=== PATIENT | female | born 1955 | race Caucasian/White ===

== ENCOUNTER → 2020-01-03 16:43 | Outpatient (CLI) | payer OTHER, SELFPAY ==
--- NOTE | ~2020-01-03 | MM_ITS ---
EXAMINATION: MM screening vic BI w zoila HISTORY: Screening TECHNIQUE: Craniocaudal and mediolateral oblique 3-D tomosynthesis images were obtained and synthetic 2-D images were generated. CAD analysis was submitted and interpreted. COMPARISON: No prior mammogram is available for comparison at this institution. Comparison to multipl e prior studies sequentially, with oldest reviewed study dated 02/04/2014. BREAST PARENCHYMAL COMPOSITION: There are scattered areas of fibroglandular density. FINDINGS: There are benign-appearing bilateral breast calcifications. There is no evidence of suspici ous mass, calcification, or architectural distortion to suggest malignancy in either breast. There dias s been no suspicious interval change. IMPRESSION: 1. No mammographic evidence of malignancy. 2. Recommend routine screening mammography in one year. BI-RADS Category 1: Negative Reviewed, dictated and finalized at location A.
== END ==
PROVIDERS: PCP Family Medicine; Visit Provider Obstetrics & Gynecology
DX: Z12.31 Encounter for screening mammogram for malignant neoplasm of breast (principal)
CPT/HCPCS: 77063; 77067

== ENCOUNTER → 2021-06-11 10:13 | Outpatient (CLI) | payer MEDICARE, SELFPAY ==
--- NOTE | ~2021-06-11 | MM_ITS ---
EXAMINATION: MM screening vic BI w zoila HISTORY: Screening mammogram TECHNIQUE: Craniocaudal and mediolateral oblique 3-D tomosynthesis images were obtained and synthetic 2-D images were generated. CAD analysis was submitted and interpreted. COMPARISON: 01/03/2020, 07/05/2018, 01/06/2017 bilateral screening mammogram examinations BREAST PARENCHYMAL COMPOSITION: There are scattered areas of fibroglandular density. FINDINGS: Scattered bilateral benign calcifications are again present. There is no evidence of suspic ious mass, calcification, or architectural distortion to suggest malignancy in either breast. There h as been no suspicious interval change. IMPRESSION: 1. No mammographic evidence of malignancy. 2. Recommend routine screening mammography in one year. BI-RADS Category 2: Benign finding(s). Reviewed, dictated and finalized at location C.
--- NOTE | ~2021-06-11 | DEXA_ITS ---
Bone Density Report Name: SG DASILVA Age: 66 Sex: Female Ethnicity: White Date of : 1955 Indication: postmenopausal; screening for osteoporosis; Referring Provider: ATTILA BLANCHARD Study: Bone densitometry was performed. Exam Date: June 11, 2021 Accession number: [id number] Bone Density: Region BMD T-score Z-score Classification AP Spine (L1-L4) 1.085 0.3 2.2 Normal Femoral Neck (Left) 0.827 -0.2 1.4 Normal Total Hip (Left) 1.136 1.6 2.9 Normal Femoral Neck (Right) 0.797 -0.5 1.1 Normal Total Hip (Right) 1.032 0.7 2.0 Normal Total Hip Mean 1.084 1.2 2.5 Normal World Health Organization criteria for BMD impression classify patients as: Normal (T-score at or above -1.0), Osteopenia (T-score between -1.0 and -2.5), or Osteoporosis (T-score at or below -2.5). 10-year Fracture Risk: FRAX not reported because: All T-scores for Spine Total, Hip Total, Femoral Neck at or above -1.0 Previous Exams: Region Exam Age BMD T-score BMD Change BMD Change Date g/cm2 vs Baseline vs Previous AP Spine(L1-L4) 06/11/2021 66 1.085 0.3 -0.050* 0.032* 07/05/2018 63 1.053 0.1 -0.082* 0.007 11/21/2014 59 1.046 0.0 -0.089 -0.050 10/29/2011 56 1.096 0.4 -0.039* 0.007 03/19/2009 54 1.089 0.4 -0.046 -0.046 02/09/2008 53 1.135 0.8 Total Hip(Left) 06/11/2021 66 1.136 1.6 -0.011 0.030* 07/05/2018 63 1.106 1.3 -0.041* -0.064 11/21/2014 59 1.170 1.9 0.023 -0.022 10/29/2011 56 1.192 2.1 0.045* 0.152 03/19/2009 54 1.040 0.8 -0.107 -0.107 02/09/2008 53 1.147 1.7 Total Hip(Right) 06/11/2021 66 1.032 0.7 -0.091* 0.007 07/05/2018 63 1.025 0.7 -0.098* -0.076 11/21/2014 59 1.101 1.3 -0.022 -0.039 10/29/2011 56 1.139 1.6 0.017 0.101 03/19/2009 54 1.039 0.8 -0.084 -0.084 02/09/2008 53 1.123 1.5 *Denotes significance at 95% confidence level, LSC for AP Spine = 0.022 g/cm2, LSC for Total Hip = 0.027 g/cm2 Clinical Information Provided by Patient: Has used the following medications: Vitamin D, Calcium Patient maximum height was 68 Menopause Age: 51 No regular weight bearing exercise Drinks caffeinated beverages Onset of menses at age 12 Number of children 2
== END ==
PROVIDERS: PCP Registered Nurse; Visit Provider Obstetrics & Gynecology
DX: Z12.31 Encounter for screening mammogram for malignant neoplasm of breast (principal); Z78.0 Asymptomatic menopausal state
CPT/HCPCS: 77063; 77067; 77080

== ENCOUNTER 2021-07-20 08:22 | Outpatient (CLI) | payer MEDICARE, SELFPAY ==
--- NOTE | 2021-07-20 09:21 | ECG_ITS ---
Measurements Intervals [place] Rate: 64 P: 33 FL: 121 QRS: -5 QRSD: 89 T: 30 QT: 396 QTc: 410 Interpretive Statements SINUS RHYTHM INCOMPLETE RIGHT BUNDLE BRANCH BLOCK BASELINE ARTIFACT- I, II, AVR, AVL, AVF BORDERLINE ECG Electronically Signed On 07-20-2021 9:47:50 CDT by Saeid Tillman D.O.
[2021-07-20 09:44] LABS: Basophils Absolute Auto 0.1 K/mm3 (0.0-0.1); Basophils Percent Auto 1.2 % (0.2-1.2); Eosinophils Absolute Auto 0.4 K/mm3 (0-0.3); Eosinophils Percent Auto 4.2 % (0-4.4); Hematocrit 43.8 % (37.0-47.0); Hemoglobin 14.9 g/dL (12.0-15.0); Immature Granulocyte Absolute 0.03 K/mm3 (0.00-0.031); Immature Granulocyte Percent A 0.4 % (0-0.5); Lymphocytes Absolute Auto 2.09 K/mm3 (0.9-3.2); Lymphocytes Percent Auto 25.1 % (18.3-44.2); Mean Corpuscular Hemoglobin 30.5 pg (26-34); Mean Corpuscular Volume 89.8 fl (80-100); Mean Platelet Volume 11.7 fl (7.4-10.4); Monocytes Absolute Auto 0.7 K/mm3 (0.1-0.6); Monocytes Percent Auto 8.2 % (2.6-8.5); Neutrophils Absolute Auto 5.1 K/mm3 (1.3-6.7); Neutrophils Percent Auto 60.9 % (45.5-73.1); Platelet Count Result 158 k/mm3 (150-375); Red Blood Count 4.88 M/mm3 (4.2-5.4); Red Cell Distribution Width 12.2 % (11.5-14.5); White Blood Count 8.3 K/mm3 (4.5-10.0)
[2021-07-20 09:54] LABS: Alanine Aminotransferase 36 U/L (4-35); Albumin Level 4.5 g/dL (3.5-5.1); Alkaline Phosphatase 69 U/L (38-126); Anion Gap 7 mmol/L (8-16); Aspartate Amino Transferase 39 U/L (14-36); Bilirubin,Total 1.1 mg/dL (0.2-1.3); Blood Urea Nitrogen 15 mg/dL (7-17); Calcium 9.7 mg/dL (8.4-10.2); Carbon Dioxide 30 mmol/L (22-30); Chloride 104 mmol/L (98-107); Estimated Glomerular Filt Rate > 60; Glucose 105 mg/dL (65-110); Potassium 3.8 mmol/L (3.4-5.0); Sodium 141 mmol/L (137-145)
[2021-07-20 09:56] LABS: INR 1.1; Prothrombin Time 13.9 Seconds (11.1-14.7)
[2021-07-20 09:57] LABS: Partial Thromboplastin Time 26.4 SECONDS (22.3-36.8)
== END 2021-07-20 08:23 | disposition home or self-care (01) ==
LOC: ANHSURGERY 08:24
PROVIDERS: PCP Registered Nurse; Visit Provider Urology
DX: N81.4 Uterovaginal prolapse, unspecified (principal); I10 Essential (primary) hypertension; Z01.818 Encounter for other preprocedural examination; I45.10 Unspecified right bundle-branch block
CPT/HCPCS: 36415; 80053; 85025; 85610; 85730; 86850; 86900; 86901; 87086; 87088; 93005

== ENCOUNTER 2021-07-27 02:24 | Day surgery (SDC) | payer MEDICARE, SELFPAY ==
--- NOTE | 2021-07-20 08:52 | PC.NURSE ---
Report to the Outpatient Waiting Room, entrance under the green pavilion located off [facility], at time _1000 AM on date _07/27/21 . OR Time: __1200 . - You and your visitor will be asked a series of questions to screen for COVID 19 for your protection. - Only one visitor is allowed at this time. - The patient visitor is requested to leave or wait in car when not with patient. - A mask is required within the hospital. Patients may have clear liquids (water, carbonated beverages, clear teas, apple juice) until 3 hours prior to surgery with a maximum of 20 ounces. - No food from midnight until time of surgery - Infants may have breast milk until 4 hours before surgery, infant formula 6 hours prior to surgery. - Children will be allowed to drink immediately following surgery. If applicable, please bring a bottle or sippy cup to assist with drinking. Juice, water, soda, and popsicles are readily available. For infants on formula, please bring formula the day of surgery. Pacifiers are allowed. Take the following medications with a SIP of water the morning of surgery: _LEVOTHYROXINE Medications to discontinue per physician ___PT STATES LAST DOSE ASPIRIN 07/18/[address] BLANCHARD.ALL VITAMINS AND SUPPLEMENTS 3 DAYS PRE OP Date to take last dose___07/23/21 Please no make-up, nail vietnamese, hairspray, perfume, deodorant, or body powder the day of surgery. No jewelry (including any body piercings) or valuables the day of surgery, leave them at home. Please take a shower or bath the night before, or the morning of, surgery with an antibacterial soap. Wear comfortable, loose fitting clothing. Children are encouraged to wear pajamas. - Jewelry must be removed prior to entering the operating room. Rings and piercings that are not removed may be cut off. - The hospital will not accept responsibility for valuables. - Please leave all valuables, including medications, at home the day of surgery. If you are going home after surgery, a licensed local combination truck driver must drive you home. - NO public transportation without another adult. - We recommend that an adult stay with you for 24 hours following discharge. - We also recommend that you do not drive, make important decision, drink alcoholic beverages, or take any drugs that were not prescribed by your health care provider for at least 24 hours after your discharge time. For Pediatric surgeries, we recommend two adults accompany the child home (only one inside the building at this time). Follow any additional instructions given to you from your surgeon. If you or anyone in your household have experienced Covid symptoms in the past week, please notify your surgeon or the nurse liaison at the phone number below for possible testing. VERBAL AND WRITTEN instructions given to PATIENT and asked if any additional questions and then verbalized understanding. Patient advised to call surgeon office or pre surgery nurse liaison [phone] if any additional questions.
[2021-07-20 09:13] VITALS: BP 158/86; PULSE 72; RESP 18; TEMP 36.7; O2SAT 98; BMI 34.4
--- NOTE | 2021-07-24 08:08 | PM.IMHP ---
H&P: HPI History of Present Illness Date/Time: 07/24/21 08:08 66-year-old with uterine prolapse and stress incontinence noted on urodynamics Chief Complaint: Pelvic organ prolapse, stress incontinence Review of Systems Review of Systems: All systems reviewed & are unremarkable except as noted in HPI and below PMFSH Past Medical History Medical History History of diverticulosis Surgical History Surgical History H/O cardiac radiofrequency ablation History of right knee joint replacement Hx of neck surgery Family History Family History Grandparent Diabetes mellitus, Onset Age: 85 Carcinoma of colon Family history of pulmonary embolism, Onset Age: 91 Family history of tuberculosis Sibling Family history of blood dyscrasia, Onset Age: 51 Cerebrovascular accident, Onset Age: 51 Patient's sister is Family history of migraine headaches Asthma Family history of eczema Patient's brother is in good health, Onset Age: 56 Family history of allergic disorder Family history of elevated blood lipids Father Hypertension Family history of coronary artery disease, Onset Age: 71 Patient's father is Family history of premature coronary heart disease, Onset Age: 70 Mother Carcinoma of colon Patient's mother is Family history of migraine headaches Asthma Family history of osteoarthritis Family history of hearing loss, Onset Age: 65 Other Family history of malignant neoplasm of male breast Social History Social History Smoking status: Never smoker Second hand tobacco smoke exposure: No Alcohol intake: never Spiritual care concerns: No Meds Home Medications and Allergies Home Medications Medication Instructions Recorded Confirmed Type aspirin 81 mg tablet,delayed 81 mg PO DAILY 02/05/20 07/20/21 History release ramipril 10 mg capsule 10 mg PO BID 02/05/20 07/20/21 History levothyroxine 100 mcg capsule 100 mcg PO DAILY 03/05/21 07/20/21 History hydrochlorothiazide 12.5 mg tablet 12.5 mg PO DAILY 07/09/21 07/20/21 History linaclotide 72 mcg capsule 74 mcg PO PRN PRN cap 07/09/21 07/20/21 History ascorbic acid (vitamin C) 500 mg PO DAILY 07/20/21 07/20/21 History calcium carbonate-vitamin D3 2 tablet PO DAILY 07/20/21 07/20/21 History [Calcium 600 + D(3)] famotidine [Pepcid] 20 mg PO PRN PRN 07/20/21 07/20/21 History Allergies Allergy/AdvReac Type Severity Reaction Status Date / Time cefuroxime Allergy Unknown Rash Verified 07/20/21 08:32 Cephalosporins Allergy Unknown Rash Verified 07/20/21 08:31 Quinolones Allergy Unknown Rash Verified 07/20/21 08:31 nalbuphine [From Nubain] Allergy Nausea and Verified 07/20/21 08:40 Vomiting GEMIFLOXACIN MESYLATE Allergy Severe RASH Uncoded 07/20/21 08:31 Exam Narrative: No acute distress Normal breathing Alert oriented x3 Urethral mobility [place] at +2 Assessment and Plan Assessment and plan (1) Uterine prolapse: Code(s): N81.4 - Uterovaginal prolapse, unspecified Status: Acute Assessment and Plan: Robotic sacral colpopexy (2) ZOË (stress urinary incontinence, female): Code(s): N39.3 - Stress incontinence (female) (male) Status: Acute Assessment and Plan: Urethral sling
[2021-07-27] VITALS (10 sets, daily range): BP systolic 109–146; BP diastolic 59–90; PULSE 54–82; RESP 16–20; TEMP 35.7–36.6; O2SAT 93–100
--- NOTE | 2021-07-27 07:21 | WPDHPUPDATE1 ---
History and Physical Update Update Date/Time: 07/27/21 07:21 History and Physical has been reviewed, including an updated exam of the patient. There are NO changes in the patient's condition. Risks, benefits, and alternatives have been discussed and questions answered. Patient agrees to proceed with procedure.
--- NOTE | 2021-07-27 10:02 | PM.IMHP ---
H&P: HPI History of Present Illness Date/Time: 07/27/21 10:02 Patient with history of incomplete uterine prolapse. She desires definitive treatment with sacralcolpopexy. Necessitating supracervical hysterectomy. Recommend bilateral salpingo-oophorectomy. Chief Complaint: Uterine descensus Review of Systems Review of Systems: All systems reviewed & are unremarkable except as noted in HPI and below Cardiovascular: Cardiovascular: Reports no additional cardiovascular complaints, Denies chest pain and Denies dyspnea Respiratory: Respiratory: Reports no additional respiratory complaints and Denies dyspnea Gastrointestinal: Gastrointestinal: Reports abdominal pain, Denies change in bowel habits, Denies diarrhea, Denies nausea and Denies vomiting Genitourinary: Genitourinary: Reports pelvic pain Musculoskeletal: Musculoskeletal: Reports back pain Integumentary/Breasts: Skin/Breast: Reports system reviewed and no additional complaints, except as docu Neurologic: Reports system reviewed and no additional complaints, except as documented PMFSH Past Medical History Medical History History of diverticulosis Surgical History Surgical History H/O cardiac radiofrequency ablation History of right knee joint replacement Hx of neck surgery Family History Family History Grandparent Diabetes mellitus, Onset Age: 85 Carcinoma of colon Family history of pulmonary embolism, Onset Age: 91 Family history of tuberculosis Sibling Family history of blood dyscrasia, Onset Age: 51 Cerebrovascular accident, Onset Age: 51 Patient's sister is Family history of migraine headaches Asthma Family history of eczema Patient's brother is in good health, Onset Age: 56 Family history of allergic disorder Family history of elevated blood lipids Father Hypertension Family history of coronary artery disease, Onset Age: 71 Patient's father is Family history of premature coronary heart disease, Onset Age: 70 Mother Carcinoma of colon Patient's mother is Family history of migraine headaches Asthma Family history of osteoarthritis Family history of hearing loss, Onset Age: 65 Other Family history of malignant neoplasm of male breast Social History Social History Smoking status: Never smoker Second hand tobacco smoke exposure: No Alcohol intake: never Living arrangements: with family Spiritual care concerns: No Meds Home Medications and Allergies Home Medications Medication Instructions Recorded Confirmed Type aspirin 81 mg tablet,delayed 81 mg PO DAILY 02/05/20 07/20/21 History release ramipril 10 mg capsule 10 mg PO BID 02/05/20 07/20/21 History levothyroxine 100 mcg capsule 100 mcg PO DAILY 03/05/21 07/20/21 History hydrochlorothiazide 12.5 mg tablet 12.5 mg PO DAILY 07/09/21 07/20/21 History linaclotide 72 mcg capsule 74 mcg PO PRN PRN cap 07/09/21 07/20/21 History ascorbic acid (vitamin C) 500 mg PO DAILY 07/20/21 07/20/21 History calcium carbonate-vitamin D3 2 tablet PO DAILY 07/20/21 07/20/21 History [Calcium 600 + D(3)] famotidine [Pepcid] 20 mg PO PRN PRN 07/20/21 07/20/21 History Allergies Allergy/AdvReac Type Severity Reaction Status Date / Time cefuroxime Allergy Unknown Rash Verified 07/27/21 10:41 Cephalosporins Allergy Unknown Rash Verified 07/27/21 10:41 Quinolones Allergy Unknown Rash Verified 07/27/21 10:41 nalbuphine [From Nubain] Allergy Nausea and Verified 07/27/21 10:41 Vomiting GEMIFLOXACIN MESYLATE Allergy Severe RASH Uncoded 07/27/21 10:41 Exam Const: Orientation/consciousness: oriented to person and oriented to place HENMT: Head: normal to inspection Eyes: General: appearance normal, both eyes and
--- NOTE | 2021-07-27 10:21 | WPDANESEPPF ---
Anes - Initial Pre Proc Eval Procedure: Operation Date: 07/27/21 12:00 Proposed Procedures p Robotic Assissted Supracervical Hysterectomy with Bilateral Salpingo-Oophorectomy - Louie Evans MD s Robotic Sacrocolpopexy with Urethral Sling - Markell Paniagua MD Date/Time: 07/27/21 10:21 Surgeon: Louie Evans MD Pre Op Diagnosis: incomplete uterovaginal prolapse Patient Data Age: 66 Gender: F Height: 1.7 m Weight: 99.9 kg Last Vital Signs Temp 36.7 C 07/20/21 09:13 Pulse 72 07/20/21 09:13 Resp 18 07/20/21 09:13 BP 158/86 H 07/20/21 09:13 Pulse Ox 98 07/20/21 09:13 Allergies Allergy/AdvReac Type Severity Reaction Status Date / Time cefuroxime Allergy Unknown Rash Verified 07/20/21 08:32 Cephalosporins Allergy Unknown Rash Verified 07/20/21 08:31 Quinolones Allergy Unknown Rash Verified 07/20/21 08:31 nalbuphine [From Nubain] Allergy Nausea and Verified 07/20/21 08:40 Vomiting GEMIFLOXACIN MESYLATE Allergy Severe RASH Uncoded 07/20/21 08:31 Home Medications Medication Instructions Recorded Confirmed Type aspirin 81 mg tablet,delayed 81 mg PO DAILY 02/05/20 07/20/21 History release ramipril 10 mg capsule 10 mg PO BID 02/05/20 07/20/21 History levothyroxine 100 mcg capsule 100 mcg PO DAILY 03/05/21 07/20/21 History hydrochlorothiazide 12.5 mg tablet 12.5 mg PO DAILY 07/09/21 07/20/21 History linaclotide 72 mcg capsule 74 mcg PO PRN PRN cap 07/09/21 07/20/21 History ascorbic acid (vitamin C) 500 mg PO DAILY 07/20/21 07/20/21 History calcium carbonate-vitamin D3 2 tablet PO DAILY 07/20/21 07/20/21 History [Calcium 600 + D(3)] famotidine [Pepcid] 20 mg PO PRN PRN 07/20/21 07/20/21 History Patient hx anesthesia problems: none Family hx anesthesia problems: none Results Review: All pre-operative results and documents have been reviewed as part of the pre-operative evaluation. [facility] Past Medical History Medical History Arthritis History of diverticulosis Hypertension Hypothyroid KRISTIAN (obstructive sleep apnea) Surgical History Surgical History H/O cardiac radiofrequency ablation History of right knee joint replacement Hx of neck surgery Family History Family History Grandparent Diabetes mellitus, Onset Age: 85 Carcinoma of colon Family history of pulmonary embolism, Onset Age: 91 Family history of tuberculosis Sibling Family history of blood dyscrasia, Onset Age: 51 Cerebrovascular accident, Onset Age: 51 Patient's sister is Family history of migraine headaches Asthma Family history of eczema Patient's brother is in good health, Onset Age: 56 Family history of allergic disorder Family history of elevated blood lipids Father Hypertension Family history of coronary artery disease, Onset Age: 71 Patient's father is Family history of premature coronary heart disease, Onset Age: 70 Mother Carcinoma of colon Patient's mother is Family history of migraine headaches Asthma Family history of osteoarthritis Family history of hearing loss, Onset Age: 65 Other Family history of malignant neoplasm of male breast Social History Social History Smoking status: Never smoker Second hand tobacco smoke exposure: No Alcohol intake: never Living arrangements: with family Spiritual care concerns: No Anes - Eval Final PreProcedure Day of Procedure 07/27/21 10:21 Patient weight: obese Heart: regular rate and rhythm Lungs: clear to auscultation Airway: Mallampati scale class II Neurological: alert and oriented Last oral intake: >/= 8 hours ASA classification: III Emergent: no Anesthetic plan: proceed Anesthesia type and monitoring: general ETT and standard monitoring Res
[2021-07-27] MEDS: LACTATED RINGERS 1,000 ML 30 ML IV CONT ×3 (10:28→16:10)
[2021-07-27] MEDS: ACETAMINOPHEN 500 MG TABLET 1000 MG PO (10:30)
[2021-07-27] MEDS: KETOROLAC 15 MG/ML VIAL (*BKC) IV PUSH ×2 (10:31→17:35)
--- NOTE | 2021-07-27 11:48 | WPDHPUPDATE1 ---
History and Physical Update Update Date/Time: 07/27/21 11:48 History and Physical has been reviewed, including an updated exam of the patient. There are NO changes in the patient's condition. Risks, benefits, and alternatives have been discussed and questions answered. Patient agrees to proceed with procedure.
[2021-07-27] MEDS: CLINDAMYCIN 900 MG/D5W 50 ML 900 MG/50 ML PIGGYBACK 50 MG IVPB (12:23)
[2021-07-27] MEDS: metroNIDAZOLE 500 MG/ISO 100ML 500 MG/100 ML BAG 100 MG IVPB (12:35)
[2021-07-27] MEDS: LIDO 1%/EPINEPHRINE 1:100,000 50 ML VIAL INFILTRATE (13:22)
--- NOTE | 2021-07-27 14:04 | W.PM.PROC2 ---
Procedure Note - Detailed Date of Procedure 07/27/21 Pre-op Diagnosis incomplete uterovaginal prolapse Post-op Diagnosis Same Procedure Performed Robotic assisted laparoscopic supracervical hysterectomy with bilateral salpingo-oophorectomy. Surgeon Louie Evans MD Anesthesia General Indications Incomplete uterovaginal prolapse. Findings Uterus boggy, normal fallopian tubes and ovaries bilaterally. Description of Procedure After informed consent was obtained she was taken to the operating room and general endotracheal anesthesia was administered. She was placed in low lithotomy position. An exam under anesthesia was performed. Uterus mildly enlarged retroverted, no adnexal masses palpated. She was and prepped and draped in sterile fashion. Harmon catheter placed in bladder. Attention was turned to the vagina. The cervix was at the os and a single-tooth tenaculum placed on anterior lip of the cervix the uterus sounded to 10 cm. An acorn uterine manipulator was inserted and secured. Dr. Paniagua inserted robotic ports in the abdomen. After robotic arms secured to ports and instruments placed. Then attention was turned to surgical console. Attention was turned to the right round ligament which was cauterized and incised with the the ligating instrument. The anterior leaf of the broad ligament was further dissected anteriorly to the vesicouterine peritoneum. The right side of the vesicouterine peritoneum of the was dissected from the lower uterine segment and upper cervix. The right infundibulopelvic ligament was cauterized and incised. The posterior leaf of the broad ligament was further dissected. The uterine vessels on the right were skeletonized. The ascending uterine vessels on the right were cauterized. The uterine vessels were ligated. Attention was turned to the left round ligament which was cauterized and ligated and the anterior leaf of the broad ligament on the left was dissected. The rest of the vesicouterine peritoneum was dissected off of the uterus, further displacing the bladder inferiorly. Once the bladder was dissected the lower uterine segment to the top of cervix then the posterior leaf of the broad ligament was further dissected. The left infundibulopelvic ligament was cauterized and ligated. The ascending uterine vessels were ligated with the vessel sealer. The uterine arteries were skeletonized. The uterine arteries were ligated with the vessel sealer. The uterus was incised midline and the uterus was removed from the cervix with cautery. The uterus was placed in the endocatch bag. The pelvis was hemostatic. Dr. Paniagua then proceeded with his surgery. Estimated Blood Loss 20 Drains No Packing No Pathology Yes (uterus and right and left fallopian tubes and ovaries) Complications No immediate complications Condition Stable Disposition Other [facility] Billing Surgery - Charge Forward: Surgery Billing
--- NOTE | 2021-07-27 15:50 | W.PM.PROC2 ---
Procedure Note - Detailed Date of Procedure 07/27/21 Pre-op Diagnosis incomplete uterovaginal prolapse, stress incontinence Post-op Diagnosis Same Procedure Performed Robotic assisted laparoscopic sacral colpopexy Urethral sling Cystoscopy Surgeon Markell Paniagua MD Anesthesia General Indications This is a patient with uterine prolapse as well as stress incontinence. She desires surgical correction. She is here for the above. She understands risks of bleeding, infection, diskitis, damage to surrounding organs, bowel injury, bowel obstruction, mesh related complications including exposure and extrusion, postoperative voiding dysfunction including incontinence and retention, need for ancillary procedures, dyspareunia, recurrence of prolapse, and other perioperative intraoperative postoperative complications. She agrees to proceed. Findings See below Description of Procedure She was correctly identified. Informed consent obtained. She from the operating room. She was given general anesthesia. She was given appropriate perioperative antibiotics. She was placed a low lithotomy position. Pressure points were padded. A time-out performed. I marked out the skin 3 fingerbreadths cephalad to the umbilicus. I anesthetized the skin. I incised the skin. I dissected down to the fascia. I grasped the fascia with Dennis clamps. I entered the fascia sharply in a Paris type technique. I placed sutures for later fascial closure. I placed a midline trocar. I examined the abdomen. There is no sign of any injury. Under direct vision I placed 2 additional trocars in the right upper quadrant and 2 additional trocars the left upper quadrant. She was placed in steep Trendelenburg. The robot was docked. Her bobbin trucker completed their portion of the procedure. Please see that operative report for details. I then sat at the console. The Sizer in the vagina created plane on the anterior and posterior vaginal wall. I took great care not to injure the vagina, bladder, or rectum. I introduced the mesh into the abdomen. I sewed the anterior leaflet of mesh on the anterior vaginal wall. I sewed the posterior leaflet of mesh on the posterior vaginal wall. This was done with several sutures of 2 0 Dexter-Sridhar. I reflected the colon laterally. I opened the posterior peritoneum over the sacral promontory. I carried this into the cul-de-sac. I freed up the edges for later retroperitonealization. I located the anterior longitudinal ligament the sacrum. I cleaned off all fatty tissues. I then tensioned my mesh appropriately. I did a vaginal exam the bedside. I assured prolapse reduction without undue tension. I then sewed the proximal leaflet of mesh onto the anterior longitudinal ligament of the sacrum with several sutures of 2 0 Dexter-Sridhar. I then used a 2 0 Monocryl to completely and meticulously retroperitonealized all mesh. I allowed the colon to go back to its normal anatomic location. There is no sign of any impingement. The specimen was then removed. All ports removed. Fascia was tied down. Skin was closed with Monocryl and surgical glue. She was repositioned and prepped for urethral sling. I marked out the inner thigh incisions. I anesthetized the skin and made the incisions. I then anesthetized the anterior vaginal wall at the mid urethra. I made a 1 cm incision. I dissected out laterally taking great care not to injure the refilled vaginal wall. I passed the helical trocars. I did this 1st on the left and then on the right. This was done from the thigh incision towards the vaginal incision. Sling was connected to the trocars and brought out the thigh incision. I tensioned the sling appropriately. I cut and the plastic sheaths. I closed the incision with 2 0 Vicryl. I then performed cystoscopy. There was no tumors or surgical artifact. Both ureters were seen to excrete clear yellow urine. There is no surgical artifact in the bladder or
--- NOTE | 2021-07-27 16:23 | SUR.PHASEI ---
1622: Simple mask removed.
[2021-07-27] MEDS: KCL 20 MEQ/D5/0.45% SOD CHL 1,000 ML 100 ML IV CONT (17:35)
[2021-07-27] MEDS: ramipriL 5 MG CAPSULE 10 MG PO (21:04)
[2021-07-27] MEDS: metroNIDAZOLE 250 MG TABLET 500 MG PO (21:04)
[2021-07-27] MEDS: OLOPATADINE 0.1% OPHTH SOLN 5 ML BTL 1 DROP EACH EYE (22:00)
[2021-07-28 00:10] VITALS: BP 127/65; PULSE 81; RESP 18; TEMP 36.6; O2SAT 99
[2021-07-28 05:00] VITALS: BP 139/69; PULSE 79; RESP 18; TEMP 36.6; O2SAT 98
[2021-07-28] MEDS: metroNIDAZOLE 250 MG TABLET 500 MG PO (05:32)
--- NOTE | 2021-07-28 06:01 | PM.DS ---
DS: Admitting Diagnosis Discharge Date 07/28/2021 Admitting Diagnosis Incomplete vaginal prolapse DS: Discharge Diagnosis Discharge Diagnosis (1) Incomplete uterine prolapse: Code(s): N81.2 - Incomplete uterovaginal prolapse Status: Acute DS: Summary Hospital Course Reason for hospitalization: She was admitted for surgery for incomplete uterovaginal prolapse. She had an uncomplicated robotic supracervical hysterectomy and bilateral salpingo-oophorectomy and Dr. Paniagua performed a sacralcolpopexy and sling procedure. She did well postoperatively. On postop day 1 she was ambulating without difficulty tolerating regular diet and she had a voiding trial. She had adequate pain control. She had positive flatus. She had discharge orders per Dr. Paniagua. She was doing well postoperatively from ob/gyn doctor service and discharge instructions were reviewed with her. Hospital Course: She was admitted on 07/28/2021 and had an uncomplicated robotic supracervical hysterectomy and combined with sacralcolppexy and sling by Dr. Paniagua. Postoperatively she did well. She had adequate pain control. She was ambulating and tolerating regular diet well. Time Spent with Patient Time attestation: Total time spent providing and/or coordinating discharge services: Exam Const: General: comfortable and no acute distress Orientation/consciousness: oriented to person, oriented to place and oriented to time Resp: Auscultation: clear to auscultation bilaterally Cardio: Rate: regular rate Rhythm: regular rhythm GI: Inspection: incision (intact no drainage) GI Palp: Yes Soft to palpation Auscultation: normal bowel sounds Neuro: General: oriented to person, oriented to place and oriented to time Extrem: General: no calf tenderness Psych: Mental Status: mental status grossly normal DS: Data Data Completed and Pending Pending studies at discharge: Pending at discharge 07/27/21 14:34 Surgical [PTH] Routine Discharge Plan Discharge Patient Disposition: Home, Self-Care Discharge Instructions: No lifting >20lb, exercise for 6 weeks No tub bath or pool for 2 weeks No intercourse for 6 weeks Patient Instructions: Hysterectomy (DC) Stand Alone Forms: General Discharge Instructions Follow-up/Referrals: Markell Paniagua MD [Physician] - (Six weeks) Discharge Medications: New hydrocodone-acetaminophen 5-325 mg tablet 1 tablet PO Q6H PRN (Reason: pain) Qty: 20 RF: 0 docusate sodium [Colace] 100 mg capsule 100 mg PO BID Qty: 60 RF: 0 Continued levothyroxine 100 mcg capsule 100 mcg PO DAILY RF: 0 Linzess 72 mcg capsule 74 mcg PO PRN PRN (Reason: Constipation) RF: 0 hydrochlorothiazide 12.5 mg tablet 12.5 mg PO DAILY RF: 0 ramipril [Altace] 10 mg capsule 10 mg PO BID RF: 0 calcium carbonate-vitamin D3 [Calcium 600 + D(3)] 600 mg-10 mcg (400 unit) Tablet 2 tablet PO DAILY RF: 0 ascorbic acid (vitamin C) 500 mg Capsule 500 mg PO DAILY RF: 0 famotidine [Pepcid] 20 mg Tablet 20 mg PO PRN PRN (Reason: Heartburn) RF: 0 Held aspirin [Adult Aspirin Regimen] 81 mg tablet,delayed release (DR/EC) 81 mg PO DAILY RF: 0 Hold Instructions: Resume on 07/29/21.
[2021-07-28 07:30] VITALS: BP 127/68; PULSE 65; RESP 18; TEMP 37; O2SAT 96
[2021-07-28 08:00] VITALS: PULSE 65; RESP 18; O2SAT 96
[2021-07-28] MEDS: LEVOTHYROXINE SODIUM 100 MCG TABLET PO (08:02)
[2021-07-28] MEDS: HYDROcodone/acetaminophen (*CRX) 5-325 MG TABLET 1 TAB PO (08:02)
--- NOTE | 2021-07-28 08:12 | WPDANESPN ---
Anes - Prog Note Post-Op Date/Time: 07/28/21 08:12 Cardiovascular status: normal Respiratory status: normal Airway patency: baseline Mental status: baseline Post-Op hydration status: normal Vital Signs: Last Vital Signs Temp 36.6 C 07/28/21 05:00 Pulse 79 07/28/21 05:00 Resp 18 07/28/21 05:00 BP 139/69 07/28/21 05:00 Pulse Ox 98 07/28/21 05:00 Pain Score (VAS): 0 I/O: Intake & Output 07/27/21 07/28/21 07/28/21 23:59 07:59 15:59 Intake Total 500 2650 Output Total 260 1750 Balance 240 900 Post-procedural complaints: none Patient Feedback: Patient satisfied with anesthetic care.
[2021-07-28] MEDS: ASCORBIC ACID 500 MG TABLET PO (10:36)
[2021-07-28] MEDS: ramipriL 5 MG CAPSULE 10 MG PO (10:36)
[2021-07-28] MEDS: ENOXAPARIN 30 MG/0.3 ML SYRINGE SUB-Q (10:37)
[2021-07-28] MEDS: levoFLOXacin 500 MG/D5W 100 ML 500 MG/100 ML BAG 100 MG IVPB (10:37)
[2021-07-28] MEDS: hydroCHLOROthiazide 12.5 MG CAPSULE PO (10:38)
== END 2021-07-28 10:45 | disposition home or self-care (01) ==
LOC: ANHSURGERY 13:29 → ANHOB2 16:58
PROVIDERS: Urology; PCP Registered Nurse; Visit Provider Obstetrics & Gynecology
PROC: (CPT 58542; principal; 2021-07-27 12:00)
PROC: (CPT 57425; 2021-07-27 12:00)
DX: N39.3 Stress incontinence (female) (male) (principal); N81.2 Incomplete uterovaginal prolapse; Z79.82 Long term (current) use of aspirin; E03.9 Hypothyroidism, unspecified; M19.90 Unspecified osteoarthritis, unspecified site; I10 Essential (primary) hypertension; G47.33 Obstructive sleep apnea (adult) (pediatric); E66.9 Obesity, unspecified; Z68.33 Body mass index [BMI] 33.0-33.9, adult; N80.0 Endometriosis of uterus; N73.6 Female pelvic peritoneal adhesions (postinfective)
CPT/HCPCS: 57288; 57425; 58542; S2900 ×2; 36415; 80053; 85025; 85610; 85730; 86850; 86900; 86901; 87086; 87088; 88307; 93005; 99199; A9270; C1771; C1781; C9290; J1100; J1650; J1885; J1956; J2250; J2405; J2704; J2710; J3010; J3480; J7030; J7120

== ENCOUNTER → 2022-07-22 13:21 | Outpatient (CLI) | payer MEDICARE, SELFPAY ==
--- NOTE | ~2022-07-22 | MM_ITS ---
EXAMINATION: MM screening vic BI w zoila HISTORY: Screening mammogram TECHNIQUE: Craniocaudal and mediolateral oblique 3-D tomosynthesis images were obtained and synthetic 2-D images were generated. CAD analysis was submitted and interpreted. COMPARISON: 06/11/2021 01/03/2020, 07/05/2018 BREAST PARENCHYMAL COMPOSITION: There are scattered areas of fibroglandular density. FINDINGS: Scattered benign-appearing calcifications are present. No suspicious mass, calcification, o r architectural distortion are identified in either breast to suggest malignancy. There has been no s uspicious interval change. IMPRESSION: 1. No mammographic evidence of malignancy. 2. Recommend routine screening mammography in one year. BI-RADS Category 2: Benign finding(s). Reviewed, dictated and finalized at location A.
== END ==
PROVIDERS: PCP Obstetrics & Gynecology; Visit Provider Obstetrics & Gynecology
DX: Z12.31 Encounter for screening mammogram for malignant neoplasm of breast (principal)
CPT/HCPCS: 77063; 77067

== ENCOUNTER 2023-08-12 12:56 | Outpatient (CLI) | payer MEDICARE, SELFPAY ==
--- NOTE | ~2023-08-12 | MM_ITS ---
EXAMINATION: MM screening vic BI w zoila HISTORY: Screening mammogram TECHNIQUE: Craniocaudal and mediolateral oblique 3-D tomosynthesis images were obtained and synthetic 2-D images were generated. CAD analysis was submitted and interpreted. COMPARISON: 07/22/2022, 06/11/2021 bilateral screening mammogram examinations BREAST PARENCHYMAL COMPOSITION: There are scattered areas of fibroglandular density. FINDINGS: There is a biopsy marker on the left; history of prior benign stereotactic biopsy in 2016. Scattered benign calcifications are again noted. There is no evidence of suspicious mass, calcificati on, or architectural distortion to suggest malignancy in either breast. There has been no suspicious interval change. IMPRESSION: 1. No mammographic evidence of malignancy. 2. Recommend routine screening mammography in one year. BI-RADS Category 2: Benign finding(s). Reviewed, dictated and finalized at location B.
== END 2023-08-12 12:57 ==
LOC: MICIMG 12:56
PROVIDERS: PCP Obstetrics & Gynecology; Visit Provider Obstetrics & Gynecology
DX: Z12.31 Encounter for screening mammogram for malignant neoplasm of breast (principal)
CPT/HCPCS: 77063; 77067

== ENCOUNTER 2024-01-19 07:31 | Outpatient (CLI) | payer MEDICARE, SELFPAY ==
[2024-01-13 15:30] VITALS: BMI 30.4
--- NOTE | 2024-01-13 15:31 | PC.NURSE ---
Pre Radiology instructions Report to the outpatient carol hunter on date __01/19/24___ at time __7:30AM for procedure Time: _9:30AM___ YOU MAY BE MONITORED AT HOSPITAL FOR UP TO 4 HOURS AFTER YOUR PROCEDURE. A visitor will be allowed to accompany the patient into the hospital. You and your visitor will be asked to self-screen and do not enter if you have any COVID symptoms. A mask is OPTIONAL within the hospital. Patients are to have no food or drink 6 hours prior to procedure time Driving will be restricted after the procedure, you must have a person to drive you home. Labs will be drawn in preop area and once reviewed, you will be taken to radiology area for procedure. When the procedure is completed, you will be taken to outpatient where you will be monitored for several hours. You may have one visitor in this area. Other than holding anti-coagulants, patient may take other medication(s) as scheduled. Prior to your appointment date patients are instructed to hold anti-coagulants after discussing with ordering provider to stop. If unable to discontinue anti-coagulants please notify radiologist. ? No aspirin or warfarin (Coumadin) for 7 days prior to the procedure. ? No clopidogrel (Plavix), ticagrelor (Brilinta), prasugrel (Effient) or dabigatran (Pradaxa) for 5 days prior to the procedure. ? No rivaroxaban (Xarelto), apixaban (Eliquis), dipyridamole (Aggrenox or Persantine) or cilostazol (Pletal) for 2 days prior to the procedure. Medications to discontinue per physician: __NONE Date to take last dose: Please leave all valuables, including medications, at home the day of procedure. The hospital will not accept responsibility for valuables. Wear comfortable, loose fitting clothing.? Follow any additional instructions given to you from ordering provider. Telephone instructions given to ____PATIENT and asked if any additional questions and then verbalized understanding. Patient advised to call scheduling provider office or registration scheduling [phone] if any additional questions.
[2024-01-19] VITALS (12 sets, daily range): BP systolic 112–149; BP diastolic 49–76; PULSE 48–69; RESP 14–16; TEMP 36.7; O2SAT 98–99
--- NOTE | ~2024-01-19 | US_ITS ---
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 Risks discu ssed included bleeding and infection. The patient understood the risks and agreed to proceed. The sk in overlying the liver was prepped and draped in usual sterile fashion. Anesthetic was administered with 1% lidocaine subcutaneously. An 18 gauge core biopsy needle was advanced under continuous ultra sound observation to the lesion of interest. 3 core biopsy specimens were obtained. The needle was removed and the entry site was cleaned and dressed. Post procedure ultrasound demonstrated no hemorr comfort. FINDINGS: Ultrasound images demonstrate biopsy needle advanced into the left hepatic lobe. IMPRESSION: 1. Successful Ultrasound-guided left hepatic lobe random biopsy. Reviewed, dictated and finalized at location A.
[2024-01-19 08:20] LABS: Mean Platelet Volume 11.8 fl (7.4-10.4); Platelet Count Result 145 k/mm3 (150-375)
[2024-01-19 08:31] LABS: INR 1.2; Prothrombin Time 15.5 Seconds (11.1-14.7)
== END 2024-01-19 14:10 | disposition home or self-care (01) ==
PROVIDERS: PCP Registered Nurse; Referring Provider Nurse Practitioner Family; Visit Provider Radiology Diagnostic Radiology
PROC: BF45ZZZ Ultrasonography of Liver (ICD-10-PCS; CPT 47000; principal; 2024-01-19 09:30)
DX: E83.00 Disorder of copper metabolism, unspecified (principal); K74.60 Unspecified cirrhosis of liver
CPT/HCPCS: 36415; 47000; 76942; 85049; 85610; 88307; 88312; 88313

== ENCOUNTER 2024-05-02 01:11 | Day surgery (SDC) | payer MEDICARE, SELFPAY ==
[2024-04-16 12:52] VITALS: BMI 30.5
--- OUTSIDE RECORDS SUMMARY | 2024-05-02 01:15 | XMS_ITS | Clinical Summary ---
Author Organization [facility] [employer] Address [address] [place] [address] Care Team Providers Care Wire Spring Relay Adjuster Name Role Phone Radha Tucker APRN-STUCCO LABORER Primary Care Provider Source Comments [facility],non-owned Affiliates and Associated Physician Practices is amultiple site organization consisting of ambulatory clinics and hospital sitesin [place], [place], [place] and [place]. This disclosure is being madepursuant to the Care Everywhere program and may not contain all information available regarding this patient. Last updated 17.[facility] Immunizations Name Administration Dates Next Due INFLUENZA VACCINE, QUADR. (F LUZONE; FLULAVAL; FLUARIX; AFLURIA QUADRIVALENT; 6MO+), 0.5 ML (IIV4) 12/29/2018 TDAP (7yrs+) 12/29/2018 Social History Tobacco Use Types Packs/Day Years Used Date Smoking Tobacco: Never Assessed Sex and Gender Information Value Date Recorded Sex Assigned at Not on file Gender Identity Not on file Sexual Orientation Not on file Plan of Treatment Health Maintenance Due Date Last Done Comments BONE DENSITY TESTING 1955 COLOGUARD (AGES 45-75) - COL ON CA SCREENING 1955 COLON MONITORING 1955 COLONOSCOPY - COLON CA SCREENING 1955 CT COLONOGRAPHY - COLON CA SCREENING 1955 Colorectal Cancer Screening 1955 FIT - COLON CA SCREENING 1955 FLEX SIG - COLON CA SCREENING 1955 LIPID TESTING 1955 MAMMOGRAM 1955 HEPATITIS C SCREENING 02/03/1973 PNEUMOCOCCAL VACCINE 50+ (1 of 2 - PCV) 1974 ZOSTER VACCINE (1 of 2) 2005 HEPATITIS B VACCINE (1 of 3 - Risk 3-dose series) 2015 Respiratory Syncytial Virus (RSV) Vaccine Pt: or over 60 yrs (1 - Risk 60-74 years 1-dose series) 2015 COVID-19 VACCINE (1 - 2023-2 5 season) 2023 INFLUENZA VACCINE (#1) 2023 9, 12/11/2015 DEPRESSION SCREENING 03/21/2024 MEDICARE AWV CALENDAR YEAR 2024 DTAP/TDAP/TD VACCINES (2 - T d or Tdap) 12/29/2028 12/29/2018 HIB VACCINE Aged Out No longer eligi ble based on patient's age to complete this topic HPV VACCINE Aged Out No longer eligi ble based on patient's age to complete this topic MENINGOCOCCAL (Group B) VACCINE Aged Out No longer eligible b ased on patient's age to complete this topic MENINGOCOCCAL VACCINE Aged Out No kiki sweta eligible based on patient's age to complete this topic Care Teams Wire Spring Relay Adjuster Relationship Specialty Start Date End Date Radha Tucker, YOUTH CARE SPECIALIST-STUCCO LABORER [address] [place] [address] PCP - General 07/30/21
--- OUTSIDE RECORDS SUMMARY | 2024-05-02 01:15 | XMS_ITS | Encounter Summary ---
Author Organization [facility] Address [facility] [place] [address] Care Team Providers Care Photography And Prints Curator Name Role Phone Isael Khalil MD Unavailable [phone] Tee Fajardo MD Unavailable Yehuda Carrasco MD Primary Care Provider [phone] Radha Tucker Primary Care Provider [phone] Encounter Details Date Type Department Care Team (Late st Contact Info) Description 02/28/2020 Viewex Message Enc [facility] THREE [facility], [facility] [address] [place] [address] Isael Khalil MD [facility]. [facility] [address] [place] [address] RE: Medication Questions Social History Tobacco Use Types Packs/Day Years Used Date Smoking Tobacco: Never Smokeless Tobacco: Never Alcohol Use Standard Drinks/Week Comments No 0 (1 standard drink = 0.6 oz pur e alcohol) Comments No Sex and Gender Information Value Date Recorded Sex Assigned at Not on file Legal Sex Female 3:25 PM FIRST MATE Gender Identity Female 03/31/2021 3:03 PM FIRST MATE Sexual Orientation Straight 03/31/2021 3: 03 PM FIRST MATE Occupation Industry Job Start Date Job End Date Not on file Not on file Not on file Not on file COVID-19 Exposure Response Date Recorded In the last month, have you been in contact with someone who was confirmed or suspected to have Coronavirus / COVID-19? No / Unsure 02/18/2020 3:03 PM FIRST MATE documented as of this encounter Functional Status * RETIRED Are you deaf or do you have serious difficulty hearing Answer Date of Assessment Author Status No 08/09/2019 2:57 PM CDT Activ e * RETIRED Are you blind or do you have serious difficulty seeing, even when wearing glasses? Answer Date of Assessment Author Status No 08/09/2019 2:57 PM CDT Activ e * Do you have serious difficulty walking or climbing stairs? Answer Date of Assessment Author Status No 08/09/2019 2:57 PM CDT Kayleigh [place] RN Active * Do you have difficulty dressing or bathing? Answer Date of Assessment Author Status No 08/09/2019 2:57 PM CDT Kayleigh [place] RN Active * Because of a physical, mental, or emotional condition, do you have difficulty doing errands alone such as visiting a doctor's office or shopping? Answer Date of Assessment Author Status No 08/09/2019 2:57 PM CDT Kayleigh [place] RN Active documented as of this encounter Mental Status * Because of a physical, mental, or emotional condition, do you have serious difficulty concentrating, remembering, or making decisions? Answer Entry Date Author Status No 08/09/2019 2:57 PM CDT Kayleigh [place] RN Active documented in this encounter Progress Notes * Chandni Huff RN - 02/28/2020 2:08 PM CST Please see below T MATE documented in this encounter Plan of Treatment Upcoming Encounters Date Type Department Care Team (Late st Contact Info) Description 05/07/2024 1:00 PM FIRST MATE Office Visit [facility] Medical [facility] Multispecialty Care - [facility] [address] [facility] [address], [address] [place] [id number] Radha Tucker, LUCIO [address] [place], [place] [id number] Raj Barbour MD [address] [facility] [place] [address] 01/25/2025 9:40 AM FIRST MATE Office Visit [facility] Medical [facility] Multispecialty Care - [facility] [address] [facility] [address] [place] [address] Nhan Garcia MD [address] [facility] [address] [place] [address] 03/05/2025 9:00 AM FIRST MATE Office Visit [facility] THREE [facility], [address] [place] [address] Isael Khalil MD Three [facility]. [address] [place], [place] [id number] documented as of this encounter Visit Diagnoses Not on filedocumented in this encounter Additional Health Concerns Infection Onset Date Last Indicated Resolved Time COVID-19 Rule Out 02/29/2020 02/29/2020 03/01/2020 7:50 PM FIRST MATE COVID-19 Rule Out 03/19/2021 03/19/2021 03/19/2021 2:05 PM FIRST MATE COVID-19 Rule Out 03/19/2021 03/19/2021 03/21/2021 12:00 AM FIRST MATE COVID-19 Rule Out 12/01/2021 12/01/2021 12/01/2021 11:38 PM CDT documented as of this encounter Care Teams Photography And Prints Curator Relationship Specialty Start Date End Date Yehuda Carrasco MD Three [facility]. [address] [place] [address] PCP - General FAMILY PRACTICE 06/04/19 12/29/20 Radha Tucker APNP [address] [place] [id number] PCP - General NURSE PRACTITIONER 12/30/20 Isael Khalil MD Three [facility]. [address] [address] [place] Post Form Remover CARDIOVASCULAR DISEASE 04/28/17 Tee Fajardo MD Three [facility]. [address] [id number] [place] Post Form Remover CLINICAL CARDIAC ELECTROPHYSIOLOGY 08/30/18 documented as of this encounter
--- OUTSIDE RECORDS SUMMARY | 2024-05-02 01:15 | XMS_ITS | Encounter Summary ---
Author Organization [facility] Address [facility] [place] [address] Care Team Providers Care National Expansion Recruiter Name Role Phone Isael Khalil MD Unavailable [phone] Tee Fajardo MD Unavailable Yehuda Carrasco MD Primary Care Provider [phone] Radha Tucker Primary Care Provider [phone] Encounter Details Date Type Department Care Team (Late st Contact Info) Description 09/13/2019 Solavistat Message Enc [facility] Medical [facility] Family Medicine - [place] [address] [place] [address] Aide Vieyra NP [address] [place] [address] Follow Up/Update Social History Tobacco Use Types Packs/Day Years Used Date Smoking Tobacco: Never Smokeless Tobacco: Never Alcohol Use Standard Drinks/Week Comments No 0 (1 standard drink = 0.6 oz pur e alcohol) Comments No Sex and Gender Information Value Date Recorded Sex Assigned at Not on file Legal Sex Female 3:25 PM FAST FOOD DELIVERY DRIVER Gender Identity Female 03/31/2021 3:03 PM FAST FOOD DELIVERY DRIVER Sexual Orientation Straight 03/31/2021 3: 03 PM FAST FOOD DELIVERY DRIVER Occupation Industry Job Start Date Job End Date Not on file Not on file Not on file Not on file COVID-19 Exposure Response Date Recorded In the last month, have you been in contact with someone who was confirmed or suspected to have Coronavirus / COVID-19? No / Unsure 09/13/2019 9:25 AM CDT documented as of this encounter Functional Status [...] documented in this encounter Progress Notes * Aide Vieyra NP - 09/13/2019 9:17 AM CDT Please schedule video visit to discuss this Thank you * Henrique Wu RN - 09/13/2019 8:34 AM CDT Please advise. Thanks documented in this encounter Plan of Treatment Upcoming Encounters Date Type Department Care Team (Late st Contact Info) Description 05/07/2024 1:00 PM FAST FOOD DELIVERY DRIVER Office Visit [facility] Medical Group Multispecialty Care - [address], [address] [place] [phone] Radha Tucker, APNP [address] [place] [address] Raj Barbour MD [address] [place] [address] 01/25/2025 9:40 AM FAST FOOD DELIVERY DRIVER Office Visit [facility] Medical [facility] Multispecialty Care - [facility] [address] [facility] [place] [phone] Nhan Garcia MD [address] [facility] [address] [place] [address] 03/05/2025 9:00 AM FAST FOOD DELIVERY DRIVER Office Visit [facility] THREE [facility], [address] [place] [address] Isael Khalil MD Three [facility]. [address] [place], [place] [address] documented as of this encounter Visit Diagnoses Not on filedocumented in this encounter Additional Health Concerns Infection Onset Date Last Indicated Resolved Time COVID-19 Rule Out 02/29/2020 02/29/2020 03/01/2020 7:50 PM FAST FOOD DELIVERY DRIVER COVID-19 Rule Out 03/19/2021 03/19/2021 03/19/2021 2:05 PM FAST FOOD DELIVERY DRIVER COVID-19 Rule Out 03/19/2021 03/19/2021 03/21/2021 12:00 AM FAST FOOD DELIVERY DRIVER COVID-19 Rule Out 12/01/2021 12/01/2021 12/01/2021 11:38 PM CDT documented as of this encounter Care Teams National Expansion Recruiter Relationship Specialty Start Date End Date Yehuda Carrasco MD Three [facility]. [address] [place] [address] PCP - General FAMILY PRACTICE 06/04/19 12/29/20 Radha Tucker APNP [address] [place] [address] PCP - General NURSE PRACTITIONER 12/30/20 Isael Khalil MD [facility]. [address] [address] [place] [employer] Worker CARDIOVASCULAR DISEASE 04/28/17 Tee Fajardo MD [address] [address] [place] Railroad Worker CLINICAL CARDIAC ELECTROPHYSIOLOGY 08/30/18 documented as of this encounter
--- OUTSIDE RECORDS SUMMARY | 2024-05-02 01:15 | XMS_ITS | Encounter Summary ---
Author Organization [facility] Address [facility] [place] [address] Care Team Providers Care Tugboat Mate Name Role Phone Isael Khalil MD Unavailable [phone] Tee Fajardo MD Unavailable Yehuda Carrasco MD Primary Care Provider [phone] Radha Tucker Primary Care Provider [phone] Encounter Details Date Type Department Care Team (Late st Contact Info) Description 08/23/2019 Quadriservt Message Enc [facility] Medical Group Family Medicine - [place] [address] [place] [address] Aide Vieyra NP 5 [place] [address] RE: Medication Questions Social History Tobacco Use Types Packs/Day Years Used Date Smoking Tobacco: Never Smokeless Tobacco: Never Alcohol Use Standard Drinks/Week Comments No 0 (1 standard drink = 0.6 oz pur e alcohol) Comments No Sex and Gender Information Value Date Recorded Sex Assigned at Not on file Legal Sex Female 3:25 PM PERSONAL INJURY PARALEGAL Gender Identity Female 03/31/2021 3:03 PM PERSONAL INJURY PARALEGAL Sexual Orientation Straight 03/31/2021 3: 03 PM PERSONAL INJURY PARALEGAL Occupation Industry Job Start Date Job End Date Not on file Not on file Not on file Not on file COVID-19 Exposure Response Date Recorded In the last month, have you been in contact with someone who was confirmed or suspected to have Coronavirus / COVID-19? No / Unsure 08/15/2019 1:06 PM CDT documented as of this encounter Functional [...] documented in this encounter Progress Notes * Henrique Wu RN - 08/24/2019 8:17 AM CDT Please advise. Thanks! documented in this encounter Plan of Treatment Upcoming Encounters Date Type Department Care Team (Late st Contact Info) Description 05/07/2024 1:00 PM PERSONAL INJURY PARALEGAL Office Visit [facility] Medical Group Multispecialty Care - [facility] [address] [facility], [address] [place] [phone] Radha Tucker APNP [address] [place] [address] Raj Barbour MD [address] [place] [address] [place] [address] 01/25/2025 9:40 AM PERSONAL INJURY PARALEGAL Office Visit [facility] Medical Group Multispecialty Care - [facility] 3 [facility] [place] [address] Nhan Garcia MD 3 [facility] [address] [address] [place] [address] 03/05/2025 9:00 AM PERSONAL INJURY PARALEGAL Office Visit [facility] THREE [facility], [place] [address] [place] [address] Isael Khalil MD Three [facility]. [place] [address] [place] [address] documented as of this encounter Visit Diagnoses Not on filedocumented in this encounter Additional Health Concerns Infection Onset Date Last Indicated Resolved Time COVID-19 Rule Out 02/29/2020 02/29/2020 03/01/2020 7:50 PM PERSONAL INJURY PARALEGAL COVID-19 Rule Out 03/19/2021 03/19/2021 03/19/2021 2:05 PM PERSONAL INJURY PARALEGAL COVID-19 Rule Out 03/19/2021 03/19/2021 03/21/2021 12:00 AM PERSONAL INJURY PARALEGAL COVID-19 Rule Out 12/01/2021 12/01/2021 12/01/2021 11:38 PM CDT documented as of this encounter Care Teams Tugboat Mate Relationship Specialty Start Date End Date Yehuda Carrasco MD Three [facility]. [address] [place] [address] PCP - General FAMILY PRACTICE 06/04/19 12/29/20 Radha Tucker APNP [address] [place] [address] PCP - General NURSE PRACTITIONER 12/30/20 Isael Khalil MD [facility]. [address] [address] [place] Bookkeeper CARDIOVASCULAR DISEASE 04/28/17 Tee Fajardo MD [facility]. [address] [id number] EP Bookkeeper CLINICAL CARDIAC ELECTROPHYSIOLOGY 08/30/18 documented as of this encounter
--- OUTSIDE RECORDS SUMMARY | 2024-05-02 01:15 | XMS_ITS | Encounter Summary ---
Author Organization [facility] Address [address] [place] [address] Care Team Providers Care Sewer Bricklayer Name Role Phone Isael Khalil MD Unavailable [phone] Tee Fajardo MD Unavailable Radha Tucker Primary Care Provider [phone] Reason for Visit * Reason Onset Date Comments COVID-19 08/02/2023 Encounter Details Date Type Department Care Team (Late st Contact Info) Description 08/02/2023 MyChart Message Enc [facility] Medical Group Family & Internal Medicine [facility] [address] [place] [address] Radha Tucker APNP [address] [place] [address] COVID Social History Tobacco Use Types Packs/Day Years Used Date Smoking Tobacco: Never Passive Smoke Exposure: Past Smokeless Tobacco: Never Alcohol Use Standard Drinks/Week Comments No 0 (1 standard drink = 0.6 oz pur e alcohol) AUDIT-C Answer Date Recorded Q1: How often do you have a drink containing alcohol? Never 02/22/2023 Q2: How many drinks containi ng alcohol do you have on a typical day when you are drinking? Patient does not drink Q3: How often do you have si x or more drinks on one occasion? 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 Pended for approval. I asked Chandni reach out to [facility] yesterday to inquire about the chest Xray from 07/28 still not signedoff on, but it is still not signed. Any ideas? documented in this encounter Plan of Treatment Upcoming Encounters Date Type Department Care Team (Late st Contact Info) Description 05/07/2024 1:00 PM GREENS PICKER [facility] [address] [facility], [address] [place] [phone] Radha Tucker APNP [address] [place] [address] Raj Barbour MD [address] [place], [place] [address] 01/25/2025 9:40 AM GREENS PICKER Office Visit [facility] Care - [facility] [address] [facility] [place] [phone] Nhan Garcia MD [address] [facility] [place] [place], [place] [address] 03/05/2025 9:00 AM GREENS PICKER Office Visit [facility] THREE [facility], [place] [place], [place] [address] Isael Khalil MD Three [facility]. [address] [place], [place] [address] documented as of this encounter Visit Diagnoses Diagnosis COVID-19- Primary documented in this encounter Additional Health Concerns Assessment Noted Time PHQ-9 Depression Total Score: 0 02/23/20 23 1:34 PM GREENS PICKER documented as of this encounter Care Teams Sewer Bricklayer Relationship Specialty Start Date End Date Radha Tucker APNP [address] [place] [address] PCP - General NURSE PRACTITIONER 12/30/20 Isael Khalil MD Three [facility]. [address] [address] [place] Sheet Mill Supervisor CARDIOVASCULAR DISEASE 04/28/17 Tee Fajardo MD Three [facility]. [address] [phone] EP Sheet Mill Supervisor CLINICAL CARDIAC ELECTROPHYSIOLOGY 08/30/18 documented as of this encounter
--- OUTSIDE RECORDS SUMMARY | 2024-05-02 01:15 | XMS_ITS | Encounter Summary ---
Author Organization [facility] Address [facility] [place] [address] Care Team Providers Care Group Sales Coordinator Name Role Phone Isael Khalil MD Unavailable [phone] Tee Fajardo MD Unavailable Radha Tucker Primary Care Provider [phone] Encounter Details Date Type Department Care Team (Late st Contact Info) Description 07/14/2023 Gingr Message Enc [facility], [facility] [address] [place], [place] [address] Isael Khalil MD [facility]. 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 Not on file Not [...] Date Author Status No 08/09/2019 2:57 PM BELLET Kayleigh Pickens RN Active documented in this encounter Plan of Treatment Upcoming Encounters Date Type Department Care Team (Late st Contact Info) Description 05/07/2024 1:00 PM CENTRAL OFFICE OPERATOR SUPERVISOR Office Visit [facility] Medical Group Multispecialty Care - [facility] [address] [facility], [address] [place] [address] Radha Tucker, LUICO [address] [place] [address] Raj Barbour MD 3 [place] [address] 01/25/2025 9:40 AM CENTRAL OFFICE OPERATOR SUPERVISOR Office Visit [facility] Medical Group Multispecialty Care - [facility] [address] [facility] [address] [facility] [place] [address] Nhan Garcia MD [address] [facility] [address] [place] [address] 03/05/2025 9:00 AM CENTRAL OFFICE OPERATOR SUPERVISOR Office Visit [facility] [facility], [place] [place], [place] [address] Isael Khalil MD Three [facility]. [place] [place], [place] [phone] documented as of this encounter Visit Diagnoses Not on filedocumented in this encounter Additional Health Concerns Assessment Noted Time PHQ-9 Depression Total Score: 0 02/23/20 23 1:34 PM CENTRAL OFFICE OPERATOR SUPERVISOR documented as of this encounter Care Teams Group Sales Coordinator Relationship Specialty Start Date End Date Radha Tucker APNP [address] [place] [address] PCP - General NURSE PRACTITIONER 12/30/20 Isael Khalil MD Three [facility] [place] [address] [place], [place] [address] [place] Apartment Maintenance Supervisor CARDIOVASCULAR DISEASE 04/28/17 Tee Fajardo MD [facility]. [place] [address] [place], [place] [address] EP Apartment Maintenance Supervisor CLINICAL CARDIAC ELECTROPHYSIOLOGY 08/30/18 documented as of this encounter
--- OUTSIDE RECORDS SUMMARY | 2024-05-02 01:15 | XMS_ITS | Encounter Summary ---
Author Organization [facility] Address [facility] [place] [address] Care Team Providers Care Cryptologic Technician Name Role Phone Isael Khalil MD Unavailable [phone] Tee Fajardo MD Unavailable Yehuda Carrasco MD Primary Care Provider [phone] Radha Tucker Primary Care Provider [phone] Encounter Details Date Type Department Care Team (Late st Contact Info) Description 07/23/2019 AgileMDt Message Enc [facility] Medical Group Family Medicine - [place] [address] [place] [address] Aide Vieyra NP [address] [place] [address] RE: Test Results Social History Tobacco Use Types Packs/Day Years Used Date Smoking Tobacco: Never Smokeless Tobacco: Never Alcohol Use Standard Drinks/Week Comments No 0 (1 standard drink = 0.6 oz pur e alcohol) Comments No Sex and Gender Information Value Date Recorded Sex Assigned at Not on file Legal Sex Female 3:25 PM STAND UP COMEDIAN Gender Identity Female 03/31/2021 3:03 PM STAND UP COMEDIAN Sexual Orientation Straight 03/31/2021 3: 03 PM STAND UP COMEDIAN Occupation Industry Job Start Date Job End Date Not on file Not on file Not on file Not on file COVID-19 Exposure Response Date Recorded In the last month, have you been in contact with someone who was confirmed or suspected to have Coronavirus / COVID-19? No / Unsure 07/23/2019 3:10 PM CDT documented as of this encounter Functional Status * RETIRED Are you deaf or do you have serious difficulty hearing Answer Date of Assessment Author Status No 01/26/2019 8:56 AM STAND UP COMEDIAN Activ e * RETIRED Are you blind or do you have serious difficulty seeing, even when wearing glasses? Answer Date of Assessment Author Status No 01/26/2019 8:56 AM STAND UP COMEDIAN Activ e * Do you have serious difficulty walking or climbing stairs? Answer Date of Assessment Author Status No 01/26/2019 8:56 AM Rogers Huntley RN Active * Do you have difficulty dressing or bathing? Answer Date of Assessment Author Status No 01/26/2019 8:56 AM Rogers Huntley RN Active * Because of a physical, mental, or emotional condition, do you have difficulty doing errands alone such as visiting a doctor's office or shopping? Answer Date of Assessment Author Status No 01/26/2019 8:56 AM Rogers Huntley RN Active documented as of this encounter Mental Status * Because of a physical, mental, or emotional condition, do you have serious difficulty concentrating, remembering, or making decisions? Answer Entry Date Author Status No 01/26/2019 8:56 AM Rogers Huntley RN Active documented in this encounter Progress Notes * Henrique Wu RN - 07/23/2019 7:42 AM CDT Please advise. Thanks documented in this encounter Plan of Treatment Upcoming Encounters Date Type Department Care Team (Late st Contact Info) Description 05/07/2024 1:00 PM STAND UP COMEDIAN Office Visit [facility] Medical Group Mult[facility]pec[facility]ty [facility] - [facility] [address] [facility], [address] [place] [phone] Radha Tucker, LUCIO [address] [place] [address] Raj Barbour MD 3 [place] [address] 01/25/2025 9:40 AM STAND UP COMEDIAN Office Visit [facility] Medical Group Multispecialty Care - [facility] [address] [facility] [place] [address] Nhan Garcia MD 3 [facility] [address] [place] [address] 03/05/2025 9:00 AM STAND UP COMEDIAN Office Visit [facility] THREE [facility], [place] [place] [address] Isael Khalil MD Three [facility]. [place] [address] [place] [address] documented as of this encounter Visit Diagnoses Not on filedocumented in this encounter Additional Health Concerns Infection Onset Date Last Indicated Resolved Time COVID-19 Rule Out 08/06/2019 08/06/2019 08/08/2019 10:44 AM CDT COVID-19 Rule Out 02/29/2020 02/29/2020 03/01/2020 7:50 PM STAND UP COMEDIAN COVID-19 Rule Out 03/19/2021 03/19/2021 03/19/2021 2:05 PM STAND UP COMEDIAN COVID-19 Rule Out 03/19/2021 03/19/2021 03/21/2021 12:00 AM STAND UP COMEDIAN COVID-19 Rule Out 12/01/2021 12/01/2021 12/01/2021 11:38 PM CDT documented as of this encounter Care Teams Cryptologic Technician Relationship Specialty Start Date End Date Yehuda Carrasco MD Three [facility]. [place] [address] [place] [address] PCP - General FAMILY PRACTICE 06/04/19 12/29/20 Radha Tucker APNP [facility] [place] [address] PCP - General NURSE PRACTITIONER 12/30/20 Isael Khalil MD [facility]. [address] [address] [place] Rolling Chair Pusher CARDIOVASCULAR DISEASE 04/28/17 Tee Fajardo MD [facility]. [address] [phone] EP Rolling Chair Pusher CLINICAL CARDIAC ELECTROPHYSIOLOGY 08/30/18 documented as of this encounter
--- OUTSIDE RECORDS SUMMARY | 2024-05-02 01:15 | XMS_ITS | Encounter Summary ---
Author Organization [facility] Address [facility] [place] [address] Care Team Providers Care Deodorizer Operator Name Role Phone Isael Khalil MD Unavailable [phone] Tee Fajardo MD Unavailable Yehuda Carrasco MD Primary Care Provider [phone] Radha Tucker Primary Care Provider [phone] Encounter Details Date Type Department Care Team (Late st Contact Info) Description 02/25/2020 [employer] Message Enc [facility] THREE [facility], [facility] [address] [place] [address] Isael Khalil MD [facility]. [facility] [address] [place] [address] RE: Question Social History Tobacco Use Types Packs/Day Years Used Date Smoking Tobacco: Never Smokeless Tobacco: Never Alcohol Use Standard Drinks/Week Comments No 0 (1 standard drink = 0.6 oz pur e alcohol) Comments No Sex and Gender Information Value Date Recorded Sex Assigned at Not on file Legal Sex Female 3:25 PM HELP DESK MANAGER Gender Identity Female 03/31/2021 3:03 PM HELP DESK MANAGER Sexual Orientation Straight 03/31/2021 3: 03 PM HELP DESK MANAGER Occupation Industry Job Start Date Job End Date Not on file Not on file Not on file Not on file COVID-19 Exposure Response Date Recorded In the last month, have you been in contact with someone who was confirmed or suspected to have Coronavirus / COVID-19? No / Unsure 02/18/2020 3:03 PM HELP DESK MANAGER documented as of this encounter Functional Status [...] documented in this encounter Progress Notes * Yoly Mondragon NP - 02/25/2020 4:06 PM CST Shreya, please change to video visit. Thanks DESK MANAGER * Chandni Huff RN - 02/25/2020 3:58 PM CST Okay to schedule VV instead? DESK MANAGER documented in this encounter Plan of Treatment Upcoming Encounters Date Type Department Care Team (Late st Contact Info) Description 05/07/2024 1:00 PM HELP DESK MANAGER Office Visit [facility] Medical Group Multispecialty Care - [address], [address] [place] [address] Radha Tucker, APNP [address] [place] [address] Raj Barbour MD 3 [place] [address] 01/25/2025 9:40 AM HELP DESK MANAGER Office Visit [facility] Medical Group Multispecialty Care - [facility] 3 [facility] [place] [phone] Nhan Garcia MD 3 [facility] [place] [place] [address] 03/05/2025 9:00 AM HELP DESK MANAGER Office Visit [facility] THREE [facility], [place] [address] [place] [address] Isael Khalil MD Three [facility]. [place] [address] [place] [address] documented as of this encounter Visit Diagnoses Not on filedocumented in this encounter Additional Health Concerns Infection Onset Date Last Indicated Resolved Time COVID-19 Rule Out 02/29/2020 02/29/2020 03/01/2020 7:50 PM HELP DESK MANAGER COVID-19 Rule Out 03/19/2021 03/19/2021 03/19/2021 2:05 PM HELP DESK MANAGER COVID-19 Rule Out 03/19/2021 03/19/2021 03/21/2021 12:00 AM HELP DESK MANAGER COVID-19 Rule Out 12/01/2021 12/01/2021 12/01/2021 11:38 PM CDT documented as of this encounter Care Teams Deodorizer Operator Relationship Specialty Start Date End Date [facility]eh[facility] [place] [address] [place] [address] PCP - General FAMILY PRACTICE 06/04/19 12/29/20 Radha Tucker APNP [address] [place] [address] PCP - General NURSE PRACTITIONER 12/30/20 Isael Khalil MD Three [facility] [place] [address] [place] [address] [place] Product Handler CARDIOVASCULAR DISEASE 04/28/17 Tee Fajardo MD [address] [place] [address] [place] [address] EP Product Handler CLINICAL CARDIAC ELECTROPHYSIOLOGY 08/30/18 documented as of this encounter
--- OUTSIDE RECORDS SUMMARY | 2024-05-02 01:15 | XMS_ITS | Referral Summary ---
Author Organization [facility] Address [address] [place] [address] Care Team Providers Care Entertainer Or Variety Artist Name Role Phone Radha Tucker APRN-AUDIO ENGINEER Primary Care Provider Source Comments [facility],non-owned Affiliates and Associated Physician Practices is amultiple site organization consisting of ambulatory clinics and hospital sitesin [place], [place] and [place]. This disclosure is being madepursuant to the Care Everywhere program and may not contain all information available regarding this patient. Last updated 17.[facility] Immunizations Name Administration Dates Next Due INFLUENZA VACCINE, QUADR. (F LUZONE; FLULAVAL; FLUARIX; AFLURIA QUADRIVALENT; 6MO+), 0.5 ML (IIV4) 12/29/2018 TDAP (7yrs+) 12/29/2018 Social History Tobacco Use Types Packs/Day Years Used Date Smoking Tobacco: Never Assessed Sex and Gender Information Value Date Recorded Sex Assigned at Not on file Gender Identity Not on file Sexual Orientation Not on file Plan of Treatment Not on file Care Teams Entertainer Or Variety Artist Relationship Specialty Start Date End Date Radha Tucker, CLINICAL DATA ANALYST-AUDIO ENGINEER [address] [place], [place] [id number] PCP - General 07/30/21
--- OUTSIDE RECORDS SUMMARY | 2024-05-02 01:15 | XMS_ITS | Encounter Summary ---
Author Organization [facility] Address Critical access hospital[address] [place] [address] Care Team Providers Care Machinist Job Setter Name Role Phone Isael Khalil MD Unavailable [phone] Tee Fajardo MD Unavailable Radha Tucker Primary Care Provider [phone] Encounter Details Date Type Department Care Team (Late st Contact Info) Description 05/11/2022 TelePharm Message Enc [facility] THREE [facility] [address] [place], [place] [id number] Yoly Mondragon, SANTOS Three [facility] [address] [place], [place] [id number] Pre-op clearance Social History Tobacco Use Types Packs/Day Years Used Date Smoking Tobacco: Never Smokeless Tobacco: Never Alcohol Use Standard Drinks/Week Comments No 0 (1 standard drink = 0.6 oz pur e alcohol) PHQ-2 Answer Date Recorded PHQ-2 Score - If the patient scores above 3, please move on to questions 3-9 0 02/04/2022 Comments No Sex and Gender Information Value Date Recorded Sex Assigned at Not on file Legal Sex Female 3:25 PM TOP CLOSER Gender Identity Female 03/31/2021 3:03 PM TOP CLOSER Sexual Orientation Straight 03/31/2021 3: 03 PM TOP CLOSER 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 No / Unsure 04/21/2022 7:21 AM TOP CLOSER documented as of this encounter Functional Status [...] Progress Notes * Yoly Mondragon NP - 05/17/2022 12:51 PM CST I see that. Shes adamant that we complete a form also. CLOSER * Yoly Mondragon NP - 05/17/2022 12:30 PM CST Is there a form for me to complete? CLOSER documented in this encounter Plan of Treatment Upcoming Encounters Date Type Department Care Team (Late st Contact Info) Description 05/07/2024 1:00 PM TOP CLOSER [facility] [address] [facility], [address] [place] [address] Radha Tucker APNP [address] [place] [address] Raj Barbour MD 3 [facility] [place] [address] 01/25/2025 9:40 AM TOP CLOSER [facility] [address] [facility] [place] [address] Nhan Garcia MD [address] [place] [address] [place] [address] [place] [address] 03/05/2025 9:00 AM TOP CLOSER Office Visit [facility] THREE [facility], [place] [address] [place] [address] Isael Khalil MD [facility]. [place] [address] [place] [address] documented as of this encounter Visit Diagnoses Not on filedocumented in this encounter Additional Health Concerns Assessment Noted Time PHQ-9 Depression Total Score: 6 02/05/20 22 11:44 AM TOP CLOSER documented as of this encounter Care Teams Machinist Job Setter Relationship Specialty Start Date End Date Radha Tucker APNP [address] [place] [address] PCP - General NURSE PRACTITIONER 12/30/20 Isael Khalil MD [facility]. [place] [address] [place] [address] [place] Motor Home Electrical Foreman CARDIOVASCULAR DISEASE 04/28/17 Tee Fajardo MD [address] [facility] [address] [place] [address] EP Motor Home Electrical Foreman CLINICAL CARDIAC ELECTROPHYSIOLOGY 08/30/18 documented as of this encounter
--- OUTSIDE RECORDS SUMMARY | 2024-05-02 01:15 | XMS_ITS | Encounter Summary ---
Author Organization [facility] Address [facility] [place] [address] Care Team Providers Care Graphite Mill Operator Name Role Phone Isael Khalil MD Unavailable [phone] Tee Fajardo MD Unavailable Yehuda Carrasco MD Primary Care Provider [phone] Radha Tucker Primary Care Provider [phone] Encounter Details Date Type Department Care Team (Late st Contact Info) Description 07/29/[address] [facility] - [place] [address] [place] [address] Aide Vieyra NP 5 [place] [address] RE: Question Social History Tobacco Use Types Packs/Day Years Used Date Smoking Tobacco: Never Smokeless Tobacco: Never Alcohol Use Standard Drinks/Week Comments No 0 (1 standard drink = 0.6 oz pur e alcohol) Comments No Sex and Gender Information Value Date Recorded Sex Assigned at Not on file Legal Sex Female 3:25 PM CALCINER OPERATOR HELPER Gender Identity Female 03/31/2021 3:03 PM CALCINER OPERATOR HELPER Sexual Orientation Straight 03/31/2021 3: 03 PM CALCINER OPERATOR HELPER Occupation Industry Job Start Date Job End [...] Assessment Author Status No 01/26/2019 8:56 AM CALCINER OPERATOR HELPER Activ e * RETIRED Are you blind or do you have serious difficulty seeing, even when wearing glasses? Answer Date of Assessment Author Status No 01/26/2019 8:56 AM CALCINER OPERATOR HELPER Activ e * Do you have serious [...] Huntley RN Active documented in this encounter Plan of Treatment Upcoming Encounters Date Type Department Care Team (Late st Contact Info) Description 05/07/2024 1:00 PM CALCINER OPERATOR HELPER [facility] [address], [address] [place] [address] Radha Tucker, LUCIO [address] [place] [address] Raj Barbour MD [address] [place] [address] 01/25/2025 9:40 AM CALCINER OPERATOR HELPER [facility] - [address] [place] [address] Nhan Garcia MD 3 [facility] [address] [place] [address] 03/05/2025 9:00 AM CALCINER OPERATOR HELPER Office Visit [facility] THREE [facility], [place] [address] [place] [address] Isael Khalil MD Three [facility]. [facility] [address] [place] [address] documented as of this encounter Visit Diagnoses Not on filedocumented in this encounter Additional Health Concerns Infection Onset Date Last Indicated Resolved Time COVID-19 Rule Out 08/06/2019 08/06/2019 08/08/2019 10:44 AM CDT COVID-19 Rule Out 02/29/2020 02/29/2020 03/01/2020 7:50 PM CALCINER OPERATOR HELPER COVID-19 Rule Out 03/19/2021 03/19/2021 03/19/2021 2:05 PM CALCINER OPERATOR HELPER COVID-19 Rule Out 03/19/2021 03/19/2021 03/21/2021 12:00 AM CALCINER OPERATOR HELPER COVID-19 Rule Out 12/01/2021 12/01/2021 12/01/2021 11:38 PM CDT documented as of this encounter Care Teams Graphite Mill Operator Relationship Specialty Start Date End Date Yehuda Carrasco MD Three [facility]. [facility] [address] [place] [address] PCP - General FAMILY PRACTICE 06/04/19 12/29/20 Radha Tucker APNP [address] [place] [address] PCP - General NURSE PRACTITIONER 12/30/20 Isael Khalil MD Three [facility]. [place] [address] [place] [address] Justice CARDIOVASCULAR DISEASE 04/28/17 Tee Fajardo MD Three [facility]. [place] [address] [place], [place] [address] EP Administrative Court Justice CLINICAL CARDIAC ELECTROPHYSIOLOGY 08/30/18 documented as of this encounter
--- OUTSIDE RECORDS SUMMARY | 2024-05-02 01:15 | XMS_ITS | Encounter Summary ---
Author Organization [facility] Address [facility] [place] [address] Care Team Providers Care Rivet Heater Name Role Phone Finley, Paul Miner DO Primary Care Provider [phone] Isael Khalil MD Unavailable [phone] Tee Fajardo MD Unavailable Yehuda Carrasco MD Primary Care Provider [phone] Radha Tucker Primary Care Provider [phone] Encounter Details Date Type Department Care Team (Latest Contact Info) Description 12/05/2017 Abstract [facility] Alondra Mccollum MD Social History Tobacco Use Types Packs/Day Years Used Date Smoking Tobacco: Never Smokeless Tobacco: Never Alcohol Use Standard Drinks/Week Comments No 0 (1 standard drink = 0.6 oz pur e alcohol) Comments No Sex and Gender Information Value Date Recorded Sex Assigned at Not on file Legal Sex Female 3:25 PM HAM SAWYER Gender Identity Female 03/31/2021 3:03 PM HAM SAWYER Sexual Orientation Straight 03/31/2021 3: 03 PM HAM SAWYER Occupation Industry Job Start Date Job End Date Not on file Not on file Not on file Not on file documented as of this encounter Plan of Treatment Upcoming Encounters Date Type Department Care Team (Late st Contact Info) Description 05/07/2024 1:00 PM HAM SAWYER Office Visit [facility] Multispecialty Care - [address], [address] [place] [address] Radha Tucker, APNP [address] [place] [address] Raj Barbour MD 3 [place] [address] 01/25/2025 9:40 AM HAM SAWYER Office Visit [facility] Multispecialty Care - [facility] 3 [facility]., [address] [place] [address] Nhan Garcia MD 3 [facility] [address] [place] [address] 03/05/2025 9:00 AM HAM SAWYER Office Visit [facility] [address] [facility], [place] [address] [place] [address] Isael Khalil MD Three [facility]. [place] [address] [place] [address] documented as of this encounter Visit Diagnoses Not on filedocumented in this encounter Additional Health Concerns Infection Onset Date Last Indicated Resolved Time COVID-19 Rule Out 08/06/2019 08/06/2019 08/08/2019 10:44 AM CDT COVID-19 Rule Out 02/29/2020 02/29/2020 03/01/2020 7:50 PM HAM SAWYER COVID-19 Rule Out 03/19/2021 03/19/2021 03/19/2021 2:05 PM HAM SAWYER COVID-19 Rule Out 03/19/2021 03/19/2021 03/21/2021 12:00 AM HAM SAWYER COVID-19 Rule Out 12/01/2021 12/01/2021 12/01/2021 11:38 PM CDT documented as of this encounter Care Teams Rivet Heater Relationship Specialty Start Date End Date Paul Finley DO PCP - General FAMILY PRACTICE 08/20/15 06/03/19 Yehuda Carrasco MD [facility]. [address] [address] PCP - General FAMILY PRACTICE 06/04/19 12/29/20 Radha Tucker APNP [address] [place] [address] PCP - General NURSE PRACTITIONER 12/30/20 Isael Khalil MD [facility]. [address] [phone] [place] Recreation Therapist CARDIOVASCULAR DISEASE 04/28/17 Tee Fajardo MD [facility]. [address] [phone] EP Recreation Therapist CLINICAL CARDIAC ELECTROPHYSIOLOGY 08/30/18 documented as of this encounter
--- OUTSIDE RECORDS SUMMARY | 2024-05-02 01:15 | XMS_ITS | Encounter Summary ---
Author Organization [facility] Address [address] [place] [address] Care Team Providers Care Children Teacher Name Role Phone Isael Khalil MD Unavailable [phone] Tee Fajardo MD Unavailable Radha Tucker Primary Care Provider [phone] Reason for Visit * Reason Onset Date Comments Question 02/23/2022 Results 02/23/2022 Encounter Details Date Type Department Care Team (Late st Contact Info) Description 02/23/2022 Vivoxt Message Enc [facility] Multispecialty Care - [facility] [address] [facility] [place] [address] Farzaneh Alejandre NP 3 [facility]. 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 No / Unsure 02/23/2022 8:43 AM TOWER WATCHMAN documented as of this encounter Functional Status [...] encounter Progress Notes * LUCIO Hunter - 02/24/2022 4:09 PM CST Thanks for letting me know R WATCHMAN * Farzaneh Alejandre NP - 02/24/2022 11:54 AM CST Patient contacted GI clinic to inform of CT scan she had on 02/23/2022. She also has a colonoscopy scheduled on 04/21/2022. Scan does reveal some probable mild diverticulitis. Pt has intermittent achy feeling in her LLQ and had diarrhea out of the blue x2. However she is back to having constipation again took Linzess on Tuesday and did not work all the way. Miralax PRN Forconstipation in addition to Linzess. Last antibiotics were in December for teeth cleaning. Pt notes she does not feel that she is having any worsening of symptoms than usual due to her chronic constipa tion. She does not feel like she needs an antibiotic at this time. I did tell her however if she starts having any worsening of symptoms to let me know and I will prescribe Augmentin for her. Denies any fevers or nausea or worsening of abdominal pain. She did tell her PCP that I would manage the diverticulitis if it worsens in any way. 02/22/2022 CT scan of abdomen and pelvis with contrast ordered by Radha Tucker APRN IMPRESSION: 1. There is colonic diverticulosis. Probable mild/early diverticulitis at the descending sigmoid junction. 2. No evidence of perforation or abscess formation. 3. Mild hepatic steatosis. R WATCHMAN * Holly Garcia - 02/24/2022 8:36 AM CSTFrom: Natalie Roman To: Farzaneh Alejandre Sent: 02/23/2022 10:11 PM TOWER WATCHMAN Subject: CT if abdomen Farzaneh: I asked Heladio Tucker to order the CT scan of the abdomen as you suggested and it was done yesterday at [facility] [place] . The results did show I have probable early/mild diverticulitis. I???m contacting you since it is GIrelated and have established with your office. I did receive a call f rom your office and my colonoscopy was rescheduled from March 26 to [address] Sosa will be out of town. I???m guessing it???s okay to wait that long. Please let me know what you think. Thanks! R WATCHMAN documented in this encounter Plan of Treatment Upcoming Encounters Date Type Department Care Team ([facility] Contact Info) Description 05/07/2024 1:00 PM TOWER WATCHMAN Office Visit [facility] - [facility] [address] [facility], [address] [place] [address] Radha Tucker APNP [address] [place] [address] Raj Barbour MD 3 [facility] [place] [address] 01/25/2025 9:40 AM TOWER WATCHMAN [facility] [address] [facility] [place] [address] Nhan Garcia MD [address] [place] [address] [place] [address] [place] [address] 03/05/2025 9:00 AM TOWER WATCHMAN [facility] [address] [place] [address] Isael Khalil MD [facility]. [place] [address] [place] [address] documented as of this encounter Visit Diagnoses Not on filedocumented in this encounter Additional Health Concerns Assessment Noted Time PHQ-9 Depression Total Score: 6 02/05/20 22 11:44 AM TOWER WATCHMAN documented as of this encounter Care Teams Children Teacher Relationship Specialty Start Date End Date Radha Tucker APNP [address] [place] [address] PCP - General NURSE PRACTITIONER 12/30/20 Isael Khalil MD [facility]. [place] [address] [place] [address] [place] Vegetable Specker CARDIOVASCULAR DISEASE 04/28/17 Tee Fajardo MD [facility] [address] [facility] [address] [place] [address] EP Vegetable Specker CLINICAL CARDIAC ELECTROPHYSIOLOGY 08/30/18 documented as of this encounter
--- OUTSIDE RECORDS SUMMARY | 2024-05-02 01:15 | XMS_ITS | Encounter Summary ---
Author Organization [facility] Address [facility] [place] [address] Care Team Providers Care Truck Driver Flatbed Name Role Phone Isael Khalil MD Unavailable [phone] Tee Fajardo MD Unavailable Radha Tucker Primary Care Provider [phone] Encounter Details Date Type Department Care Team (Late st Contact Info) Description 05/11/2022 Elo Sistemas Eletrônicoshart Message Enc [facility] Family & Internal Medicine [facility] [address] [place] [address] Radha Tucker APNP [address] [place] [address] Pre-Op Clearance Social History Tobacco Use Types Packs/Day Years [...] on file Legal Sex Female 3:25 PM HEALTHCARE ANALYST Gender Identity Female 03/31/2021 3:03 PM HEALTHCARE ANALYST Sexual Orientation Straight 03/31/2021 3: 03 PM HEALTHCARE ANALYST 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 No / Unsure 04/21/2022 7:21 AM HEALTHCARE ANALYST documented as of this encounter Functional Status [...] st Contact Info) Description 05/07/2024 1:00 PM HEALTHCARE ANALYST Office Visit [facility] Multispecialty Care - [address], [address] [place] [address] Radha Tucker, LUCIO [address] [place] [address] Raj Barbour MD [address] [place] [address] 01/25/2025 9:40 AM HEALTHCARE ANALYST Office Visit [facility] Care - [facility] [address] [facility] [place] [address] Nhan Garcia MD [address] [facility] [address] [address] [place] [address] 03/05/2025 9:00 AM HEALTHCARE ANALYST Office Visit [facility] [address] [facility] [address], [place] [place] [address] Isael Khalil MD Three [facility]. [place] [address] [place] [address] documented as of this encounter Visit Diagnoses Not on filedocumented in this encounter Additional Health Concerns Assessment Noted Time PHQ-9 Depression Total Score: 6 02/05/20 22 11:44 AM HEALTHCARE ANALYST documented as of this encounter Care Teams Truck Driver Flatbed Relationship Specialty Start Date End Date Radha Tucker APNP [address] [place] [address] PCP - General NURSE PRACTITIONER 12/30/20 Isael Khalil MD Three [facility]. [place] [address] [place] [address] Warren Maintenance Clerk CARDIOVASCULAR DISEASE 04/28/17 Tee Fajardo MD Three [facility]. [place] [address] [place], [place] [address] EP Maintenance Clerk CLINICAL CARDIAC ELECTROPHYSIOLOGY 08/30/18 documented as of this encounter
--- OUTSIDE RECORDS SUMMARY | 2024-05-02 01:15 | XMS_ITS | Patient Health Summary ---
Author Organization [facility] Address [address] [facility] [place] [address] Care Team Providers Care Verifying Specialist Name Role Phone Radha Tucker Primary Care Provider Note from [facility],non-owned Affiliates and Associated Physician Practices is amultiple site organization consisting of ambulatory clinics and hospital sitesin [place], [place], [place] and [place]. This disclosure is being madepursuant to the Care Everywhere program and may not contain all information available regarding this patient. Last updated 17.[facility] Immunizations * INFLUENZA VACCINE, QUADR. (FLUZONE; FLULAVAL; FLUARIX; AFLURIA QUADRIVALENT; 6MO+), 0.5 ML (IIV4)(Given 12/29/2018) * TDAP (7yrs+)(Given 12/29/2018) Social History Tobacco Use Types Packs/Day Years Used Date Smoking Tobacco: Never Assessed Sex and Gender Information Value Date Recorded Sex Assigned at Not on file Gender Identity Not on file Sexual Orientation Not on file Care Teams Verifying Specialist Relationship Specialty Start Date End Date Radha Tucker, NEO [address] [place] [address] PCP - General 07/30/21
--- OUTSIDE RECORDS SUMMARY | 2024-05-02 01:15 | XMS_ITS | Encounter Summary ---
Author Organization [facility] Address [facility] [place] [address] Care Team Providers Care Peanut Farmer Name Role Phone Isael Khalil MD Unavailable [phone] Tee Fajardo MD Unavailable Radha Tucker Primary Care Provider [phone] Encounter Details Date Type Department Care Team (Late st Contact Info) Description 02/23/2022 Tianshenghart Message Enc [facility] Medical Group Family & Internal Medicine [facility] [address] [place] [address] Radha Tucker APNP [address] [place] [address] CT Scan Social History Tobacco Use Types Packs/Day Years [...] on file Legal Sex Female 3:25 PM MANAGING DIRECTOR Gender Identity Female 03/31/2021 3:03 PM MANAGING DIRECTOR Sexual Orientation Straight 03/31/2021 3: 03 PM MANAGING DIRECTOR 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 No / Unsure 02/23/2022 8:43 AM MANAGING DIRECTOR documented as of this encounter Functional Status [...] st Contact Info) Description 05/07/2024 1:00 PM MANAGING DIRECTOR Office Visit [facility] Multispecialty Care - [address], [address] [place] [address] Radha Tucker, LUCIO [address] [place] [address] Raj Barbour MD [address] [place] [address] 01/25/2025 9:40 AM MANAGING DIRECTOR Office Visit [facility] Mult[facility]pecialty Care - [facility] [address] [facility] [address] [place] [address] Nhan Garcia MD [facility] [address] [place] [address] 03/05/2025 9:00 AM MANAGING DIRECTOR Office Visit [place] [facility] [facility] [place] [place] [address] Isael Khalil MD Three [facility]. [place] [address] [place] [address] documented as of this encounter Visit Diagnoses Not on filedocumented in this encounter Additional Health Concerns Assessment Noted Time PHQ-9 Depression Total Score: 6 02/05/20 22 11:44 AM MANAGING DIRECTOR documented as of this encounter Care Teams Peanut Farmer Relationship Specialty Start Date End Date Radha Tucker APNP [address] [place] [address] PCP - General NURSE PRACTITIONER 12/30/20 Isael Khalil MD Three [facility]. [place] [address] [place] [address] [place] Medicaid Eligibility Specialist CARDIOVASCULAR DISEASE 04/28/17 Tee Fajardo MD Three [facility]. [place] [address] [place], [place] [address] EP Medicaid Eligibility Specialist CLINICAL CARDIAC ELECTROPHYSIOLOGY 08/30/18 documented as of this encounter
--- OUTSIDE RECORDS SUMMARY | 2024-05-02 01:15 | XMS_ITS | Encounter Summary ---
Author Organization [facility] Address [facility] [place] [address] Care Team Providers Care Sql Ssrs Developer Name Role Phone Isael Khalil MD Unavailable [phone] Tee Fajardo MD Unavailable Yehuda Carrasco MD Primary Care Provider [phone] Radha Tucker Primary Care Provider [phone] Encounter Details Date Type Department Care Team (Late st Contact Info) Description 11/15/2019 [facility] Message Enc [facility] Medical Group Family Medicine - [place] [address] [place] [address] Aide Vieyra NP [address] [place] [address] RE: Other Social History Tobacco Use Types Packs/Day Years Used Date Smoking Tobacco: Never Smokeless Tobacco: Never Alcohol Use Standard Drinks/Week Comments No 0 (1 standard drink = 0.6 oz pur e alcohol) Comments No Sex and Gender Information Value Date Recorded Sex Assigned at Not on file Legal Sex Female 3:25 PM CLIMATE CHANGE ANALYST Gender Identity Female 03/31/2021 3:03 PM CLIMATE CHANGE ANALYST Sexual Orientation Straight 03/31/2021 3: 03 PM CLIMATE CHANGE ANALYST Occupation Industry Job Start Date Job End Date Not on file Not on file Not on file Not on file COVID-19 Exposure Response Date Recorded In the last month, have you been in contact with someone who was confirmed or suspected to have Coronavirus / COVID-19? No / Unsure 11/15/2019 1:42 PM CDT documented as of this encounter [...] Progress Notes * Henrique Wu RN - 11/15/2019 9:12 AM CDT Please advise. Thanks! documented in this encounter Plan of Treatment Upcoming Encounters Date Type Department Care Team (Late st Contact Info) Description 05/07/2024 1:00 PM CLIMATE CHANGE ANALYST Office Visit [facility] Medical Group Multispecialty Care - [facility] [address] [facility], [address] [place] [phone] Radha Tucker APNP [address] [place] [address] Raj Barbour MD [address] [place] [address] 01/25/2025 9:40 AM CLIMATE CHANGE ANALYST Office Visit [facility] Medical Group Multispecialty Care - [facility] [address] [facility] [place] [address] Nhan Garcia MD [address] [facility] [address] [place] [address] 03/05/2025 9:00 AM CLIMATE CHANGE ANALYST Office Visit [facility] THREE [facility], [address] [place] [address] Isael Khalil MD Three [facility]. [address] [place] [address] documented as of this encounter Visit Diagnoses Not on filedocumented in this encounter Additional Health Concerns Infection Onset Date Last Indicated Resolved Time COVID-19 Rule Out 02/29/2020 02/29/2020 03/01/2020 7:50 PM CLIMATE CHANGE ANALYST COVID-19 Rule Out 03/19/2021 03/19/2021 03/19/2021 2:05 PM CLIMATE CHANGE ANALYST COVID-19 Rule Out 03/19/2021 03/19/2021 03/21/2021 12:00 AM CLIMATE CHANGE ANALYST COVID-19 Rule Out 12/01/2021 12/01/2021 12/01/2021 11:38 PM CDT documented as of this encounter Care Teams Sql Ssrs Developer Relationship Specialty Start Date End Date Yehuda Carrasco MD Three [facility]. [address] [place] [address] PCP - General FAMILY PRACTICE 06/04/19 12/29/20 Radha Tucker APNP [address] [place] [phone] PCP - General NURSE PRACTITIONER 12/30/20 Isael Khalil MD [facility]. [address] [address] [place] Manager Of Radiology CARDIOVASCULAR DISEASE 04/28/17 Tee Fajardo MD [facility]. [address] [phone] EP Manager Of Radiology CLINICAL CARDIAC ELECTROPHYSIOLOGY 08/30/18 documented as of this encounter
--- OUTSIDE RECORDS SUMMARY | 2024-05-02 01:15 | XMS_ITS | Encounter Summary ---
Author Organization [facility] Address [facility] [place] [address] Care Team Providers Care Plumber Assistant Name Role Phone Finley, Paul Miner DO Primary Care Provider + [phone] Jluis Landry MD Unavailable Unavailable Isael Khalil MD Unavailable [phone] Tee Fajardo MD Unavailable Yehuda Carrasco MD Primary Care Provider [phone] Radha Tucker Primary Care Provider [phone] Encounter Details Date Type Department Care Team (Late st Contact Info) Description 11/23/2016 Abstract [facility] AT [address] [address] Diamond Edmondson MA Social History Tobacco Use Types Packs/Day Years Used Date Smoking Tobacco: Never Smokeless Tobacco: Never Comments Unknown Sex and Gender Information Value Date Recorded Sex Assigned at Not on file Legal Sex Female 3:25 PM CREATIVE WRITER Gender Identity Female 03/31/2021 3:03 PM CREATIVE WRITER Sexual Orientation Straight 03/31/2021 3: 03 PM CREATIVE WRITER documented as of this encounter Plan of Treatment Upcoming Encounters Date Type Department Care Team (Late st Contact Info) Description 05/07/2024 1:00 PM CREATIVE WRITER Office Visit [facility] Medical Group Multispecialty Care - [address], [address] [place] [phone] Radha Tucker APNP [address] [place] [address] Raj Barbour MD 3 [facility] [place] [address] 01/25/2025 9:40 AM CREATIVE WRITER Office Visit [facility] Medical Group Multispecialty Care - [facility] [address] [facility] [place] [address] Nhan Garcia MD 3 [facility] [address] [place] [address] 03/05/2025 9:00 AM CREATIVE WRITER Office Visit [facility] THREE [facility], [address] [place] [address] Isael Khalil MD Three [facility]. [address] [place] [address] documented as of this encounter Procedures Procedure Name Priority Date/Time Associated Diagnosis Comments COMPREHENSIVE METABOLIC PANEL Routine 10/21/2016 HEMOGLOBIN, GLYCOSYLATED Routine 10/21/2016 THYROID STIM HORMONE TSH Routine 10/21/2016 documented in this encounter Results * THYROID STIM HORMONE, TSH (10/21/2016) TSH 3.39 10/21/2016 [facility] Final Result * HEMOGLOBIN, GLYCOSYLATED (10/21/2016) HGB A1C 5.4 10/21/2016 us [facility] Final Result * COMPREHENSIVE METABOLIC PANEL (10/21/2016) SODIUM S/P/B 142 POTASSIUM S/P/B 4.5 CO2 28 CHLORIDE S/P/B 102 GLUCOSE 108 mg/dL CALCIUM S/P/B 10.3 BUN 17 CREATININE S/P/B 0.95 0.5 - 1.0 EGFR AFR. AMER. >60 <=90 EGFR NON-AFR. AMER. >60 <=90 ALKALINE PHOSPHATASE S/P/B 98 ALT 41 AST 31 BILIRUBIN TOTAL S/P/B 0.8 ALBUMIN S/P/B 4.5 3.5 - 5.0 TOTAL PROTEIN S/P/B 7.0 GLOBULIN 2.5 10/21/2016 us [facility] Edited Resul t - Final documented in this encounter Visit Diagnoses Not on filedocumented in this encounter Additional Health Concerns Infection Onset Date Last Indicated Resolved Time COVID-19 Rule Out 08/06/2019 08/06/2019 08/08/2019 10:44 AM CDT COVID-19 Rule Out 02/29/2020 02/29/2020 03/01/2020 7:50 PM CREATIVE WRITER COVID-19 Rule Out 03/19/2021 03/19/2021 03/19/2021 2:05 PM CREATIVE WRITER COVID-19 Rule Out 03/19/2021 03/19/2021 03/21/2021 12:00 AM CREATIVE WRITER COVID-19 Rule Out 12/01/2021 12/01/2021 12/01/2021 11:38 PM CDT documented as of this encounter Care Teams Plumber Assistant Relationship Specialty Start Date End Date Paul Finley DO PCP - General FAMILY PRACTICE 08/20/15 06/03/19 Yehuda Carrasco MD [address] [address] PCP - General FAMILY PRACTICE 06/04/19 12/29/20 Radha Tucker APNP [address] [place] [id number] PCP - General NURSE PRACTITIONER 12/30/20 Jluis Landry MD [place] [facility] B[facility] Manager CARDIOVASCULAR DISEASE 08/20/15 Isael Khalil MD Three [facility]. [address] [place] [address] [place] [facility] Billing Manager CARDIOVASCULAR DISEASE 04/28/17 Tee Fajardo MD Three [facility]. [address] [place] [phone] EP Medical Billing Manager CLINICAL CARDIAC ELECTROPHYSIOLOGY 08/30/18 documented as of this encounter
--- OUTSIDE RECORDS SUMMARY | 2024-05-02 01:15 | XMS_ITS | Encounter Summary ---
Author Organization [facility] Address [facility] [place] [address] Care Team Providers Care Tire Wrapper Name Role Phone Finley, Paul Miner DO Primary Care Provider + [phone] Jluis Landry MD Unavailable Unavailable Isael Khalil MD Unavailable [phone] Tee Fajardo MD Unavailable Yehuda Carrasco MD Primary Care Provider [phone] Radha Tucker Primary Care Provider [phone] Encounter Details Date Type Department Care Team (Late st Contact Info) Description 01/23/2017 RX Orders Only [facility] [place] [address] Gabe Brown, PharmD, [place] [address] Social History Tobacco Use Types Packs/Day Years Used Date Smoking Tobacco: Never Smokeless Tobacco: Never Comments No Sex and Gender Information Value Date Recorded Sex Assigned at Not on file Legal Sex Female 3:25 PM DRESS CAP MAKER Gender Identity Female 03/31/2021 3:03 PM DRESS CAP MAKER Sexual Orientation Straight 03/31/2021 3: 03 PM DRESS CAP MAKER documented as of this encounter Plan of Treatment Upcoming Encounters Date Type Department Care Team (Late st Contact Info) Description 05/07/2024 1:00 PM DRESS CAP MAKER Office Visit [facility] Medical Group Multispecialty Care - [facility] [address] [facility], [address] [place] [phone] Radha Tucker, APNP [address] [place] [address] Raj Barbour MD [address] [place] [address] 01/25/2025 9:40 AM DRESS CAP MAKER Office Visit [facility] Medical Group Multispecialty Care - [facility] [address] [facility] [place] [phone] Nhan Garcia MD [address] [facility] [address] [place] [address] 03/05/2025 9:00 AM DRESS CAP MAKER Office Visit [facility] THREE [facility], [address] [place] [address] Isael Khalil MD Three [facility]. [address] [place] [address] documented as of this encounter Visit Diagnoses Not on filedocumented in this encounter Additional Health Concerns Infection Onset Date Last Indicated Resolved Time COVID-19 Rule Out 08/06/2019 08/06/2019 08/08/2019 10:44 AM CDT COVID-19 Rule Out 02/29/2020 02/29/2020 03/01/2020 7:50 PM DRESS CAP MAKER COVID-19 Rule Out 03/19/2021 03/19/2021 03/19/2021 2:05 PM DRESS CAP MAKER COVID-19 Rule Out 03/19/2021 03/19/2021 03/21/2021 12:00 AM DRESS CAP MAKER COVID-19 Rule Out 12/01/2021 12/01/2021 12/01/2021 11:38 PM CDT documented as of this encounter Care Teams Tire Wrapper Relationship Specialty Start Date End Date Paul Finley DO PCP - General FAMILY PRACTICE 08/20/15 06/03/19 Yehuda Carrasco MD [facility]. [facility] [address] [place] [id number] PCP - General FAMILY PRACTICE 06/04/19 12/29/20 Radha Tucker APNP [address] [place] [id number] PCP - General NURSE PRACTITIONER 12/30/20 Jluis Landry MD [place] Anesthesia Assistant CARDIOVASCULAR DISEASE 08/20/15 Isael Khalil MD [facility]. [facility] [address] [place] [id number] [place] Anesthesia Assistant CARDIOVASCULAR DISEASE 04/28/17 Tee Fajardo MD [facility]. [facility] [address] [place] [id number] EP Anesthesia Assistant CLINICAL CARDIAC ELECTROPHYSIOLOGY 08/30/18 documented as of this encounter
--- OUTSIDE RECORDS SUMMARY | 2024-05-02 01:15 | XMS_ITS | Clinical Summary ---
Author Organization [facility] Address [address], [facility] [address] [place] [address] Phone Care Team Providers Care Instructor [employer]ence [employer] Name Role Phone Unavailable Primary Care Provider Unavailabl e Allergies Active Allergy Reactions Criticality Noted Date Comments Cefuroxime Rash Low 05/14/2016 Gemifloxacin Rash 07/17/2018 Quinolones Rash,Unknown Low 05/14/2016 Medications ramipril (ALTACE) 10 MG Capsule 10 mg. 02/11/2012 Active metoprolol Succinate (TOPROL XL) 25 MG TABLET SR 24 HR 25 mg. 02/11/2012 Active fluticasone (FLONASE) 50 MCG/ACT Suspension 1 G[place]ke by Nasal route. 05/27/2016 Active amLODIPine (NORVASC) 2.5 MG Tablet Take 2.5 mg by mouth daily. 3 06/16/2018 Active omeprazole (PRILOSEC) 20 MG CAPSULE DELAYED RELEASE Take 20 mg by mouth. 05/23/2018 Active Aspirin 81 MG Tablet 81 mg. 12/26/2012 Active Family History Medical History Relation Name Comments Heart Disease Father Colon Cancer Mother Relation Name Status Comments Father Mother Social History Tobacco Use Types Packs/Day Years Used Date Smoking Tobacco: Never Smokeless Tobacco: Never Alcohol Use Standard Drinks/Week Comments Never 0 (1 standard drink = 0.6 oz pur e alcohol) AUDIT-C Answer Date Recorded Frequency of Alcohol Consumption Never 07/17/2018 Average Number of Drinks Not on file 019 Frequency of Binge Drinking Not on file 06/20 PHQ-2 Answer Date Recorded PHQ-2 Score 0 12/02/2018 Comments Unknown Sex and Gender Information Value Date Recorded Sex Assigned at Not on file Legal Sex Female 10:20 AM CDT Gender Identity Not on file Sexual Orientation Not on file Last Filed Vital Signs Vital Sign Reading Time Taken Comments Blood Pressure 120/80 07/31/2018 2:39 PM CDT Pulse 71 07/31/2018 2:39 PM CDT Temperature 36.7 C (98 F) 07/31/2018 2:39 PM CDT Respiratory Rate 18 07/17/2018 2:30 PM CDT Oxygen Saturation 96% 07/31/2018 2:39 PM CDT Inhaled Oxygen Concentration - - Weight 104.3 kg (230 lb) 07/31/2018 2:39 PM CDT Height 170.2 cm (5' 7 ) 07/31/2018 2:39 PM CDT Body Mass Index 36.02 07/31/2018 2:39 PM CDT Plan of Treatment Health Maintenance Due Date Last Done Comments DEXA Bone Density 1955 Hepatitis C Virus (HCV) Screening 1955 TdaP Immunization 1955 Colonoscopy 02/09/2000 Colorectal Cancer Screening 02/09/2000 Cologuard 2005 Immunochemical Fecal Occult Blood 2005 Mammogram 2005 Pneumococcal Immunization (5 0+ years) (1 of 1 - PCV) 2005 Zoster Immunization (1 of 2) 2005 Influenza Immunization (#1) 2023 SARS-COV-2 Immunization (1 - 2023- season) 2023 Respiratory Syncytial Virus (RSV) Immunization (Adult) (1 - 1-dose 75+ series) 2030 Hepatitis B Immunization Aged Out No longer eligible based on patient's age to complete this topic Meningococcal Immunization (ACWY) Aged Out No longer eligible based on patient's age to complete this topic Rotavirus Immunization Aged Out No lo nger eligible based on patient's age to complete this topic Insurance [employer] [facility] [employer]
--- OUTSIDE RECORDS SUMMARY | 2024-05-02 01:15 | XMS_ITS | Encounter Summary ---
Author Organization [facility] Address [facility] [place] [address] Care Team Providers Care Assistant Hairstylist Name Role Phone Isael Khalil MD Unavailable [phone] Tee Fajardo MD Unavailable Yehuda Carrasco MD Primary Care Provider [phone] Radha Tucker Primary Care Provider [phone] Encounter Details Date Type Department Care Team (Late st Contact Info) Description 08/06/2019 Prep for Procedure [facility] Pre-Admission Testing [place], [place] [id number] Vincent Villalobos MD 3 [place], [place] [id number] Social History Tobacco Use Types Packs/Day Years Used Date Smoking Tobacco: Never Smokeless Tobacco: Never Alcohol Use Standard Drinks/Week Comments No 0 (1 standard drink = 0.6 oz pur e alcohol) Comments No Sex and Gender Information Value Date Recorded Sex Assigned at Not on file Legal Sex Female 3:25 PM LEAN LEADER Gender Identity Female 03/31/2021 3:03 PM LEAN LEADER Sexual Orientation Straight 03/31/2021 3: 03 PM LEAN LEADER Occupation Industry Job Start Date Job End Date Not on file Not on file Not on file Not on file COVID-19 Exposure Response Date Recorded In the last month, have you been in contact with someone who was confirmed or suspected to have Coronavirus / COVID-19? No / Unsure 08/09/2019 5:28 AM CDT documented as of this encounter Functional Status * Question Answer Date of Assessment Author Status Do you have serious difficulty walking or climbing stairs? No 08/09/2019 2:57 PM CDT Kayleigh Pickens RN A ctive * Question Answer Date of Assessment Author Status Do you have difficulty dressing or bathing? No 08/09/2019 2:57 PM BELLET Kayleigh Pickens RN Active Because of a physical, mental, or emotional condition, do you have difficulty doing errands alone such as visiting a doctor's office or shopping? No 08/09/2019 2:57 PM BELLET Kayleigh Pickens RN Ac tive * RETIRED Are you deaf or do you have serious difficulty hearing Answer Date of Assessment Author Status No 01/26/2019 8:56 AM LEAN LEADER Activ e * RETIRED Are you blind or do you have serious difficulty seeing, even when wearing glasses? Answer Date of Assessment Author Status No 01/26/2019 8:56 AM LEAN LEADER Activ e * Do you have serious [...] as of this encounter Mental Status * Question Answer Entry Date Author Status Because of a physical, mental, or emotional condition, do you have serious difficulty concentrating, remembering, or making decisions? No 08/09/2019 2:57 PM Kayleigh Bradshaw RN Active * Because of a physical, mental, or emotional condition, do you have serious difficulty concentrating, remembering, or making decisions? Answer Entry Date Author Status No 01/26/2019 8:56 AM Rogers Huntley RN Active documented in this encounter Plan of Treatment Upcoming Encounters Date Type Department Care Team (Late st Contact Info) Description 05/07/2024 1:00 PM LEAN LEADER [facility] 3 [facility], [address] [place] [phone] Radha Tucker, APNP [address] [place] [address] Raj Barbour MD 3 [facility] [place] [address] 01/25/2025 9:40 AM LEAN LEADER Office Visit [facility] 3 [facility] [address] [place] [phone] Nhan Garcia MD 3 [facility] [address] [place] [address] 03/05/2025 9:00 AM LEAN LEADER Office Visit [facility] THREE [facility], [address] [place] [address] Isael Khalil MD [facility]. [address] [place] [address] documented as of this encounter Results * TYPE & SCREEN (08/09/2019 5:38 AM CDT) ABO/RH O NEGATIVE 08/09/2019 6:54 AM CDT [facility] ANTIBODY SCREEN NEGATIVE 08/09/2019 6:54 AM CDT [facility] SAMPLE EXPIRATION 08/12/2019,2 359 08/09/2019 6:54 AM CDT [facility] 08/09/2019 5:38 AM CDT us Vincent Villalobos MD BLOOD BANK TEST ORDERABLES Final Result [facility] 3 [place] [address], [place] [phone] * PTT, PARTIAL THROMBOPLASTIN TIME (08/09/2019 5:38 AM CDT) PTT 32.2 25.5 - 37.6 SEC 08/09/2019 6:17 AM CDT [facility] 08/09/2019 5:38 AM CDT us Vincent Villalobos MD LABORATORY Final Resul t Performing Organization Address City/[facility]/ZIP Co de Phone Number [facility] 3 [place] [address], [place] [phone] * (ABNORMAL) CBC W/DIFF AUTOMATED (08/09/2019 5:38 AM CDT) WBC 7.4 4.5 - 11.0 x10'3/uL 08/09/2019 5:55 AM CDT [facility] RBC 4.96 4.20 - 5.40 x10'6/uL 08/09/2019 5:55 AM CDT [facility] HGB 15.1 12.0 - 16.0 G/DL 08/09/2019 5:55 AM CDT [facility] HCT 42.9 38.0 - 48.0 % 08/09/2019 5:55 AM CDT [facility] MCV 86.5 81.0 - 99.0 FL 08/09/2019 5:55 AM CDT [facility] MCH 30.4 27.0 - 31.0 PG 08/09/2019 5:55 AM CDT [facility] MCHC 35.2 32.0 - 36.0 G/DL 08/09/2019 5:55 AM CDT [facility] RDW 12.1 11.5 - 14.5 % 08/09/2019 5:55 AM CDT [facility] PLT 163 130 - 400 x10'3/uL 08/09/2019 5:55 AM CDT [facility] MPV 11.7 9.3 - 12.2 FL 08/09/2019 5:55 AM CDT [facility] DIFFERENTIAL TYPE AUTOMATED DIFFERENTIAL 08/09/2019 5:55 AM CDT [facility] NEUTROPHILS % 62.4 % 08/09/2019 5:55 AM CDT [facility] LYMPHOCYTES % 23.7 % 08/09/2019 5:55 AM CDT [facility] MONOCYTES % 7.7 % 08/09/2019 5:55 AM CDT [facility] EOSINOPHILS 4.6 % 08/09/2019 5:55 AM CDT [facility] BASOPHILS 1.2 % 08/09/2019 5:55 AM CDT [facility] IMMATURE GRANS % 0.4 % 08/09/19 20 5:55 AM CDT [facility] ABS. NEUTROPHILS TOTAL 4.61 1.80 - 7.70 x10'3/uL 08/09/2019 5:55 AM CDT [facility] ABS. LYMPHOCYTES 1.75 1.00 - 4.80 x10'3/uL 08/09/2019 5:55 AM CDT [facility] ABS. MONOCYTES 0.57 0.24 - 0.86 x10'3/uL 08/09/2019 5:55 AM CDT [facility] ABS. EOSINOPHILS 0.34 0.04 - 0.36 x10'3/uL 08/09/2019 5:55 AM CDT [facility] ABS. BASOPHILS 0.09(H) 0.01 - 0.08 x10'3/uL 08/09/2019 5:55 AM CDT [facility] ABS. IMMATURE GRANULOCYTES 0.03 0.00 - 0.49 x10'3/uL 08/09/2019 5:55 AM CDT [facility] 08/09/2019 5:38 AM CDT us Vincent Villalobos MD LABORATORY Final Resul t Performing Organization Address [facility]/ZIP Co de Phone Number [facility] [address] [place] [address], [place] [phone] * MRSA SCREENING (08/09/2019 5:38 AM CDT) SPEC DESCRIPTION NASAL 08/09/2019 5:29 AM CDT [facility] SPECIAL REQUESTS NO SPECIAL REQUEST 08/09/2019 5:29 AM CDT [facility] CULTURE RESULT NO METHICILLIN RESISTANT STAPH AUREUS ISOLATED 08/10/2019 7:19 AM CDT [facility] SPECIMEN FROM INTERNAL NOSE / Unknown 08/09/2019 5:38 AM CDT 08/09/2019 5:46 AM CDT us Vincent Villalobos MD MICROBIOLOGY - [facility] Final Result [facility] [address] [place] [address], [place] [phone] * (ABNORMAL) PROTIME/INR, VENOUS (08/09/2019 5:38 AM CDT) PROTIME 12.3(H) 9.6 - 12.2 SEC 08/09/2019 6:17 AM CDT [facility] INR 1.1 08/09/2019 6:17 AM CDT [facility] Comment: Recommended INR Therapeutic Goals: 2.0-3.0 Routine Therapy 2.5-3.5 Mechanical Prosthetic Valves (High Risk) 3.0-4.0 Acute KS (to prevent Systemic Embolism) The INR is used only for patients on stable oral anticoagulant therapy. It makes no significant contribution to the diagnosis or treatment of patients whose Protime is prolonged for other reasons. 08/09/2019 5:38 AM CDT us Vincent Villalobos MD LABORATORY Final Resul t [facility] [address] [place] [address], [place] [phone] * (ABNORMAL) BASIC METABOLIC PANEL (08/09/2019 5:38 AM CDT) GLUCOSE 110(H) 70 - 99 MG/DL 08/09/2019 6:13 AM CDT [facility] BUN 14 7 - 18 MG/DL 08/09/2019 6:13 AM CDT [facility] CREATININE S/P/B 1.08(H) 0.55 - 1.02 MG/DL 08/09/2019 6:13 AM CDT [facility] SODIUM S/P/B 141 136 - 145 MMOL/L 08/09/2019 6:13 AM CDT [facility] POTASSIUM S/P/B 3.8 3.5 - 5.1 MMOL/L 08/09/2019 6:13 AM CDT [facility] CHLORIDE S/P/B 110(H) 100 - 108 MMOL/L 08/09/2019 6:13 AM CDT [facility] CO2 26.5 21 - 32 MMOL/L 08/09/2019 6:13 AM CDT [facility] CALCIUM S/P/B 9.0 8.5 - 10.1 MG/DL 08/09/2019 6:13 AM CDT [facility] ANION GAP 4.5(L) 5 - 15 MMOL/L 08/09/2019 6:13 AM CDT [facility] BUN CREATININE RATIO 13.0 6 - 26 08/09/2019 6:13 AM CDT [facility] EGFR NON-AFR. AMER. 54(L) >90 ML/MIN/1.7 3 M2 08/09/2019 6:13 AM CDT [facility] EGFR AFR. AMER. 63(L) >90 ML/MIN/1.7 3 M2 08/09/2019 6:13 AM CDT [facility] Comment: NOTE: eGFR is not calculated for patients <18 years of age. This is an estimated GFR (CKD EPI) and should not be used for calculating drug doses. 08/09/2019 5:38 AM CDT us Vincent Villalobos MD LABORATORY Final Resul t [facility] [address] [place] [address], [place] [phone] * PRE-SURGICAL/PRE-PROCEDURE CORONAVIRUS (COVID 19) (08/06/2019 1:00 PM CDT) CORONAVIRUS SARS COV 2 PCR (RESP) NOT DETECTED NOT DETECTED 08/08/2019 10:44 AM CDT [email or web address] [facility] Comment: A Not Detected (negative) test result for this test means that SARS- CoV-2 RNA was not present in the specimen above the limit of detection. A negative result does not rule out the possibility of COVID-19 and should not be used as the sole basis for treatment or patient management decisions. If COVID-19 is still suspected, based on exposure history together with other clinical findings, re-testing should be considered in consultation with public health authorities. Laboratory test results should always be considered in the context of clinical observations and epidemiological data in making a final diagnosis and patient management decisions. Please review the Fact Sheets and FDA authorized labeling available for health care providers and patients using the following websites: https://www.[employer]/home/Covid-19/HCP/[employer]/fact- sheet.html https://www.[employer]/home/Covid-19/Patients/ [employer]/fact-sheet.html This test has been authorized by the FDA under an Emergency Use Authorization (EUA) for use by authorized laboratories. Due to the current public health emergency, [employer] is receiving a high volume of samples from a wide variety of swabs and media for COVID-19 testing. In order to serve patients during this public health crisis, samples from appropriate clinical sources are being tested. Negative test results derived from specimens received in non-commercially manufactured viral collection and transport media, or in media and sample collection kits not yet authorized by FDA for COVID-19 testing should be cautiously evaluated and the patient potentially subjected to extra precautions such as additional clinical monitoring, including collection of an additional specimen. Methodology: Nucleic Acid Amplification Test (NAAT) includes PCR or TMA Additional information about COVID-19 can be found at the [employer] website: www.[employer]/Covid19. Test performed at [employer] [facility] [address] [place] [address] Director: ELIAS DIOR DO,MPH NASOPHARYNGEAL SWAB / Unknown 08/06/2019 1:00 PM CDT Vincent Villalobos MD MICROBIOLOGY - GENERAL ORDNikki HARTMAN Final Result [email or web address] [facility] [address] [place], [place] [address] documented in this encounter Visit Diagnoses Diagnosis Cervical spinal stenosis- Primary Spinal stenosis in cervical region Cervical myelopathy (CMS/[facility]) Cervical spondylosis with myelopathy Cervical disc herniation Displacement of cervical intervertebral disc without myelopathy documented in this encounter Additional Health Concerns Infection Onset Date Last Indicated Resolved Time COVID-19 Rule Out 08/06/2019 08/06/2019 08/08/2019 10:44 AM CDT COVID-19 Rule Out 02/29/2020 02/29/2020 03/01/2020 7:50 PM LEAN LEADER COVID-19 Rule Out 03/19/2021 03/19/2021 03/19/2021 2:05 PM LEAN LEADER COVID-19 Rule Out 03/19/2021 03/19/2021 03/21/2021 12:00 AM LEAN LEADER COVID-19 Rule Out 12/01/2021 12/01/2021 12/01/2021 11:38 PM CDT documented as of this encounter Care Teams Assistant Hairstylist Relationship Specialty Start Date End Date Yehuda Carrasco MD Three [facility]. [facility] [address] [place] [address] PCP - General FAMILY PRACTICE 06/04/19 12/29/20 Radha Tucker APNP [address] [place] [address] PCP - General NURSE PRACTITIONER 12/30/20 Isael Khalil MD Three [facility]. [address] [place] [address] [place] Explosive Ordnance Disposal Technician CARDIOVASCULAR DISEASE 04/28/17 Tee Fajardo MD Three [facility]. [address] [place], [place] [address] EP Explosive Ordnance Disposal Technician CLINICAL CARDIAC ELECTROPHYSIOLOGY 08/30/18 documented as of this encounter
--- OUTSIDE RECORDS SUMMARY | 2024-05-02 01:15 | XMS_ITS | Encounter Summary ---
Author Organization [facility] Address [facility] [place] [address] Care Team Providers Care Landscape Laborer Name Role Phone Isael Khalil MD Unavailable [phone] Tee Fajardo MD Unavailable Radha Tucker Primary Care Provider [phone] Encounter Details Date Type Department Care Team (Late st Contact Info) Description 01/14/2022 [employer] Systemshart Message Enc [facility] Family & Internal Medicine [facility] [address] [place] [address] Radha Tucker APNP [address] [place] [address] CAT SCAN Social History Tobacco Use Types Packs/Day Years Used Date Smoking Tobacco: Never Smokeless Tobacco: Never Alcohol Use Standard Drinks/Week Comments No 0 (1 standard drink = 0.6 oz pur e alcohol) PHQ-2 Answer Date Recorded PHQ-2 Score - If the patient scores above 3, please move on to questions 3-9 0 06/03/2021 Comments No Sex and Gender Information Value Date Recorded Sex Assigned at Not on file Legal Sex Female 3:25 PM HOG FEEDER Gender Identity Female 03/31/2021 3:03 PM HOG FEEDER Sexual Orientation Straight 03/31/2021 3: 03 PM HOG FEEDER 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 No / Unsure 01/08/2022 9:24 AM CDT documented as of this encounter [...] Author Status No 08/09/2019 2:57 PM CDT aKyleigh Pickens RN Active * Because of a [...] st Contact Info) Description 05/07/2024 1:00 PM HOG FEEDER Office Visit [facility] Multispecialty Care - [address], [address] [place] [address] Radha Tucker, LUCIO [address] [place] [address] Raj Barbour MD [address] [place] [address] 01/25/2025 9:40 AM HOG FEEDER Office Visit [facility] - [facility] [address] [facility] [address] [place] [address] Nhan Garcia MD [address] [facility] [address] [place] [address] 03/05/2025 9:00 AM HOG FEEDER Office Visit [facility] [address] [facility] [address], [address] [place] [address] Isael Khalil MD [facility] [address] [place] [address] documented as of this encounter Visit Diagnoses Not on filedocumented in this encounter Additional Health Concerns Assessment Noted Time PHQ-9 Depression Total Score: 0 06/04/19 22 8:33 AM CDT documented as of this encounter Care Teams Landscape Laborer Relationship Specialty Start Date End Date Radha Tucker APNP [address] [place] [address] PCP - General NURSE PRACTITIONER 12/30/20 Isael Khalil MD Three [facility]. [address] [place] [address] [place] Ict Teacher CARDIOVASCULAR DISEASE 04/28/17 Tee Fajardo MD Three [facility]. [address] [place], [place] [address] EP Ict Teacher CLINICAL CARDIAC ELECTROPHYSIOLOGY 08/30/18 documented as of this encounter
--- OUTSIDE RECORDS SUMMARY | 2024-05-02 01:16 | XMS_ITS | Encounter Summary ---
Author Organization [facility] Address [facility] [place] [address] Care Team Providers Care Telehealth Director Name Role Phone Isael Khalil MD Unavailable [phone] Tee Fajardo MD Unavailable Yehuda Carrasco MD Primary Care Provider [phone] Radha Tucker Primary Care Provider [phone] Encounter Details Date Type Department Care Team (Latest Contact Info) Description 09/07/2020 MyChart Message Enc [facility] Multispecialty Care - [facility] [address] [phone] Alma Rosa Kan MD [address] [phone] RE: Test Results Social History Tobacco Use Types Packs/Day Years Used Date Smoking Tobacco: Never Smokeless Tobacco: Never Alcohol Use Standard Drinks/Week Comments No 0 (1 standard drink = 0.6 oz pur e alcohol) PHQ-2 Answer Date Recorded PHQ-2 Score - If the patient scores above 3, please move on to questions 3-9 0 05/07/2020 Comments No Sex and Gender Information Value Date Recorded Sex Assigned at Not on file Legal Sex Female 3:25 PM ANDROID SOFTWARE ENGINEER Gender Identity Female 03/31/2021 3:03 PM ANDROID SOFTWARE ENGINEER Sexual Orientation Straight 03/31/2021 3: 03 PM ANDROID SOFTWARE ENGINEER Occupation Industry Job Start Date Job End Date Not on file Not on file Not on file Not on file COVID-19 Exposure Response Date Recorded In the last month, have you been in contact with someone who was confirmed or suspected to have Coronavirus / COVID-19? No / Unsure 09/02/2020 1:48 PM CDT documented as of this encounter [...] st Contact Info) Description 05/07/2024 1:00 PM ANDROID SOFTWARE ENGINEER Office Visit [facility] Multispecialty Care - [address], [address] [place] [phone] Radha Tucker APNP [address] [place] [address] Raj Barbuor MD 3 [place] [address] 01/25/2025 9:40 AM ANDROID SOFTWARE ENGINEER Office Visit [facility] Multispecialty Care - [facility] 3 [facility] [address] [place] [address] Nhan Garcia MD 3 [facility] [address] [place] [address] 03/05/2025 9:00 AM ANDROID SOFTWARE ENGINEER Office Visit [place] [facility] THREE [facility], [address] [place] [address] Isael Khalil MD Three [facility]. [address] [place] [address] documented as of this encounter Visit Diagnoses Not on filedocumented in this encounter Additional Health Concerns Infection Onset Date Last Indicated Resolved Time COVID-19 Rule Out 03/19/2021 03/19/2021 03/19/2021 2:05 PM ANDROID SOFTWARE ENGINEER COVID-19 Rule Out 03/19/2021 03/19/2021 03/21/2021 12:00 AM ANDROID SOFTWARE ENGINEER COVID-19 Rule Out 12/01/2021 12/01/2021 12/01/2021 11:38 PM CDT documented as of this encounter Care Teams Telehealth Director Relationship Specialty Start Date End Date Yehuda Carrasco MD [facility]. [address] [place] [address] PCP - General FAMILY PRACTICE 06/04/19 12/29/20 Radha Tucker APNP [address] [place] [address] PCP - General NURSE PRACTITIONER 12/30/20 Isael Khalil MD Three [facility]. [address] [id number] [place] Jack Setter CARDIOVASCULAR DISEASE 04/28/17 Tee Fajardo MD Three [facility]. [place] [address] [place], [place] [phone] [place] Jack Setter CLINICAL CARDIAC ELECTROPHYSIOLOGY 08/30/18 documented as of this encounter
--- OUTSIDE RECORDS SUMMARY | 2024-05-02 01:16 | XMS_ITS | Encounter Summary ---
Author Organization [facility] Address [facility] [place] [address] Care Team Providers Care Protein Specialist Name Role Phone Isael Khalil MD Unavailable [phone] Tee Fajardo MD Unavailable Radha Tucker Primary Care Provider [phone] Encounter Details Date Type Department Care Team (Late st Contact Info) Description 11/30/2021 MyChart Message Enc [facility] Medical [facility] Family & Internal Medicine [facility] [address] [place] [address] Radha Tucker APNP [address] [place] [address] Right middle finger Social History Tobacco Use Types Packs/Day Years [...] on file Legal Sex Female 3:25 PM PIN OR CLIP FASTENER Gender Identity Female 03/31/2021 3:03 PM PIN OR CLIP FASTENER Sexual Orientation Straight 03/31/2021 3: 03 PM PIN OR CLIP FASTENER 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 No / Unsure 12/01/2021 10:07 PM CDT documented as of this encounter [...] st Contact Info) Description 05/07/2024 1:00 PM PIN OR CLIP FASTENER Office Visit [facility] Multispecialty Care - [address], [address] [place] [address] Radha Tucker, LUCIO [address] [place] [address] Raj Barbour MD [address] [place] [address] 01/25/2025 9:40 AM PIN OR CLIP FASTENER Office Visit [facility] - [facility] [address] [facility] [address] [place] [phone] Nhan Garcia MD [address] [facility] [address] [place] [address] 03/05/2025 9:00 AM PIN OR CLIP FASTENER Office Visit [place] [facility] [facility] [address] [place] [address] Isael Khalil MD Three [facility]. [address] [place], [place] [address] documented as of this encounter Visit Diagnoses Not on filedocumented in this encounter Additional Health Concerns Infection Onset Date Last Indicated Resolved Time COVID-19 Rule Out 12/01/2021 12/01/2021 12/01/2021 11:38 PM CDT Assessment Noted Time PHQ-9 Depression Total Score: 0 06/04/19 22 8:33 AM CDT documented as of this encounter Care Teams Protein Specialist Relationship Specialty Start Date End Date Radha Tucker APNP [address] [place] [address] PCP - General NURSE PRACTITIONER 12/30/20 Isael Khalil MD Three [facility]. [address] [place] [address] [place] Barrel Roller Operator CARDIOVASCULAR DISEASE 04/28/17 Tee Fajardo MD [address] [facility] [address] [place], [place] [phone] EP Barrel Roller Operator CLINICAL CARDIAC ELECTROPHYSIOLOGY 08/30/18 documented as of this encounter
--- OUTSIDE RECORDS SUMMARY | 2024-05-02 01:16 | XMS_ITS | Encounter Summary ---
Author Organization [facility] Address [facility] [place] [address] Care Team Providers Care State Epidemiologist Name Role Phone Isael Khalil MD Unavailable [phone] Tee Fajardo MD Unavailable Yehuda Carrasco MD Primary Care Provider [phone] Radha Tucker Primary Care Provider [phone] Encounter Details Date Type Department Care Team (Late st Contact Info) Description 03/17/2020 Liquid State Message Enc [facility], [facility] [address] [place] [address] Isael Khalil MD [facility]. [facility] [address] [place] [address] Medication Questions Social History Tobacco Use Types Packs/Day Years Used Date Smoking Tobacco: Never Smokeless Tobacco: Never Alcohol Use Standard Drinks/Week Comments No 0 (1 standard drink = 0.6 oz pur e alcohol) Comments No Sex and Gender Information Value Date Recorded Sex Assigned at Not on file Legal Sex Female 3:25 PM CERTIFIED ORTHOTIST Gender Identity Female 03/31/2021 3:03 PM CERTIFIED ORTHOTIST Sexual Orientation Straight 03/31/2021 3: 03 PM CERTIFIED ORTHOTIST Occupation Industry Job Start Date Job End Date Not on file Not on file Not on file Not on file COVID-19 Exposure Response Date Recorded In the last month, have you been in contact with someone who was confirmed or suspected to have Coronavirus / COVID-19? No / Unsure 03/17/2020 3:23 PM CERTIFIED ORTHOTIST documented as of this encounter Functional Status [...] st Contact Info) Description 05/07/2024 1:00 PM CERTIFIED ORTHOTIST [facility] [address], [address] [place] [address] Radha Tucker, LUCIO [address] [place] [address] Raj Barbour MD [address] [place] [address] 01/25/2025 9:40 AM CERTIFIED ORTHOTIST Office Visit [facility] - [facility] [address] [facility] [address] [place] [id number] Nhan Garcia MD [address] [place] [address] [place] [address] 03/05/2025 9:00 AM CERTIFIED ORTHOTIST Office Visit [facility] [facility], [place] [address] [place] [address] Isael Khalil MD Three [facility]. [place] [address] [place], [place] [id number] documented as of this encounter Visit Diagnoses Not on filedocumented in this encounter Additional Health Concerns Infection Onset Date Last Indicated Resolved Time COVID-19 Rule Out 03/19/2021 03/19/2021 03/19/2021 2:05 PM CERTIFIED ORTHOTIST COVID-19 Rule Out 03/19/2021 03/19/2021 03/21/2021 12:00 AM CERTIFIED ORTHOTIST COVID-19 Rule Out 12/01/2021 12/01/2021 12/01/2021 11:38 PM CDT documented as of this encounter Care Teams State Epidemiologist Relationship Specialty Start Date End Date Yehuda Carrasco MD Three [facility]. [place] [address] [place] [address] PCP - General FAMILY PRACTICE 06/04/19 12/29/20 Radha Tucker APNP [address] [place] [id number] PCP - General NURSE PRACTITIONER 12/30/20 Isael Khalil MD Three [facility]. [place] [address] [place], [place] [address] [place] Occupational Therapy Manager CARDIOVASCULAR DISEASE 04/28/17 Tee Fajardo MD [facility]. [facility] [address] [place] [address] EP Occupational Therapy Manager CLINICAL CARDIAC ELECTROPHYSIOLOGY 08/30/18 documented as of this encounter
--- OUTSIDE RECORDS SUMMARY | 2024-05-02 01:16 | XMS_ITS | Encounter Summary ---
Author Organization [facility] Address [facility] [place] [address] Care Team Providers Care Take Off Man Name Role Phone Isael Khalil MD Unavailable [phone] Tee Fajardo MD Unavailable Radha Tucker Primary Care Provider [phone] Encounter Details Date Type Department Care Team (Late st Contact Info) Description 06/01/2022 MyChart Message Enc [facility] Family & Internal Medicine [facility] [address] [place] [address] Radha Tucker APNP [address] [place] [address] Left eye Social History Tobacco Use Types Packs/Day Years Used Date Smoking Tobacco: Never Passive Smoke Exposure: Past Smokeless Tobacco: Never Alcohol Use Standard Drinks/Week Comments No 0 (1 standard drink = 0.6 oz pur e alcohol) PHQ-2 Answer Date Recorded Patient Health Questionnaire-2 Score 0 05/21/2022 Comments No Sex and Gender Information Value Date Recorded Sex Assigned at Not on file Legal Sex Female 3:25 PM LINE OPERATOR Gender Identity Female 03/31/2021 3:03 PM LINE OPERATOR Sexual Orientation Straight 03/31/2021 3: 03 PM LINE OPERATOR 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 No / Unsure 05/21/2022 9:19 AM LINE OPERATOR documented as of this encounter Functional Status [...] documented in this encounter Progress Notes * MARCIN Farr - 06/01/2022 5:36 PM CDT She can try an antihistamine eye drop and see if this helps. Was it crusty this am? If not start with the antihistamine eye drops. Pataday 1 drop affected eye daily documented in this encounter Plan of Treatment Upcoming Encounters Date Type Department Care Team (Late st Contact Info) Description 05/07/2024 1:00 PM LINE OPERATOR Office Visit [facility] Multispecialty Care - [address], [address] [place] [address] Radha TuckerLUCIO [address] [place] [address] Raj Barbour MD [address] [place] [address] 01/25/2025 9:40 AM LINE OPERATOR Office Visit [facility] Multispecialty Care - [facility] [address] [facility] [place] [address] Nhan Garcia MD [address] [place] [address] [address] [place] [address] 03/05/2025 9:00 AM LINE OPERATOR Office Visit [facility], [place] [place] [address] Isael Khalil MD [facility]. [place] [place] [address] documented as of this encounter Visit Diagnoses Not on filedocumented in this encounter Additional Health Concerns Assessment Noted Time PHQ-9 Depression Total Score: 6 02/05/20 22 11:44 AM LINE OPERATOR documented as of this encounter Care Teams Take Off Man Relationship Specialty Start Date End Date Radha Tucker APNP [address] [place] [address] PCP - General NURSE PRACTITIONER 12/30/20 Isael Khalil MD [facility]. [place] [address] [place] [address] [employer] Cook CARDIOVASCULAR DISEASE 04/28/17 Tee Fajardo MD [facility]. [place] [address] [place] [address] EP Vegetables Cook CLINICAL CARDIAC ELECTROPHYSIOLOGY 08/30/18 documented as of this encounter
--- OUTSIDE RECORDS SUMMARY | 2024-05-02 01:16 | XMS_ITS | Clinical Summary ---
Author Organization [facility] [place] Address [address] [place] [address] Care Team Providers Care Editing Internship Name Role Phone Radha Tucker Primary Care Provider + Allergies Active Allergy Reactions Criticality Noted Date Comments Adhesive Rash High 09/16/2021 Cefuroxime Rash Medium 05/14/2016 rash Nalbuphine Vomiting High 09/16/2021 Vomiting for several hours Quinolones Rash Medium 05/14/2016 severe rash severe rash rash Medications ramipril (ALTACE) 10 mg capsule TAKE 2 CAPSULES DAILY 180 3 012 Active calcium citrate-vitamin D3 (CITRACAL WITH D) 315 mg-6.25 mcg (250 unit) per tablet Take 1 tablet by mouth 2 (two) times a day as needed Active famotidine (PEPCID) 20 mg tablet Take 1 tablet (20 mg total) by mouth 2 (two) times a day as needed Active hydroCHLOROthiazid e (HYDRODIURIL) 12.5 mg tablet Take 1 tablet (12.5 mg total) by mouth maintenance service supervisor before breakfast 021 Active Linzess 72 mcg capsule 021 Active amoxicillin 500 mg capsule TK FOUR CS PO 1 HOUR B DAPP 024 Active estradioL (ESTRACE) 0.01 % (0.1 mg/gram) vaginal cream 023 Active Restasis 0.05 % ophthalmic emulsion 1 drop 2 (two) times a day Active biotin 1 mg capsule Take 300 mcg by mouth daily Active multivit with min-folic acid 200 mcg tablet,chewable Take by mouth daily Active acidophilus-pectin , citrus 100 million cell-10 mg capsule Take by mouth daily Generic multivitamin gummy Active mecobalamin, vitamin B12, (B12 Active) 1,000 mcg tablet,chewable Take by mouth Adult gummy Active Synthroid 100 mcg tablet TAKE 1 TABLET EVERY DAY 90 tablet 3 025 Active semaglutide (OZEMPIC) 0.25 mg or 0.5 mg (2 mg/3 mL) pen injector injectionIndicatio ns:BMI 31.0-31.9,adult,Me tabolic dysfunction-associ ated steatohepatitis (MASH) Inject 0.25 mg under the skin every 7 days 1.5 mL 025 2024 Active Synthroid 100 mcg tablet Take 1 tablet Tuesday thru Tuesday and take 1/2 tablet on 024 2024 Discontinued tirzepatide, weight loss, (Zepbound) 2.5 mg/0.5 mL pen injectorIndication s:Weight Loss Management for Obese Patient (BMI >= 30) Inject 0.5 mL (2.5 mg total) under the skin once a week for 28 days 2 mL 025 2024 semaglutide (OZEMPIC) 0.25 mg or 0.5 mg (2 mg/3 mL) pen injector injectionIndicatio ns:BMI 31.0-31.9,adult,Me tabolic dysfunction-associ ated steatohepatitis (MASH) Inject 0.25 mg under the skin every 7 days 1.5 mL 025 2024 Discontinued(R eorder) Active Problems Problem Noted Date Diagnosed Date Metabolic dysfunction-associated steatohepatitis (MASH) 03/23/2024 Decreased GFR 02/18/2020 Nephrolithiasis 02/18/2020 Lumbar degenerative disc disease 02/06/2020 KRISTIAN (obstructive sleep apnea) 12/12/2017 BMI 37.0-37.9, adult 11/07/2017 Status post total right knee replacement 017 Cervical disc herniation 07/08/2016 PVC's (premature ventricular contractions) 05/14 GERD (gastroesophageal reflux disease) 6 Family history of colon cancer 07/25/2015 Overview (10/06/2021): Colonoscopy due early 2017 Hypothyroidism, postablative 07/25/2015 Assessment & Plan (04/17/2024 9:13 AM PROPOSAL MANAGER WRITER): Chronic problem. Clinically & biochemically euthyroid on current Synthroid 100mcg daily. Aware to take 1st thing in morning, 30-60 minutes before food/drink/other medications. Will update labs. Verified that she uses mychart. Aware to check results/results letter in [employer]. Will contact by phone if needed. Assessment & Plan (04/21/2023 9:59 AM PROPOSAL MANAGER WRITER): With low TSH Will update TFTs If TSH is still low, will lower Synthroid, to 100 mcg daily but 1/2 tab on Sundays Assessment & Plan (04/20/2022 1:48 PM PROPOSAL MANAGER WRITER): Continue Synthroid at current dose Assessment & Plan (10/06/2021 10:14 AM CDT): Stay on Synthroid, 100 mcg daily Osteoarthritis of knee, unspecified (CODE) 07/24 Uterine prolapse 07/25/2015 Vitamin B12 deficiency 07/25/2015 Vitamin D deficiency 07/25/2015 Insomnia 09/18/2014 Benign essential hypertension 07/02/2014 Resolved Problems Problem Noted Date Diagnosed Date Resolved Date Hypothyroidism 04/28/2017 04/16/2024 Overview (04/28/2017): Hypothyroidism Assessment & Plan (04/07/2021 4:30 PM PROPOSAL MANAGER WRITER): Continue with Synthroid 100 mcg daily Prescription for brand-name was sent Recheck TSH and free T4 in 3 months Assessment & Plan (11/29/2019 3:29 PM CDT): continue Synthroid, 112 mcg daily Assessment & Plan (11/30/2018 3:20 PM CDT): Stay on current dose of Synthroid, 112 mcg daily Do not let the dose be changed Call with any questions please. Assessment & Plan (05/25/2018 4:16 PM PROPOSAL MANAGER WRITER): Stop cytomel ( pt would prefer to stay on one medication only ) Increase Synthroid 112 mcg daily Recheck levels in 3 m Assessment & Plan (12/01/2017 1:51 PM CDT): Your goal of treatment is to keep TSH and free T4 within normal range. Take your thyroid medication on empty stomach, preferably in the morning, 1 hour apart from food and other medications. Due to the narrow therapeutic range of Levothyroxine ( small changes in dose make a big difference on thyroid medication blood levels ) , brand name is strongly recommended. The medication should be taken daily. If one or more pills are missing in a week, they can be taken all together at once, making sure at the end of the week, all 7 tabs have been taken. Assessment & Plan (04/28/2017 9:52 AM PROPOSAL MANAGER WRITER): Continue Levothyroxine and Cytomel Take med regularly Encounters Date Type Department Care Team Description 04/27/2024 Telephone [facility] Gastroenterology [address] [place] [address] [place] [address] Erica Linn RN Prior Auth 04/27/2024 Documentation [facility] Gastroenterology [address] [place] [address] [place] [address] Erica Linn RN 04/17/2024 9:00 AM PROPOSAL MANAGER WRITER Office Visit [facility] Diabetes and Endocrinology [address] [place] [phone] Silvaan Contreras NP Hypothyroidism, postablative (Primary Dx) 04/17/2024 Telephone [facility] Diabetes and Endocrinology [address] [place] [phone] Silvana Contreras NP Lab Orders 04/16/2024 Documentation [facility] Gastroenterology [address] [place] [address] Medicine [facility] [place] [address] Erica Linn RN 04/06/2024 Telephone [facility] Gastroenterology [address] [place] [address] Erica Linn RN Prior Auth 04/05/2024 Telephone [facility] Gastroenterology [address] [place] [address] [place] [address] Erica Linn RN 03/29/2024 Orders Only [facility] [address] [place] [address] Oscar Todd MD Metabolic dysfunction-associated steatohepatitis (MASH) 03/23/2024 1:00 PM PROPOSAL MANAGER WRITER Procedure visit [facility] Gastroenterology [address] [place] [address] [place] [address] Metabolic dysfunction-associated steatotic liver disease (MASLD) 03/23/2024 9:00 AM PROPOSAL MANAGER WRITER Office Visit [facility] Gastroenterology [address] [place] [address] [place] [address] Oscar Todd MD Metabolic dysfunction-associated steatohepatitis (MASH) (Primary Dx) 03/23/2024 Telephone [facility] Gastroenterology [address] [place] [address] [place] [address] Savita Heard Prior auth (zepbound); Liver Biopsy Request 03/12/2024 Orders Only [facility] Gasteroenterology [address] [place] [address] [place] [address] Oscar Todd MD Metabolic dysfunction-associated steatotic liver disease (MASLD) (Primary Dx) from Last 3 Months Immunizations Name Administration Dates Next Due Influenza, Quadrivalent, Spl it, Preservative Free, Intramuscular 12/19/2019,12/29/2018,12/11/2015 Tdap 12/29/2018,03/21/2008 ZOSTER LIVE 05/14/2020 ZOSTER Recombinant 12/19/2019 Surgical History Surgery Date Site/Laterality Comments KNEE SURGERY 04/21/2005 - 05/18/2005 Right Knee Surgery OTHER SURGICAL HISTORY D & C for miscarriages in 1980 and 1991 OTHER SURGICAL HISTORY 03/21/1982 - 03/20/1983 laparoscopy and tubal insufflation NECK SURGERY 07/20/2019 - 08/19/2019 CARDIAC ELECTROPHYSIOLOGY MAPPING AND ABLATION Medical History Medical History Date Comments Hypothyroidism Hypothyroidism Hypertension Hypertension Hx Other Medical PVC's Dry cornea of both eyes due to Graves' disease Family History Medical History Relation Name Comments Coronary artery disease Father Eric nary Artery Disease; Other Other No family histo ry of Thyroid disease; Relation Name Status Comments Father Alive Other Social History Tobacco Use Types Packs/Day Years Used Date Smoking Tobacco: Never Smokeless Tobacco: Never Alcohol Use Standard Drinks/Week Comments No 0 (1 standard drink = 0.6 oz pur e alcohol) PHQ-2 Answer Date Recorded PHQ-2 Total Score (If total score is 3 or more points, staff should administer the PHQ-9) 0 04/20/2022 Comments Unknown Sex and Gender Information Value Date Recorded Sex Assigned at Not on file Legal Sex Female 8:52 PM PROPOSAL MANAGER WRITER Gender Identity Not on file Sexual Orientation Not on file Obstetrics History Last Filed Vital Signs Vital Sign Reading Time Taken Comments Blood Pressure 118/70 04/17/2024 8:58 AM PROPOSAL MANAGER WRITER Pulse 67 04/17/2024 8:58 AM PROPOSAL MANAGER WRITER Temperature 36.3 C (97.4 F) 03/23/2024 8:58 AM PROPOSAL MANAGER WRITER Respiratory Rate 16 04/17/2024 8:58 AM PROPOSAL MANAGER WRITER Oxygen Saturation 96% 03/23/2024 8:58 AM PROPOSAL MANAGER WRITER Inhaled Oxygen Concentration - - Weight 91.2 kg (201 lb) 04/17/2024 8:58 AM PROPOSAL MANAGER WRITER Height 170.2 cm (5' 7.01 ) 04/17/2024 8:58 AM CS T Body Mass Index 31.47 04/17/2024 8:58 AM PROPOSAL MANAGER WRITER Plan of Treatment Health Maintenance Due Date Last Done Comments Breast Cancer Screening-Mammogram 1955 Colon Cancer Screening-Colonoscopy 1955 Hepatitis C Screening 1955 Osteoporosis Screening-Bone Density Scan 1955 Hepatitis B Screening 1973 Well Visit 65+ 02/09/2020 Zoster Vaccine (2 of 2) 07/09/2020 05/14/2020, 12/18 Pneumococcal vaccine 65+ (2 of 2 - PCV) 09/18/2022 09/18/2021 Depression Screening 04/20/2023 04/20/2022, 04/20/2022, 11/29/2019, Additional history exists Fall Risk Assessment 04/20/2023 04/20/2022 Covid-19 Vaccine (4 - 2023-2 5 season) 2023 01/23/2021, 04/14/2020, 03/17/2020 DTaP/Tdap/Td Vaccine (3 - Td or Tdap) 12/29/2028 12/29/2018, 03/21/2008 Influenza Vaccine Completed 01/09/2024, , 12/19/2019, Additional history exists Procedures Procedure Name Priority Date/Time Associated Diagnosis Comments T4, FREE Routine 04/27/2024 9:37 AM PROPOSAL MANAGER WRITER Hypothyroidism, postablative TSH Routine 04/27/2024 9:37 AM PROPOSAL MANAGER WRITER Hypothyroidism, postablative SURGICAL PATHOLOGY Routine 03/29/2024 10 :28 AM PROPOSAL MANAGER WRITER Metabolic dysfunction-associated steatohepatitis (MASH) LIVER ELASTOGRAPHY W/O IMAGING W/I&R Routine 03/23/2024 9:14 AM PROPOSAL MANAGER WRITER Metabolic dysfunction-associated steatotic liver disease (MASLD) from Last 3 Months Results * TSH (04/27/2024 9:37 AM PROPOSAL MANAGER WRITER) TSH 0.607 0.450 - 4.500 uIU/mL [facility] - 01 Blood 04/27/2024 9:37 AM PROPOSAL MANAGER WRITER 04/27/2024 Narrative [facility] - 04/28/2024 10:10 AM PROPOSAL MANAGER WRITER Performed at: 01 - [address] [id number] Engine Pilot: Parrish Hernandez PhD, Phone: [phone] us Silvana Contreras ENGINEERING TECHNOLOGIST LAB BLOOD ORDERABLES Leticia l Result [facility] - 01 * T4, free (04/27/2024 9:37 AM PROPOSAL MANAGER WRITER) T4,Free(Direct) 1.69 0.82 - 1.77 ng/dL [facility] - 01 Blood 04/27/2024 9:37 AM PROPOSAL MANAGER WRITER 04/27/2024 Narrative [facility] - 04/28/2024 10:10 AM PROPOSAL MANAGER WRITER Performed at: 01 - [address] [id number] Engine Pilot: Parrish Hernandez PhD, Phone: [phone] us Silvana Contreras ENGINEERING TECHNOLOGIST LAB BLOOD ORDERABLES Leticia pedro Result [facility] * Surgical pathology (03/29/2024 10:28 AM PROPOSAL MANAGER WRITER) Tissue (Miscellaneous) 03/29/2024 10:28 AM PROPOSAL MANAGER WRITER 03/29/2024 10:28 AM PROPOSAL MANAGER WRITER Narrative [facility] - 04/04/2024 6:08 PM PROPOSAL MANAGER WRITER EPIC results best viewed via link to PDF [facility] Pathology Consult Service Jose Rafael Fig[address], [address], [place] [address] Note to Patients: This report may contain a detailed description of human tissue sent by a health care provider to the laboratory for pathologic evaluation. The content of this report is essential for diagnosis and may provide important critical findings. This information may be unfamiliar to patients to review without a medical professional present. It is advised that the patient review this report in the presence of a health care provider who can answer questions and explain the details. SURGICAL PATHOLOGY REPORT * Consult Report * [facility] is providing an additional review of previously collected tissue. FINAL Patient Name: NATALIE DASILVA Address: [address] [place] [phone] Gender: F : 1955 (Age: 69) Hospital #: [id number] Patient Type: [facility] Location: UNKNOWN Taken: 03/29/2024 Received: 03/29/2024 Accessioned: 03/29/2024 Reported: 04/04/2024 Physician(s): Oscar Todd [facility] Department of Pathology [address] [place] [address] P: [phone] F: [phone] Histology: [phone] Diagnosis: Consult material received from [place], [place] (OSC: [id number], A1; 01/19/2024). Liver, [place], needle core biopsy: - Minimal macrovesicular steatosis involving < 5% of hepatocytes. - Focal mild portal inflammation. - Trichrome and reticulin stains provided show no significant fibrosis. - Iron stain provided is negative. - PAS-D stain provided shows no intracytoplasmic globules in periportal hepatocytes. [facility]/04/04/2024 13:03 By this signature, I attest that the above diagnosis is based upon my personal examination of the slides(and/or other material indicated in the diagnosis). Ruthie Stern MD, PHD Report Electronically Reviewed and Signed Out By Ruthie Stern MD, PHD 04/04/2024 18:08:55 Diagnosis Comment Thank you for sharing this case with the [facility] Liver/GI pathology service. We are in essential agreement with the diagnosis from [facility]. Microscopic Description and Comment: Unless gross-only is specified, the final diagnosis for each specimen is based on a microscopic examination of each tissue sample. History: The patient is a 69-year-old woman with history of metabolic dysfunction- associated steatohepatitis. Materials Received: Received for review are thirteen slides labeled [id number], accompanied by a corresponding pathology report. The material originates from [place], [place]. Selected slide(s) may be digitally scanned for our files, and all materials are returned to the referring institution, along with a copy of our final report. Any testing required for diagnostic purposes was performed in the Department of Pathology and Immunology at [facility], [address] [place] [address] [place] [address] CLIA # [id number] The performance characteristics of the testing cited in this report (if any) were determined by the [facility] Department of Pathology and Immunology [facility], as part of an ongoing clinical quality assurance associate program and in compliance with federally mandated regulations drawn from the Clinical Laboratory Improvement Act of 1988 (CLIA '88). Some of these tests rely on the use of analyte specific reagents (ASR) and are subject to specific labeling requirements by the US Food and Drug Administration. Such diagnostic tests may only be performed in a facility that is certified by the Department of Health and Human Services as a high complexity laboratory under CLIA '88. The FDA has determined that such clearance or approval is not necessary. ASRs should not be regarded as investigational or for research. ASRs were developed and the performance characteristics determined by the [facility], [facility] Department of Pathology and Immunology. It has not been cleared or approved by the U.S. Food and Drug Administration. Any test designated as LDT was developed and its performance characteristics determined by [facility]. It has not been cleared or approved by the FDA. This test is used for clinical purposes and should not be regarded as investigational or for research. Report images and/or scanned reports, if included, only viewable in PDF version of report. Oscar Todd MD LAB PATHOLOGY ORDERABLES nal Result [facility] [address] [address] * Liver Elastography w/o Imaging W/I&R -[facility] (All Locations) (03/23/2024 9:14 AMCST) Anatomical Region Laterality Modality Other Oscar Todd MD GI PROCEDURE ORDERABLES Fin al Result from Last 3 Months Insurance [employer] CHOICE MEDICARE PPO [employer] CHOICE MEDICARE PPO [employer] CHOICE MEDICARE PPO Care Teams Editing Internship Relationship Specialty Start Date End Date Radha Tucker PA [address] [place] [phone] PCP - General Nurse Practitioner 10/06/23
--- OUTSIDE RECORDS SUMMARY | 2024-05-02 01:16 | XMS_ITS | Encounter Summary ---
Author Organization [facility] Address [address] [place] [address] Phone Care Team Providers Care Measurement Psychologist Name Role Phone Radha Tucker Primary Care Provider + Reason for Visit * Reason Onset Date Comments Prior Auth 04/27/2024 Encounter Details Date Type Department Care Team (Late st Contact Info) Description 04/27/2024 Telephone [facility] Gastroenterology [address] [facility] [address] 12th [place] [address] [place] [address] Erica Linn RN Prior Auth Social History Tobacco Use Types Packs/Day Years [...] on file Legal Sex Female 8:52 PM PRACTICE NURSE Gender Identity Not on file Sexual Orientation Not on file documented as of this encounter Ordered Prescriptions Prescription Sig Dispense Quantity Refills Last Filled Start Date End Date semaglutide (OZEMPIC) 0.25 mg or 0.5 mg (2 mg/3 mL) pen injector injectionIndications: BMI 31.0-31.9,adult,Metab olic dysfunction-associate d steatohepatitis (MASH) Inject 0.25 mg under the skin every 7 days 1.5 mL 05/01/2024 documented in this encounter Miscellaneous Notes * Telephone Encounter - Mahsa Kahn - 05/01/2024 2:01 PM CST Perfect thank you so much for giving me the information. TICE NURSE * Telephone Encounter - Mahsa Kahn - 04/30/2024 11:24 AM PRACTICE NURSE Appeal faxed to plan 04/30/2024 Ozempic (0.25 or 0.5 MG/DOSE) 2MG/3ML pen-injectors Status: appeal approved Effective: until 03/20/2025 Auth # [id number] [employer] TICE NURSE TICE NURSE * Telephone Encounter - Mahsa Kahn - 04/27/2024 5:18 PM CST Patel: [id number] Ozempic (0.25 or 0.5 MG/DOSE) 2MG/3ML pen-injectors Status: denied. Drug is not covered for dx. Off-label use that is not medically accepted and drugs used to help lose weight are excluded from Medicare Part D coverage [employer] If you would like to appeal please write a LMN and send back to the PA team to complete appeal. Denial has been scanned in media TICE NURSE TICE NURSE * Telephone Encounter - Erica Linn RN - 04/27/2024 3:27 PM CST Images from the original note were not included. Received fax. Please obtain PA for Ozempic. TICE NURSE documented in this encounter Plan of Treatment Not on file documented as of this encounter Visit Diagnoses Diagnosis BMI 31.0-31.9,adult Metabolic dysfunction-associated steatohepatitis (MASH) documented in this encounter Discontinued Medications Medication Sig Discontinue Reason Start Date End Da te semaglutide (OZEMPIC) 0.25 mg or 0.5 mg (2 mg/3 mL) pen injector injectionIndications:BMI 31.0-31.9,adult,Metabolic dysfunction-associated steatohepatitis (MASH) Inject 0.25 mg under the skin every 7 days Reorder 04/27/2024 04/27/2024 documented as of this encounter Care Teams Measurement Psychologist Relationship Specialty Start Date End Date Radha Tucker PA [address] [place] [address] PCP - General Nurse Practitioner 10/06/23 documented as of this encounter
--- OUTSIDE RECORDS SUMMARY | 2024-05-02 01:16 | XMS_ITS | Encounter Summary ---
Author Organization [facility] Address [address] [place] [address] Phone Care Team Providers Care Core Worker Name Role Phone Radha Tucker Primary Care Provider + Reason for Visit * Reason Onset Date Comments Prior Auth 04/06/2024 Encounter Details Date Type Department Care Team (Late st Contact Info) Description 04/06/2024 Telephone [facility] Gastroenterology [address] [facility] 12th [place] [address] [place] [address] Erica Linn RN Prior Auth [...] on file Legal Sex Female 8:52 PM CARDIOVASCULAR SONOGRAPHER Gender Identity Not on file Sexual Orientation Not on file documented as of this encounter Miscellaneous Notes * Telephone Encounter - KahnMahsa - 04/12/2024 12:59 PM CARDIOVASCULAR SONOGRAPHER Form faxed to plan 04/12/2024 tirzepatide, weight loss, (Zepbound) 2.5 mg/0.5 mL pen injector Status: approved Effective: until 03/20/2025 [employer] IOVASCULAR SONOGRAPHER IOVASCULAR SONOGRAPHER * Telephone Encounter - Flaco Acuña BS - 04/11/2024 3:58 PM CST STOREY or submission method: PA form faxed Drug: tirzepatide, weight loss, (Zepbound) 2.5 mg/0.5 mL pen injector Status: pending/under review Insurance / [employer] & case # : [employer] case #: [id number] Decision due date( if available): Rep & Date of Call: Spoke with Iris Chery@ [employer] - 04/11/2024 IOVASCULAR SONOGRAPHER * Telephone Encounter - Erica Linn RN - 04/06/2024 8:00 AM CST There has been conflicting responses to if Zepbound is covered. Per patient, her insurance is requiring a LMN to cover/fill it. There is a letter under letters tab in chart. I faxed that to her insurance at~ [phone]. Per pt, the insurance contact # is [phone]. Can you please follow up on coverage. IOVASCULAR SONOGRAPHER documented in this encounter Plan of Treatment Not on file documented as of this encounter Visit Diagnoses Diagnosis Metabolic dysfunction-associated steatohepatitis (MASH) BMI 31.0-31.9,adult documented in this encounter Care Teams Core Worker Relationship Specialty Start Date End Date Radha Tucker PA [address] [place] [phone] PCP - General Nurse Practitioner 10/06/23 documented as of this encounter
--- OUTSIDE RECORDS SUMMARY | 2024-05-02 01:16 | XMS_ITS | Encounter Summary ---
Author Organization [facility] Facility Care Team Providers Care Failure Analysis Engineer Name Role Phone Paul Finley DO Primary Care Provider Paul Finley DO Primary Care Provider Radha Tucker Primary Care Provider + Encounter Details Date Type Department Care Team (Latest Contact Info) Description 05/28/2015 Orders Only [facility] CLINCONV ProviderBrie MD [address] [place] [address] Social History Tobacco Use Types Packs/Day Years Used Date Smoking Tobacco: Never Alcohol Use Standard Drinks/Week Comments No 0 (1 standard drink = 0.6 oz pur e alcohol) Comments Unknown Sex and Gender Information Value Date Recorded Sex Assigned at Not on file Legal Sex Female 8:52 PM DATA MIGRATION LEAD Gender Identity Not on file Sexual Orientation Not on file documented as of this encounter Plan of Treatment Not on file documented as of this encounter Procedures Procedure Name Priority Date/Time Associated Diagnosis Comments COLONOSCOPY - SCAN 05/28/2015 12 :00 AM DATA MIGRATION LEAD documented in this encounter Results * COLONOSCOPY - SCAN (05/28/2015 12:00 AM DATA MIGRATION LEAD) Narrative 05/28/2015 12:00 AM DATA MIGRATION LEAD Ordered by an unspecified provider. Historical Provider Final Res ult documented in this encounter Visit Diagnoses Not on filedocumented in this encounter Care Teams Failure Analysis Engineer Relationship Specialty Start Date End Date Paul Finley DO [address] [place] [address] PCP - General 06/18/16 11/28/19 Paul Finley DO [address] [place] [address] PCP - General 03/12/13 06/17/16 Radha Tucker PA [address] [place] [id number] PCP - General Nurse Practitioner 10/06/23 documented as of this encounter
--- OUTSIDE RECORDS SUMMARY | 2024-05-02 01:16 | XMS_ITS | Encounter Summary ---
Author Organization [facility] Address [facility] [place] [address] Care Team Providers Care Corporate Trust Officer Name Role Phone Isael Khalil MD Unavailable [phone] Tee Fajardo MD Unavailable Radha Tucker Primary Care Provider [phone] Encounter Details Date Type Department Care Team (Late st Contact Info) Description 10/07/2022 MyChart Message Enc [facility] Multispecialty Care - [facility] [address] [facility] [place] [address] Nhan Garcia MD [facility] [address] [place] [address] CPAP Machine Social History Tobacco Use Types Packs/Day Years [...] on file Legal Sex Female 3:25 PM AUTOMOTIVE SERVICE DIRECTOR Gender Identity Female 03/31/2021 3:03 PM AUTOMOTIVE SERVICE DIRECTOR Sexual Orientation Straight 03/31/2021 3: 03 PM AUTOMOTIVE SERVICE DIRECTOR 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 Answer Date of Assessment Author Status No 08/09/2019 2:57 PM BELLET Kayleigh Pickens RN Active documented as of this encounter Mental Status * Because of a physical, mental, or emotional condition, do you have serious difficulty concentrating, remembering, or making decisions? Answer Entry Date Author Status No 08/09/2019 2:57 PM Kayleigh Bradshaw RN Active documented in this encounter Plan of Treatment Upcoming Encounters Date Type Department Care Team (Late st Contact Info) Description 05/07/2024 1:00 PM AUTOMOTIVE SERVICE DIRECTOR [facility] - [address], [address] [place] [address] Radha Tucker, LUCIO [address] [place] [address] Raj Barbour MD [address] [place] [address] 01/25/2025 9:40 AM AUTOMOTIVE SERVICE DIRECTOR [facility] - [address] [place] [address] Nhan Garcia MD [address] [facility] [address] [place] [address] 03/05/2025 9:00 AM AUTOMOTIVE SERVICE DIRECTOR Office Visit [facility] THREE [facility], [address] [place] [address] Isael Khalil MD Three [facility]. [address] [place], [place] [address] documented as of this encounter Visit Diagnoses Not on filedocumented in this encounter Additional Health Concerns Assessment Noted Time PHQ-9 Depression Total Score: 6 02/05/20 22 11:44 AM AUTOMOTIVE SERVICE DIRECTOR documented as of this encounter Care Teams Corporate Trust Officer Relationship Specialty Start Date End Date Radha Tucker APNP [address] [place] [id number] PCP - General NURSE PRACTITIONER 12/30/20 Isael Khalil MD Three [facility]. [facility] [address] [place] [address] [place] Sales Agent [employer] CARDIOVASCULAR DISEASE 04/28/17 Tee Fajardo MD [facility]. [facility] [address] [place] [address] EP Sales Agent [employer] CLINICAL CARDIAC ELECTROPHYSIOLOGY 08/30/18 documented as of this encounter
--- OUTSIDE RECORDS SUMMARY | 2024-05-02 01:16 | XMS_ITS | Encounter Summary ---
Author Organization [facility] Address [facility] [place] [address] Care Team Providers Care Hose Suspender Cutter Name Role Phone Isael Khalil MD Unavailable [phone] Tee Fajardo MD Unavailable Radha Tucker Primary Care Provider [phone] Encounter Details Date Type Department Care Team (Late st Contact Info) Description 2024 SecondMic Message Enc [facility] Medical Group Family & Internal Medicine [facility] [address] [place] [phone] [facility] Xray results Social History Tobacco Use Types Packs/Day Years [...] Date Recorded Patient Health Questionnaire-2 Score 0 02/07/2024 Comments No Sex and Gender Information Value Date Recorded Sex Assigned at Not on file Legal Sex Female 3:25 PM LARGE ENGINE ASSEMBLER Gender Identity Female 03/31/2021 3:03 PM LARGE ENGINE ASSEMBLER Sexual Orientation Straight 03/31/2021 3: 03 PM LARGE ENGINE ASSEMBLER 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 Not [...] st Contact Info) Description 05/07/2024 1:00 PM LARGE ENGINE ASSEMBLER Office Visit [address], [address] [place] [address] Radha Tucker, LUICO [address] [place] [address] Raj Barbour MD [address] [place] [address] 01/25/2025 9:40 AM LARGE ENGINE ASSEMBLER [facility] [address] [place] [address] Nhan Garcia MD [facility] [address] [place] [address] 03/05/2025 9:00 AM LARGE ENGINE ASSEMBLER Office Visit [facility] [facility], [address] [place] [address] Isael Khalil MD Three [facility]. [place] [address] [place] [address] documented as of this encounter Visit Diagnoses Not on filedocumented in this encounter Additional Health Concerns Assessment Noted Time PHQ-9 Depression Total Score: 0 02/23/20 23 1:34 PM LARGE ENGINE ASSEMBLER documented as of this encounter Care Teams Hose Suspender Cutter Relationship Specialty Start Date End Date Radha Tucker APNP [address] [place] [id number] PCP - General NURSE PRACTITIONER 12/30/[address] [facility]. [address] [place] [address] [place] Textile Screen Printer CARDIOVASCULAR DISEASE 04/28/17 Tee Fajardo MD Three [facility]. [place] [address] [place], [place] [address] EP Textile Screen Printer CLINICAL CARDIAC ELECTROPHYSIOLOGY 08/30/18 documented as of this encounter
--- OUTSIDE RECORDS SUMMARY | 2024-05-02 01:16 | XMS_ITS | Encounter Summary ---
Author Organization [facility] Address [facility] [place] [address] Care Team Providers Care Rn Camp Name Role Phone Isael Khalil MD Unavailable [phone] Tee Fajardo MD Unavailable Yehuda Carrasco MD Primary Care Provider [phone] Radha Tucker Primary Care Provider [phone] Encounter Details Date Type Department Care Team (Latest Contact Info) Description 10/01/2019 MyCMission Capital Advisorst Message Enc [facility] Medical [facility] Multispecialty Care - [address], [address] [place] [address] Deborah Arvizu, LUCIO [address] [address] Follow Up/Update Social History Tobacco Use Types Packs/Day Years Used Date Smoking Tobacco: Never Smokeless Tobacco: Never Alcohol Use Standard Drinks/Week Comments No 0 (1 standard drink = 0.6 oz pur e alcohol) Comments No Sex and Gender Information Value Date Recorded Sex Assigned at Not on file Legal Sex Female 3:25 PM EQUITY SALES ASSISTANT Gender Identity Female 03/31/2021 3:03 PM EQUITY SALES ASSISTANT Sexual Orientation Straight 03/31/2021 3: 03 PM EQUITY SALES ASSISTANT Occupation Industry Job Start Date Job End Date Not on file Not on file Not on file Not on file COVID-19 Exposure Response Date Recorded In the last month, have you been in contact with someone who was confirmed or suspected to have Coronavirus / COVID-19? No / Unsure 10/03/2019 12:34 PM CDT documented as of this encounter [...] in this encounter Progress Notes * LUCIO Kwok - 10/02/2019 3:42 PM CDT This should be fine, Im guessing its more convenient for her. * Sonya Haro LPN - 10/02/2019 9:56 AM CDT Will this work or she I reschedule? thanks documented in this encounter Plan of Treatment Upcoming Encounters Date Type Department Care Team (Late st Contact Info) Description 05/07/2024 1:00 PM EQUITY SALES ASSISTANT Office Visit [facility] Multispecialty Care - [facility] [address] [facility], [address] [place] [address] Radha Tucker, JOSENP [address] [place] [address] Raj Barbour MD [address] [facility] [place] [address] 01/25/2025 9:40 AM EQUITY SALES ASSISTANT [facility] [address] [facility] [place] [phone] Nhan Garcia MD 3 [facility] [address] [place] [address] 03/05/2025 9:00 AM EQUITY SALES ASSISTANT Office Visit [facility] THREE [facility], [address] [place] [address] Isael Khalil MD Three [facility]. [place] [address] [place] [address] documented as of this encounter Visit Diagnoses Not on filedocumented in this encounter Additional Health Concerns Infection Onset Date Last Indicated Resolved Time COVID-19 Rule Out 02/29/2020 02/29/2020 03/01/2020 7:50 PM EQUITY SALES ASSISTANT COVID-19 Rule Out 03/19/2021 03/19/2021 03/19/2021 2:05 PM EQUITY SALES ASSISTANT COVID-19 Rule Out 03/19/2021 03/19/2021 03/21/2021 12:00 AM EQUITY SALES ASSISTANT COVID-19 Rule Out 12/01/2021 12/01/2021 12/01/2021 11:38 PM CDT documented as of this encounter Care Teams Rn Camp Relationship Specialty Start Date End Date Yehuda Carrasco MD [address] [place] [address] [place] [phone] PCP - General FAMILY PRACTICE 06/04/19 12/29/20 Radha Tucker APNP [address] [place] [phone] PCP - General NURSE PRACTITIONER 12/30/20 Isael Khalil MD [facility] [place] [address] [place] [phone] [place] Supervisor Color Paste Mixing CARDIOVASCULAR DISEASE 04/28/17 Tee Fajardo MD [address] [place] [address] [place] [id number] EP Supervisor Color Paste Mixing CLINICAL CARDIAC ELECTROPHYSIOLOGY 08/30/18 documented as of this encounter
--- OUTSIDE RECORDS SUMMARY | 2024-05-02 01:16 | XMS_ITS | Encounter Summary ---
Author Organization [facility] Address [facility] [place] [address] Care Team Providers Care Building Maintenance Worker Name Role Phone Isael Khalil MD Unavailable [phone] Tee Fajardo MD Unavailable Radha Tucker Primary Care Provider Reason for Visit * Reason Onset Date Comments Follow Up Call 03/27/2024 Encounter Details Date Type Department Care Team (Late st Contact Info) Description 03/27/2024 20:20 Mobilehart Message Enc [facility] Family & Internal Medicine - [place] [address] [place] [address] Radha Tucker APNP [address] [place] [address] [facility] Hepatology (1-3) and [facility] GI (1-7)appts. 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 Not [...] st Contact Info) Description 05/07/2024 1:00 PM NEWSPAPER EDITOR Office Visit [facility] Multispecialty Care - [facility] [address] [facility], [address] [place] [address] Radha Tucker APNP [address] [place] [address] Raj Barbour MD [address] [place] [address] 01/25/2025 9:40 AM NEWSPAPER EDITOR Office Visit [facility] Multispecialty Care - [facility] [address] [facility] [address] [place] [address] Nhan Garcia MD 3 [facility] [address] [place] [address] 03/05/2025 9:00 AM NEWSPAPER EDITOR Office Visit [facility] THREE [facility], [address] [place] [address] Isael Khalil MD [facility]. [place] [address] [place] [address] documented as of this encounter Visit Diagnoses Not on filedocumented in this encounter Additional Health Concerns Assessment Noted Time PHQ-9 Depression Total Score: 0 02/23/20 23 1:34 PM NEWSPAPER EDITOR documented as of this encounter Care Teams Building Maintenance Worker Relationship Specialty Start Date End Date Radha Tucker APNP [address] [place] [phone] PCP - General NURSE PRACTITIONER 12/30/20 Isael Khalil MD [facility]. [place] [address] [place], [place] [address] [place] Real Estate Operations Manager CARDIOVASCULAR DISEASE 04/28/17 Tee Fajardo MD [facility]. [place] [address] [place], [place] [phone] EP Real Estate Operations Manager CLINICAL CARDIAC ELECTROPHYSIOLOGY 08/30/18 documented as of this encounter
--- OUTSIDE RECORDS SUMMARY | 2024-05-02 01:16 | XMS_ITS | Referral Summary ---
Author Organization [facility] [address] [facility] Address [address] [place] [address] Care Team Providers Care Foreman/Project Manager Name Role Phone Radha Tucker Primary Care Provider + Encounters Date Type Department Care Team Description 04/27/2024 Telephone [facility] Gastroenterology [address] [place] [address] [place] [address] [place] [phone] Erica Linn RN Prior Auth 04/27/2024 Documentation [facility] Gastroenterology [address] [place] [address] [place] [address] [place] [phone] Erica Linn, SAMMI 04/17/2024 Telephone [facility] Diabetes and Endocrinology [address] [place] [address] Silvana Contreras NP Lab Orders 04/17/2024 9:00 AM METROLOGY TECHNICIAN Office Visit [facility] Diabetes and Endocrinology [address] [place] [phone] Silvana Contreras NP Hypothyroidism, postablative (Primary Dx) 04/16/2024 Documentation [facility] G[facility] [address] [place] [address] [place] [phone] Erica Linn RN 04/06/2024 Telephone [facility] [address] [place] [address] [place] [address] Erica Linn RN Prior Auth 04/05/2024 Telephone [facility] Gastroenterology [address] [place] [address] [place] [address] Erica Linn RN 03/29/2024 Orders Only [facility] [address] [place] [address] Oscar Todd MD Metabolic dysfunction-associated steatohepatitis (MASH) 03/23/2024 Telephone [facility] [address] [place] [address] [place] [address] Savita Heard Prior auth (zepbound); Liver Biopsy Request 03/23/2024 1:00 PM METROLOGY TECHNICIAN Procedure visit [facility]enter[facility] [address] [place] [address] [place] [address] Metabolic dysfunction-associated steatotic liver disease (MASLD) 03/23/2024 9:00 AM METROLOGY TECHNICIAN Office Visit [facility] Gastroenterology [address] [place] [address] [place] [address] Oscar Todd MD Metabolic dysfunction-associated steatohepatitis (MASH) (Primary Dx) 03/12/2024 Orders Only [facility] Gasteroenterology [address] [place] [address] [place] [address] Oscar Todd MD Metabolic dysfunction-associated steatotic liver disease (MASLD) (Primary Dx) from Last 3 Months Allergies Active Allergy Reactions Criticality Noted Date [...] 1 tablet (12.5 mg total) by mouth pipe manufacture supervisor before breakfast Active Linzess 72 mcg capsule Active amoxicillin 500 mg capsule TK FOUR [...] cancer 07/25/2015 Overview (10/06/2021): Colonoscopy due early 2016 Hypothyroidism, postablative 07/25/2015 Assessment & Plan (04/17/2024 9:13 AM METROLOGY TECHNICIAN): Chronic problem. Clinically & biochemically euthyroid on current Synthroid 100mcg daily. Aware to take 1st thing in morning, 30-60 minutes before food/drink/other medications. Will update labs. Verified that she uses [employer]. Aware to check results/results letter in [employer]. Will contact by phone if needed. Assessment & Plan (04/21/2023 9:59 AM METROLOGY TECHNICIAN): With low TSH Will update TFTs If TSH is still low, will lower Synthroid, to 100 mcg daily but 1/2 tab on Sundays Assessment & Plan (04/20/2022 1:48 PM METROLOGY TECHNICIAN): Continue Synthroid at current dose Assessment & Plan (10/06/2021 10:14 AM CDT): Stay on Synthroid, 100 mcg daily Osteoarthritis of knee, unspecified (CODE) 07/24 Uterine prolapse 07/25/2015 Vitamin B12 deficiency 07/25/2015 Vitamin D deficiency 07/25/2015 Insomnia 09/18/2014 Benign essential hypertension 07/02/2014 Resolved Problems Problem Noted Date Diagnosed Date Resolved Date Hypothyroidism 04/28/2017 04/16/2024 Overview (04/28/2017): Hypothyroidism Assessment & Plan (04/07/2021 4:30 PM METROLOGY TECHNICIAN): Continue with Synthroid 100 mcg daily Prescription [...] please. Assessment & Plan (05/25/2018 4:16 PM METROLOGY TECHNICIAN): Stop cytomel ( pt would prefer to [...] taken. Assessment & Plan (04/28/2017 9:52 AM METROLOGY TECHNICIAN): Continue Levothyroxine and Cytomel Take med regularly Immunizations Name Administration Dates Next Due Influenza, Quadrivalent, Spl it, Preservative Free, Intramuscular 12/19/2019,12/29/2018,12/11/2015 Tdap 12/29/2018,03/21/2008 ZOSTER LIVE 05/14/2020 ZOSTER Recombinant 12/19/2019 Social History Tobacco Use Types Packs/Day Years [...] on file Legal Sex Female 8:52 PM METROLOGY TECHNICIAN Gender Identity Not on file Sexual Orientation Not on file Last Filed Vital Signs Vital Sign Reading Time Taken Comments Blood Pressure 118/70 04/17/2024 8:58 AM METROLOGY TECHNICIAN Pulse 67 04/17/2024 8:58 AM METROLOGY TECHNICIAN Temperature 36.3 C (97.4 F) 03/23/2024 8:58 AM METROLOGY TECHNICIAN Respiratory Rate 16 04/17/2024 8:58 AM METROLOGY TECHNICIAN Oxygen Saturation 96% 03/23/2024 8:58 AM METROLOGY TECHNICIAN Inhaled Oxygen Concentration - - Weight 91.2 kg (201 lb) 04/17/2024 8:58 AM METROLOGY TECHNICIAN Height 170.2 cm (5' 7.01 ) 04/17/2024 8:58 AM CS T Body Mass Index 31.47 04/17/2024 8:58 AM METROLOGY TECHNICIAN Plan of Treatment Not on file Procedures Procedure Name Priority Date/Time Associated Diagnosis Comments T4, FREE Routine 04/27/2024 9:37 AM METROLOGY TECHNICIAN Hypothyroidism, postablative TSH Routine 04/27/2024 9:37 AM METROLOGY TECHNICIAN Hypothyroidism, postablative SURGICAL PATHOLOGY Routine 03/29/2024 10 :28 AM METROLOGY TECHNICIAN Metabolic dysfunction-associated steatohepatitis (MASH) LIVER ELASTOGRAPHY W/O IMAGING W/I&R Routine 03/23/2024 9:14 AM METROLOGY TECHNICIAN Metabolic dysfunction-associated steatotic liver disease (MASLD) from Last 3 Months Results * TSH (04/27/2024 9:37 AM METROLOGY TECHNICIAN) TSH 0.607 0.450 - 4.500 uIU/mL [facility] - 01 Blood 04/27/2024 9:37 AM METROLOGY TECHNICIAN 04/27/2024 Narrative [facility] - 04/28/2024 10:10 AM METROLOGY TECHNICIAN Performed at: [address] [place] [id number] Card Brusher: Parrish Hernandez PhD, Phone: [phone] Silvanacase Contreras RULING MACHINE OPERATOR LAB BLOOD ORDERABLES Leticia l Result Performing Organization Address [facility] [address]/[facility] Co de Phone Number [facility] - 01 * T4, free (04/27/2024 9:37 AM METROLOGY TECHNICIAN) T4,Free(Direct) 1.69 0.82 - 1.77 ng/dL [facility] - 01 Blood 04/27/2024 9:37 AM METROLOGY TECHNICIAN 04/27/2024 Narrative [facility] - 04/28/2024 10:10 AM METROLOGY TECHNICIAN Performed at: [address] [place] [id number] Card Brusher: Parrish Hernandez PhD, Phone: [phone] Silvanacase Contreras RULING MACHINE OPERATOR LAB BLOOD ORDERABLES Leticia l Result Performing Organization Address [facility] [address]/[facility] de Phone Number [facility] - * Surgical pathology (03/29/2024 10:28 AM METROLOGY TECHNICIAN) Tissue (Miscellaneous) 03/29/2024 10:28 AM METROLOGY TECHNICIAN 03/29/2024 10:28 AM METROLOGY TECHNICIAN Narrative [facility] - 04/04/2024 6:08 PM METROLOGY TECHNICIAN EPIC results best viewed via link to PDF [facility] Pathology Consult Service Jose Rafael [address], [place] [address] Note to Patients: This report [...] SURGICAL PATHOLOGY REPORT * Consult Report * [facility] is providing an additional review of previously collected tissue. FINAL Patient Name: NATALIE DASILVA Address: [address] [place] [id number] Gender: F : 1955 (Age: 69) Hospital #: [id number] Patient Type: EDMUNDO Location: UNKNOWN Taken: 03/29/2024 Received: 03/29/2024 Accessioned: 03/29/2024 Reported: 04/04/2024 Physician(s): Oscar Todd [facility] Department of Pathology [address] [place] [address] P: [phone] F: [phone] Histology: [phone] Diagnosis: Consult material received from [place], [place] (OSC: [id number], A1; 01/19/2024). Liver, [place], needle core biopsy: - Minimal macrovesicular steatosis involving < 5% of hepatocytes. - Focal mild portal inflammation. - Trichrome and reticulin stains provided show no significant fibrosis. - Iron stain provided is negative. - PAS-D stain provided shows no intracytoplasmic globules in periportal hepatocytes. [facility]/04/04/2024 13:03 By this signature, I attest that the above diagnosis is based upon my personal examination of the slides(and/or other material indicated in the diagnosis). Ruthie Stern MD, PHD Report Electronically Reviewed and Signed Out By Ruthie Stern MD, PHD 04/04/2024 18:08:55 Diagnosis Comment Thank you for sharing this case with the [facility] Liver/GI pathology service. We are in essential agreement with the diagnosis from [facility]. Microscopic Description and Comment: Unless gross-only is specified, the final diagnosis for each specimen is based on a microscopic examination of each tissue sample. History: The patient is a 69-year-old woman with history of metabolic dysfunction- associated steatohepatitis. Materials Received: Received for review are thirteen slides labeled [id number], accompanied by a corresponding pathology report. The material originates from [place], [place]. Selected slide(s) may be digitally scanned for our files, and all materials are returned to the referring institution, along with a copy of our final report. Any testing required for diagnostic purposes was performed in the Department of Pathology and Immunology at [facility], [address] [place] [id number] CLIA # [id number] The performance characteristics of the testing cited in this report (if any) were determined by the [facility] Department of Pathology and Immunology [facility], as part of an ongoing quality control auditor program and in compliance with federally mandated [...] and the performance characteristics determined by the [facility], [facility] Department of Pathology and Immunology. It has not been cleared or approved by the U.S. Food and Drug Administration. Any test designated as LDT was developed and its performance characteristics determined by [facility]. It has not been cleared or approved by the FDA. This test is used for clinical purposes and should not be regarded as investigational or for research. Report images and/or scanned reports, if included, only viewable in PDF version of report. Oscar Todd MD LAB PATHOLOGY ORDERABLES Fi nal Result [facility] [address] [address] * Liver Elastography w/o Imaging W/I&R -[facility] (All Locations) (03/23/2024 9:14 AMCST) Anatomical Region Laterality Modality Other Oscar Todd MD GI PROCEDURE ORDERABLES Fin al Result from Last 3 Months Insurance [employer] CHOICE MEDICARE PPO [employer] CHO[employer] MEDICARE PPO [employer] MEDICARE PPO Care Teams Foreman/Project Manager Relationship Specialty Start Date End Date Radha Tucker PA [address] [place] [id number] PCP - General Nurse Practitioner 10/06/23
--- OUTSIDE RECORDS SUMMARY | 2024-05-02 01:16 | XMS_ITS | Encounter Summary ---
Author Organization [facility] Address [facility] [place] [address] Care Team Providers Care Wheel Worker Name Role Phone Paul Finley DO Primary Care Provider + [phone] Isael Khalil MD Unavailable [phone] Tee Fajardo MD Unavailable Yehuda Carrasco MD Primary Care Provider [phone] Radha Tucker Primary Care Provider [phone] Encounter Details Date Type Department Care Team (Late st Contact Info) Description 04/20/2019 [employer] Message Enc [facility] Medical Group Family Medicine - [address] [address] Paul Finley DO [address] [address] RE: Other Social History Tobacco Use Types Packs/Day Years Used Date Smoking Tobacco: Never Smokeless Tobacco: Never Alcohol Use Standard Drinks/Week Comments No 0 (1 standard drink = 0.6 oz pur e alcohol) Comments No Sex and Gender Information Value Date Recorded Sex Assigned at Not on file Legal Sex Female 3:25 PM SAFETY AND SECURITY MANAGER Gender Identity Female 03/31/2021 3:03 PM SAFETY AND SECURITY MANAGER Sexual Orientation Straight 03/31/2021 3: 03 PM SAFETY AND SECURITY MANAGER Occupation Industry Job Start Date Job End Date Not on file Not on file Not on file Not on file documented as of this encounter Functional Status * RETIRED Are you deaf or do you have serious difficulty hearing Answer Date of Assessment Author Status No 01/26/2019 8:56 AM SAFETY AND SECURITY MANAGER Activ e * RETIRED Are you blind or do you have serious difficulty seeing, even when wearing glasses? Answer Date of Assessment Author Status No 01/26/2019 8:56 AM SAFETY AND SECURITY MANAGER Activ e * Do you have serious [...] st Contact Info) Description 05/07/2024 1:00 PM SAFETY AND SECURITY MANAGER Office Visit [facility] - [address], [address] [place] [phone] Radha Tucker, LUCIO [address] [place] [address] Raj Barbour MD [address] [place] [address] 01/25/2025 9:40 AM SAFETY AND SECURITY MANAGER Office Visit [facility] - [address] [place] [phone] Nhan Garcia MD 3 [facility] [address] [place] [address] 03/05/2025 9:00 AM SAFETY AND SECURITY MANAGER Office Visit [facility] THREE [facility], [facility] [address] [place], [place] [address] Isael Khalil MD Three [facility]. [facility] [address] [place] [address] documented as of this encounter Visit Diagnoses Not on filedocumented in this encounter Additional Health Concerns Infection Onset Date Last Indicated Resolved Time COVID-19 Rule Out 08/06/2019 08/06/2019 08/08/2019 10:44 AM CDT COVID-19 Rule Out 02/29/2020 02/29/2020 03/01/2020 7:50 PM SAFETY AND SECURITY MANAGER COVID-19 Rule Out 03/19/2021 03/19/2021 03/19/2021 2:05 PM SAFETY AND SECURITY MANAGER COVID-19 Rule Out 03/19/2021 03/19/2021 03/21/2021 12:00 AM SAFETY AND SECURITY MANAGER COVID-19 Rule Out 12/01/2021 12/01/2021 12/01/2021 11:38 PM CDT documented as of this encounter Care Teams Wheel Worker Relationship Specialty Start Date End Date Paul Finley DO PCP - General FAMILY PRACTICE 08/20/15 06/03/19 Yehuda Carrasco MD Three [facility]. [facility] [address] [place], [place] [phone] PCP - General FAMILY PRACTICE 06/04/19 12/29/20 Radha Tucker APNP [address] [place] [address] PCP - General NURSE PRACTITIONER 12/30/20 Isael Khalil MD Three [facility]. [address] [id number] [place] Poundmaster CARDIOVASCULAR DISEASE 04/28/17 Tee Fajardo MD [facility]. [place] [address] [place], [place] [phone] EP Poundmaster CLINICAL CARDIAC ELECTROPHYSIOLOGY 08/30/18 documented as of this encounter
--- OUTSIDE RECORDS SUMMARY | 2024-05-02 01:16 | XMS_ITS | Encounter Summary ---
Author Organization [facility] Address [facility] [place] [address] Care Team Providers Care Commercial Specialist Name Role Phone Isael Khalil MD Unavailable [phone] Tee Fajardo MD Unavailable Radha Tucker Primary Care Provider [phone] Encounter Details Date Type Department Care Team (Late st Contact Info) Description 03/08/2024 [employer] Message Enc [facility] Medical Group Family & Internal Medicine [facility] [address] [place] [phone] [facility] results Social History Tobacco Use Types Packs/Day [...] on file Legal Sex Female 3:25 PM BOOM CAT OPERATOR Gender Identity Female 03/31/2021 3:03 PM BOOM CAT OPERATOR Sexual Orientation Straight 03/31/2021 3: 03 PM BOOM CAT OPERATOR 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 Not on file Not [...] st Contact Info) Description 05/07/2024 1:00 PM BOOM CAT OPERATOR Office Visit [facility] - [address], [address] [place] [address] Radha Tucker, LUCIO [address] [place] [address] Raj Barbour MD [address] [place] [address] 01/25/2025 9:40 AM BOOM CAT OPERATOR [facility] [address] [place] [address] Nhan Garcia MD 3 [facility] [place] [address] [place] [address] 03/05/2025 9:00 AM BOOM CAT OPERATOR Office Visit [facility] [place] [address] [place] [address] Isael Khalil MD Three [facility]. [place] [address] [place] [address] documented as of this encounter Visit Diagnoses Not on filedocumented in this encounter Additional Health Concerns Assessment Noted Time PHQ-9 Depression Total Score: 0 02/23/20 23 1:34 PM BOOM CAT OPERATOR documented as of this encounter Care Teams Commercial Specialist Relationship Specialty Start Date End Date Radha Tucker APNP [address] [place] [address] PCP - General NURSE PRACTITIONER 12/30/20 Isael Khalil MD [facility]. [place] [address] [place] [address] [place] Oil Lease Broker CARDIOVASCULAR DISEASE 04/28/17 Tee Fajardo MD [facility]. [place] [address] [place], [place] [address] EP Oil Lease Broker CLINICAL CARDIAC ELECTROPHYSIOLOGY 08/30/18 documented as of this encounter
--- OUTSIDE RECORDS SUMMARY | 2024-05-02 01:16 | XMS_ITS | Encounter Summary ---
Author Organization [facility] Address Pending [facility] to [facility] [place] [address] Care Team Providers Care Associate Application Developer Name Role Phone Isael Khalil MD Unavailable [phone] Tee Fajardo MD Unavailable Radha Tucker Primary Care Provider [phone] Encounter Details Date Type Department Care Team (Late st Contact Info) Description 09/16/2021 MyChart Message Enc [facility] Medical Group Multispecialty Care - [facility] [address] [facility] [place] [address] Farzaneh Alejandre NP 3 [facility]. 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 No / Unsure 09/16/2021 1:30 PM CDT documented as of this encounter [...] st Contact Info) Description 05/07/2024 1:00 PM CERAMIC WORKER Office Visit [facility] Medical Group Multispecialty Care - [facility] [address] [facility] [place] [phone] Radha Tucker APNP [address] [place] [address] Raj Barbour MD [address] [place] [address] 01/25/2025 9:40 AM CERAMIC WORKER Office Visit [facility] Medical Group Multispecialty Care - [facility] [address] [facility] [facility] [place] [address] Nhan Garcia MD [address] [facility] [place] [address] [place] [address] 03/05/2025 9:00 AM CERAMIC WORKER Office Visit [facility] THREE [facility], [place] [address] [place], [place] [address] Isael Khalil MD Three [facility]. [place] [address] [place], [place] [address] documented as of this encounter Visit Diagnoses Not on filedocumented in this encounter Additional Health Concerns Infection Onset Date Last Indicated Resolved Time COVID-19 Rule Out 12/01/2021 12/01/2021 12/01/2021 11:38 PM CDT Assessment Noted Time PHQ-9 Depression Total Score: 0 06/04/19 22 8:33 AM CDT documented as of this encounter Care Teams Associate Application Developer Relationship Specialty Start Date End Date Radha Tucker APNP [address] [place] [address] PCP - General NURSE PRACTITIONER 12/30/20 Isael Khalil MD Three [facility]. [place] [address] [place], [place] [address] [place] Supervisor Maintenance CARDIOVASCULAR DISEASE 04/28/17 Tee Fajardo MD [facility]. [place] [address] [place], [place] [address] EP Supervisor Maintenance CLINICAL CARDIAC ELECTROPHYSIOLOGY 08/30/18 documented as of this encounter
--- OUTSIDE RECORDS SUMMARY | 2024-05-02 01:16 | XMS_ITS | Encounter Summary ---
Author Organization [facility] Address [address] [place] [address] Care Team Providers Care Clinical Case Manager Name Role Phone Isael Khalil MD Unavailable [phone] Tee Fajardo MD Unavailable Radha Tucker Primary Care Provider [phone] Reason for Visit * Reason Onset Date Comments Question 02/22/2024 Encounter Details Date Type Department Care Team (Late st Contact Info) Description 02/22/2024 Pathway [employer] Message Enc [facility] Medical Group Family & Internal Medicine [facility] [address] [place] [address] Radha Tucker APNP [address] [place] [address] Right ring finger Social History Tobacco Use Types Packs/Day [...] on file Legal Sex Female 3:25 PM PIPE STEM REPAIRER Gender Identity Female 03/31/2021 3:03 PM PIPE STEM REPAIRER Sexual Orientation Straight 03/31/2021 3: 03 PM PIPE STEM REPAIRER 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 Not [...] encounter Progress Notes * LUCIO Hunter - 03/06/2024 11:12 AM CST Yes, xray is fine STEM REPAIRER documented in this encounter Plan of Treatment Upcoming Encounters Date Type Department Care Team (Late st Contact Info) Description 05/07/2024 1:00 PM PIPE STEM REPAIRER Office Visit [facility] Medical Group Multispecialty Care - [address], [address] [place] [address] Radha Tucker APNP [address] [place] [address] Raj Barbour MD 3 [place] [address] 01/25/2025 9:40 AM PIPE STEM REPAIRER Office Visit [facility] Multispecialty Care - [facility] 3 [facility] [address] [place] [address] Nhan Garcia MD 3 [facility] [place] [address] [place] [address] 03/05/2025 9:00 AM PIPE STEM REPAIRER [facility] THREE [facility], [place] [address] [place] [address] Isael Khalil MD Three [facility]. [place] [address] [place] [address] documented as of this encounter Results * XR HAND RT 3V (03/08/2024 10:36 AM PIPE STEM REPAIRER) Anatomical Region Laterality Modality Hand Radiographic Maureen ging 03/08/2024 10:2 7 AM PIPE STEM REPAIRER Narrative 03/11/2024 8:35 AM PIPE STEM REPAIRER [facility] Family and Internal Medicine - [address] [address] Procedure(s): XR HAND RT 3V Date of service: 03/08/2024 10:27 AM Provided clinical information: 69 years, Female, pain and numbness in fingertips of right hand. pt. states rt. 4th digit pain/zinging sensation [id number]. states can see all the little veins. no injury Procedure and materials: 3 views right hand. Comparison studies: None Findings: DIP joint space narrowing involving the second through fifth digits and PIP joint space narrowing involving the second and fifth digit. Interphalangeal joint space narrowing of the first digit. Carpal metacarpal joint space narrowing of the first digit. Osseous structures of the right hand are intact. Osteophytes are present but the bases of the distal phalanges of the 5 digits. No fracture, dislocation or acute bony abnormality. No periosteal reaction. No prominent osteolytic changes. IMPRESSION: Diffuse degenerative changes are present about the right hand. Referred By: Interpreted By: Naveed Connelly MD, 03/11/2024 8:33 AM Procedure Note Naveed Connelly MD - 03/11/2024 [facility] Medical Group Family [place] [address] Procedure(s): XR HAND RT 3V Date of service: 03/08/2024 10:27 AM Provided clinical information: 69 years, Female, pain and numbness infingertips of right hand. pt. states rt. 4th digit pain/zinging sensation [id number]. states can seeall the little veins. no injury Procedure and materials: 3 views right hand. Comparison studies: None Findings: DIP joint space narrowing involving the second through fifth digits andPIP joint space narrowing involving the second and fifth digit. Interphalangeal joint space narrowing of the first digit. Carpal metacarpal joint space narrowing of the first digit. Osseous structures of the right hand are intact. Osteophytes are presentbut the bases of the distal phalanges of the 5 digits. No fracture, dislocation or acute bony abnormality. No periostealreaction. No prominent osteolytic changes. IMPRESSION: Diffuse degenerative changes are present about the right hand. Referred By: Interpreted By: Naveed Connelly MD, 03/11/2024 8:33 AM [facility] Final Resul t documented in this encounter Visit Diagnoses Diagnosis Numbness and tingling in right hand- Primary Disturbance of skin sensation Hand pain, right Pain in limb documented in this encounter Additional Health Concerns Assessment Noted Time PHQ-9 Depression Total Score: 0 02/23/20 23 1:34 PM PIPE STEM REPAIRER documented as of this encounter Care Teams Clinical Case Manager Relationship Specialty Start Date End Date Radha Tucker APNP [address] [place] [address] PCP - General NURSE PRACTITIONER 12/30/20 Isael Khalil MD [address] [id number] [facility] Commercial Marketing Specialist CARDIOVASCULAR DISEASE 04/28/17 Tee Fajardo MD [facility] [address] [place] [id number] EP Commercial Marketing Specialist CLINICAL CARDIAC ELECTROPHYSIOLOGY 08/30/18 documented as of this encounter
--- OUTSIDE RECORDS SUMMARY | 2024-05-02 01:16 | XMS_ITS | Encounter Summary ---
Author Organization [facility] Address [facility] [place] [address] Care Team Providers Care Jewelry Bench Worker Name Role Phone Isael Khalil MD Unavailable [phone] Tee Fajardo MD Unavailable Yehuda Carrasco MD Primary Care Provider [phone] Radha Tucker Primary Care Provider [phone] Encounter Details Date Type Department Care Team (Late st Contact Info) Description 03/12/2020 MyChart Message Enc [facility] Medical Group Multispecialty Care - [facility] 3 [facility], [address] [phone] Alma Rosa Kan MD 3 [facility] [address] [place], [place] [id number] Test Results Social History Tobacco Use Types Packs/Day Years Used Date Smoking Tobacco: Never Smokeless Tobacco: Never Alcohol Use Standard Drinks/Week Comments No 0 (1 standard drink = 0.6 oz pur e alcohol) Comments No Sex and Gender Information Value Date Recorded Sex Assigned at Not on file Legal Sex Female 3:25 PM FISH CUTTER Gender Identity Female 03/31/2021 3:03 PM FISH CUTTER Sexual Orientation Straight 03/31/2021 3: 03 PM FISH CUTTER Occupation Industry Job Start Date Job End Date Not on file Not on file Not on file Not on file COVID-19 Exposure Response Date Recorded In the last month, have you been in contact with someone who was confirmed or suspected to have Coronavirus / COVID-19? No / Unsure 03/10/2020 3:10 PM FISH CUTTER documented as of this encounter Functional Status [...] st Contact Info) Description 05/07/2024 1:00 PM FISH CUTTER Office Visit [facility] Medical Group Multispecialty Care - [facility] [address] [facility], [address] [place] [address] Radha Tucker, LUCIO [address] [place] [address] Raj Barbour MD 3 [place] [address] 01/25/2025 9:40 AM FISH CUTTER Office Visit [facility] Medical Group Multispecialty Care - [facility] 3 [facility] [address] [place] [address] Nhan Garcia MD 3 [facility] [place] [address] [place] [address] 03/05/2025 9:00 AM FISH CUTTER Office Visit [facility] [address] [facility], [place] [place] [address] Isael Khalil MD Three [facility]. [place] [address] [place] [address] documented as of this encounter Visit Diagnoses Not on filedocumented in this encounter Additional Health Concerns Infection Onset Date Last Indicated Resolved Time COVID-19 Rule Out 03/19/2021 03/19/2021 03/19/2021 2:05 PM FISH CUTTER COVID-19 Rule Out 03/19/2021 03/19/2021 03/21/2021 12:00 AM FISH CUTTER COVID-19 Rule Out 12/01/2021 12/01/2021 12/01/2021 11:38 PM CDT documented as of this encounter Care Teams Jewelry Bench Worker Relationship Specialty Start Date End Date Yehuda Carrasco MD Three [facility]. [place] [address] [place] [address] PCP - General FAMILY PRACTICE 06/04/19 12/29/20 Radha Tucker APNP [address] [place] [address] PCP - General NURSE PRACTITIONER 12/30/20 Isael Khalil MD [facility]. [place] [address] [place] [address] [employer] Chief Creative Officer CARDIOVASCULAR DISEASE 04/28/17 Tee Fajardo MD [facility] [address] [place] [address] EP Global Chief Creative Officer CLINICAL CARDIAC ELECTROPHYSIOLOGY 08/30/18 documented as of this encounter
--- OUTSIDE RECORDS SUMMARY | 2024-05-02 01:16 | XMS_ITS | Encounter Summary ---
Author Organization [facility] Address [facility] [place] [address] Care Team Providers Care Film Numberer Name Role Phone Isael Khalil MD Unavailable [phone] Tee Fajardo MD Unavailable Radha Tucker Primary Care Provider [phone] Encounter Details Date Type Department Care Team (Late st Contact Info) Description 03/03/2023 Byliner Message Enc [facility] [address] [place], [place] [id number] Isael Khalil MD Three [facility]. 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 on file Not [...] Author Status No 08/09/2019 2:57 PM CDT Kalyeigh Pickens RN Active * Because of a [...] Progress Notes * Yoly Mondragon NP - 03/04/2023 4:20 PM CST FYI ER VAULT * Chandni Huff RN - 03/04/2023 9:11 AM CST See below ER VAULT documented in this encounter Plan of Treatment Upcoming Encounters Date Type Department Care Team (Late st Contact Info) Description 05/07/2024 1:00 PM TELLER VAULT [facility] 3 [facility], [address] [place] [address] Radha Tucker APNP [address] [place] [address] Raj Barbour MD 3 [facility] [place] [address] 01/25/2025 9:40 AM TELLER VAULT [facility] 3 [facility] [address] [place] [address] Nhan Garcia MD [address] [place] [address] [place] [address] [place] [address] 03/05/2025 9:00 AM TELLER VAULT Office Visit [facility], [place] [place] [address] Isael Khalil MD [facility]. [place] [address] [place] [address] documented as of this encounter Visit Diagnoses Not on filedocumented in this encounter Additional Health Concerns Assessment Noted Time PHQ-9 Depression Total Score: 0 02/23/20 23 1:34 PM TELLER VAULT documented as of this encounter Care Teams Film Numberer Relationship Specialty Start Date End Date Radha Tucker APNP [address] [place] [address] PCP - General NURSE PRACTITIONER 12/30/20 Isael Khalil MD [facility]. [place] [address] [place] [address] [place] Landscaping Supervisor CARDIOVASCULAR DISEASE 04/28/17 Tee Fajardo MD [address] [facility] [address] [place], [place] [address] EP Landscaping Supervisor CLINICAL CARDIAC ELECTROPHYSIOLOGY 08/30/18 documented as of this encounter
--- OUTSIDE RECORDS SUMMARY | 2024-05-02 01:16 | XMS_ITS | Encounter Summary ---
Author Organization [facility] Address [facility] [place] [address] Care Team Providers Care Stator Connector Name Role Phone Isael Khalil MD Unavailable [phone] Tee Fajardo MD Unavailable Yehuda Carrasco MD Primary Care Provider [phone] Radha Tucker Primary Care Provider [phone] Encounter Details Date Type Department Care Team (Latest Contact Info) Description 10/22/2019 MyCMusicplayrt Message Enc [facility] Medical Group Multispecialty Care - [facility] 3 [facility], [address] [place] [address] Esha Diaz APRN [address] [facility] [address] [place], [place] [phone] RE: Medication Questions Social History Tobacco Use Types Packs/Day Years Used Date Smoking Tobacco: Never Smokeless Tobacco: Never Alcohol Use Standard Drinks/Week Comments No 0 (1 standard drink = 0.6 oz pur e alcohol) Comments No Sex and Gender Information Value Date Recorded Sex Assigned at Not on file Legal Sex Female 3:25 PM CAR HEAD LINER INSTALLER Gender Identity Female 03/31/2021 3:03 PM CAR HEAD LINER INSTALLER Sexual Orientation Straight 03/31/2021 3: 03 PM CAR HEAD LINER INSTALLER Occupation Industry Job Start Date Job End Date Not on file Not on file Not on file Not on file COVID-19 Exposure Response Date Recorded In the last month, have you been in contact with someone who was confirmed or suspected to have Coronavirus / COVID-19? No / Unsure 10/25/2019 9:14 AM CDT documented as of this encounter [...] st Contact Info) Description 05/07/2024 1:00 PM CAR HEAD LINER INSTALLER Office Visit [facility] Medical Group Multispecialty Care - [facility] 3 [facility], [address] [place] [address] Radha Tucker, LUCIO [address] [place] [address] Raj Barbour MD 3 [place] [address] 01/25/2025 9:40 AM CAR HEAD LINER INSTALLER Office Visit [facility] Medical Group Multispecialty Care - [facility] 3 [facility] [address] [place] [address] Nhan Garcia MD 3 [facility] [place] [place] [address] 03/05/2025 9:00 AM CAR HEAD LINER INSTALLER Office Visit [facility] THREE [facility], [place] [place] [address] Isael Khalil MD Three [facility]. [place] [address] [place], [place] [address] documented as of this encounter Visit Diagnoses Not on filedocumented in this encounter Additional Health Concerns Infection Onset Date Last Indicated Resolved Time COVID-19 Rule Out 02/29/2020 02/29/2020 03/01/2020 7:50 PM CAR HEAD LINER INSTALLER COVID-19 Rule Out 03/19/2021 03/19/2021 03/19/2021 2:05 PM CAR HEAD LINER INSTALLER COVID-19 Rule Out 03/19/2021 03/19/2021 03/21/2021 12:00 AM CAR HEAD LINER INSTALLER COVID-19 Rule Out 12/01/2021 12/01/2021 12/01/2021 11:38 PM CDT documented as of this encounter Care Teams Stator Connector Relationship Specialty Start Date End Date Yehuda Carrasco MD Three [facility]. [place] [address] [place] [address] PCP - General FAMILY PRACTICE 06/04/19 12/29/20 Radha Tucker APNP [address] [place] [address] PCP - General NURSE PRACTITIONER 12/30/20 Isael Khalil MD Three [facility] [address] [place] [address] [place] [address] [place] Crap Shooter CARDIOVASCULAR DISEASE 04/28/17 Tee Fajardo MD Three [facility] [place] [address] [place], [place] [address] EP Crap Shooter CLINICAL CARDIAC ELECTROPHYSIOLOGY 08/30/18 documented as of this encounter
--- OUTSIDE RECORDS SUMMARY | 2024-05-02 01:16 | XMS_ITS | Encounter Summary ---
Author Organization [facility] Address [facility] [place] [address] Care Team Providers Care Air Hoist Operator Name Role Phone Isael Khalil MD Unavailable [phone] Tee Fajardo MD Unavailable Radha Tucker Primary Care Provider [phone] Encounter Details Date Type Department Care Team (Late st Contact Info) Description 01/13/2024 [employer] Message Enc [place] [facility] [address] [facility] [address] [place], [place] [phone] Isael Khalil MD Three [facility]. 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 Not on file Not [...] st Contact Info) Description 05/07/2024 1:00 PM MILL CONTROL OPERATOR Office Visit [facility] Medical Group Multispecialty Care - [facility] 3 [facility], [address] [place] [address] Radha Tucker, LUCOI [address] [place] [address] Raj Barbour MD 3 [place] [address] 01/25/2025 9:40 AM MILL CONTROL OPERATOR Office Visit [facility] Medical Group Multispecialty Care - [facility] [address] [place] [address] Nhan Garcia MD [facility] [place] [address] [place] [address] 03/05/2025 9:00 AM MILL CONTROL OPERATOR Office Visit [place] [facility] [facility] [place] [place], [place] [address] Isael Khalil MD Three [facility]. [place] [address] [place], [place] [address] documented as of this encounter Visit Diagnoses Not on filedocumented in this encounter Additional Health Concerns Assessment Noted Time PHQ-9 Depression Total Score: 0 02/23/20 23 1:34 PM MILL CONTROL OPERATOR documented as of this encounter Care Teams Air Hoist Operator Relationship Specialty Start Date End Date Radha Tucker APNP [address] [place] [address] PCP - General NURSE PRACTITIONER 12/30/20 Isael Khalil MD Three [facility]. [place] [address] [place], [place] [address] [place] Spinning Mule Tender CARDIOVASCULAR DISEASE 04/28/17 Tee Fajardo MD [facility]. [place] [address] [place], [place] [address] EP Spinning Mule Tender CLINICAL CARDIAC ELECTROPHYSIOLOGY 08/30/18 documented as of this encounter
--- OUTSIDE RECORDS SUMMARY | 2024-05-02 01:16 | XMS_ITS | Encounter Summary ---
Author Organization [facility] Address [facility] [place] [address] Care Team Providers Care Addiction Nurse Name Role Phone Isael Khalil MD Unavailable [phone] Tee Fajardo MD Unavailable Yehuda Carrasco MD Primary Care Provider [phone] Radha Tucker Primary Care Provider [phone] Encounter Details Date Type Department Care Team (Late st Contact Info) Description 07/13/2019 [email or web address] Message Enc [facility] Medical Group Family Medicine - [place] [address] [place] [address] Aide Vieyra NP 5 [place] [address] Question Social History Tobacco Use Types Packs/Day Years Used Date Smoking Tobacco: Never Smokeless Tobacco: Never Alcohol Use Standard Drinks/Week Comments No 0 (1 standard drink = 0.6 oz pur e alcohol) Comments No Sex and Gender Information Value Date Recorded Sex Assigned at Not on file Legal Sex Female 3:25 PM ASSOCIATE ACCOUNT MANAGER Gender Identity Female 03/31/2021 3:03 PM ASSOCIATE ACCOUNT MANAGER Sexual Orientation Straight 03/31/2021 3: 03 PM ASSOCIATE ACCOUNT MANAGER Occupation Industry Job Start Date Job End Date Not on file Not on file Not on file Not on file documented as of this encounter Functional Status * RETIRED Are you deaf or do you have serious difficulty hearing Answer Date of Assessment Author Status No 01/26/2019 8:56 AM ASSOCIATE ACCOUNT MANAGER Activ e * RETIRED Are you blind or do you have serious difficulty seeing, even when wearing glasses? Answer Date of Assessment Author Status No 01/26/2019 8:56 AM ASSOCIATE ACCOUNT MANAGER Activ e * Do you have [...] Progress Notes * Aide Vieyra NP - 07/13/2019 1:26 PM CDT I can do a video call to discuss vaccines. CDC guidelines are Pneumonia vaccine 13 at age 65 and a year later needs 23 unless some other disease process such as DM, smoking, and others I can discuss with her. Yes to shingles, she can get this at [facility]. Thank you documented in this encounter Plan of Treatment Upcoming Encounters Date Type Department Care Team (Late st Contact Info) Description 05/07/2024 1:00 PM ASSOCIATE ACCOUNT MANAGER Office Visit [facility] Medical Group Multispecialty Care - [facility] 3 [facility], [address] [place] [address] Radha Tucker APNP [address] [place] [address] Raj Barbour MD 3 [place] [address] 01/25/2025 9:40 AM ASSOCIATE ACCOUNT MANAGER Office Visit [facility] Medical Group Multispecialty Care - [facility] 3 [facility] [address] [place] [address] Nhan Garcia MD 3 [facility] [place] [address] [place] [address] 03/05/2025 9:00 AM ASSOCIATE ACCOUNT MANAGER Office Visit [facility] [facility] THREE [facility], [place] [place] [address] Isael Khalil MD Three [facility]. [place] [address] [place] [address] documented as of this encounter Visit Diagnoses Not on filedocumented in this encounter Additional Health Concerns Infection Onset Date Last Indicated Resolved Time COVID-19 Rule Out 08/06/2019 08/06/2019 08/08/2019 10:44 AM CDT COVID-19 Rule Out 02/29/2020 02/29/2020 03/01/2020 7:50 PM ASSOCIATE ACCOUNT MANAGER COVID-19 Rule Out 03/19/2021 03/19/2021 03/19/2021 2:05 PM ASSOCIATE ACCOUNT MANAGER COVID-19 Rule Out 03/19/2021 03/19/2021 03/21/2021 12:00 AM ASSOCIATE ACCOUNT MANAGER COVID-19 Rule Out 12/01/2021 12/01/2021 12/01/2021 11:38 PM CDT documented as of this encounter Care Teams Addiction Nurse Relationship Specialty Start Date End Date Yehuda Carrasco MD Three [facility]. [place] [address] [place] [address] PCP - General FAMILY PRACTICE 06/04/19 12/29/20 Radha Tucker APNP [address] [place] [address] PCP - General NURSE PRACTITIONER 12/30/20 Isael Khalil MD Three [facility]. [address] [id number] [place] Mental Health Worker CARDIOVASCULAR DISEASE 04/28/17 Tee Fajardo MD Three [facility]. [address] [id number] EP Mental Health Worker CLINICAL CARDIAC ELECTROPHYSIOLOGY 08/30/18 documented as of this encounter
--- OUTSIDE RECORDS SUMMARY | 2024-05-02 01:16 | XMS_ITS | Encounter Summary ---
Author Organization [facility] Address [facility] [place] [address] Care Team Providers Care Roll Off Driver Name Role Phone Isael Khalil MD Unavailable [phone] Tee Fajardo MD Unavailable Yehuda Carrasco MD Primary Care Provider [phone] Radha Tucker Primary Care Provider [phone] Encounter Details Date Type Department Care Team (Late st Contact Info) Description 06/18/2019 Theravancet Message Enc [facility] Medical Group Family Medicine - [place] [address] [place] [address] Aide Vieyra NP [address] [place] [address] Question Social History Tobacco Use Types Packs/Day Years Used Date Smoking Tobacco: Never Smokeless Tobacco: Never Alcohol Use Standard Drinks/Week Comments No 0 (1 standard drink = 0.6 oz pur e alcohol) Comments No Sex and Gender Information Value Date Recorded Sex Assigned at Not on file Legal Sex Female 3:25 PM PROPERTY CLAIM REP Gender Identity Female 03/31/2021 3:03 PM PROPERTY CLAIM REP Sexual Orientation Straight 03/31/2021 3: 03 PM PROPERTY CLAIM REP Occupation Industry Job Start Date Job End Date Not on file Not on file Not on file Not on file documented as of this encounter Functional Status * RETIRED Are you deaf or do you have serious difficulty hearing Answer Date of Assessment Author Status No 01/26/2019 8:56 AM PROPERTY CLAIM REP Activ e * RETIRED Are you blind or do you have serious difficulty seeing, even when wearing glasses? Answer Date of Assessment Author Status No 01/26/2019 8:56 AM PROPERTY CLAIM REP Activ e * Do you have serious [...] Progress Notes * Aide Vieyra NP - 06/18/2019 9:58 AM CDT I spoke to pt on the phone. She is not having any Sx now. Feels fine. She never did have a fever or difficulty voiding. She had left flank area No chest pain, no shortness of breath, no changes in vision, no palpitations, no headache She did have some sweating through the pain No mid or upper back pain Discussed kidney stone verse muscle spasm. Since her Sx resolved completely she does not want an office visit to avoid exposure to the public during self distancing. Now she has no Sx, no pain, no difficulty with bowel/bladder/ambulating/activity. Feeling good. Stretch, hydrate, and apply Ice Report if Sx return Seek medical attention for extreme pain * Sheila Son MA - 06/18/2019 7:09 AM CDT Would you like to see patient in office for pain? documented in this encounter Plan of Treatment Upcoming Encounters Date Type Department Care Team (Late st Contact Info) Description 05/07/2024 1:00 PM PROPERTY CLAIM REP [facility] 3 [facility], [address] [place] [address] Radha Tucker, APNP [address] [place] [address] Raj Barbour MD 3 [facility] [place] [address] 01/25/2025 9:40 AM PROPERTY CLAIM REP Office Visit [facility] Care - [facility] 3 [facility] [place] [address] Nhan Garcia MD 3 [facility] [address] [place] [address] 03/05/2025 9:00 AM PROPERTY CLAIM REP Office Visit [facility] THREE [facility], [address] [place] [address] Isael Khalil MD [facility]. [address] [place] [address] documented as of this encounter Visit Diagnoses Not on filedocumented in this encounter Additional Health Concerns Infection Onset Date Last Indicated Resolved Time COVID-19 Rule Out 08/06/2019 08/06/2019 08/08/2019 10:44 AM CDT COVID-19 Rule Out 02/29/2020 02/29/2020 03/01/2020 7:50 PM PROPERTY CLAIM REP COVID-19 Rule Out 03/19/2021 03/19/2021 03/19/2021 2:05 PM PROPERTY CLAIM REP COVID-19 Rule Out 03/19/2021 03/19/2021 03/21/2021 12:00 AM PROPERTY CLAIM REP COVID-19 Rule Out 12/01/2021 12/01/2021 12/01/2021 11:38 PM CDT documented as of this encounter Care Teams Roll Off Driver Relationship Specialty Start Date End Date Yehuda Carrasco MD [facility]. [address] [address] PCP - General FAMILY PRACTICE 06/04/19 12/29/20 Radha Tucker APNP [address] [place] [address] PCP - General NURSE PRACTITIONER 12/30/20 Isael Khalil MD [facility]. [address] [address] [place] Retail Operations Manager CARDIOVASCULAR DISEASE 04/28/17 Tee Fajardo MD [facility]. [address] [address] EP Retail Operations Manager CLINICAL CARDIAC ELECTROPHYSIOLOGY 08/30/18 documented as of this encounter
--- OUTSIDE RECORDS SUMMARY | 2024-05-02 01:16 | XMS_ITS | Encounter Summary ---
Author Organization [facility] Address [address] [place] [address] Care Team Providers Care Lawn Care Specialist Name Role Phone Isael Khalil MD Unavailable [phone] Tee Fajardo MD Unavailable Radha Tucker Primary Care Provider [phone] Reason for Visit * Reason Onset Date Comments Lab Results 04/17/2024 Encounter Details Date Type Department Care Team (Late st Contact Info) Description 04/17/2024 EditGridhart Message Enc [facility] Medical Group Family & Internal Medicine - [place] [address] [place] [address] Radha Tucker APNP [address] [place] [address] Platelets Social History Tobacco Use Types Packs/Day Years [...] on file Legal Sex Female 3:25 PM CHIEF CLERK SHELTER Gender Identity Female 03/31/2021 3:03 PM CHIEF CLERK SHELTER Sexual Orientation Straight 03/31/2021 3: 03 PM CHIEF CLERK SHELTER 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 [...] encounter Progress Notes * LUCIO Hunter - 04/19/2024 12:43 PM CST Can have repeated when checking thyroid Save stick and time F CLERK SHELTER documented in this encounter Plan of Treatment Upcoming Encounters Date Type Department Care Team (Late st Contact Info) Description 05/07/2024 1:00 PM CHIEF CLERK SHELTER Office Visit [facility] Medical Group Multispecialty Care - [address], [address] [place] [address] Radha Tucker, LUCIO [address] [place] [address] Raj Barbour MD 3 [place] [address] 01/25/2025 9:40 AM CHIEF CLERK SHELTER Office Visit [facility] Medical Group Multispecialty Care - [facility] 3 [facility] [address] [place] [address] Nhan Garcia MD 3 [facility] [address] [place] [address] 03/05/2025 9:00 AM CHIEF CLERK SHELTER Office Visit [facility] THREE [facility], [address] [place] [address] Isael Khalil MD Three [facility]. [address] [place] [address] documented as of this encounter Procedures Procedure Name Priority Date/Time Associated Diagnosis Comments CBC W/DIFF AUTOMATED Routine 04/27/2024 9:37 AM CHIEF CLERK SHELTER Abnormal CBC documented in this encounter Results * CBC W/DIFF AUTOMATED (04/27/2024 9:37 AM CHIEF CLERK SHELTER) WBC 6.7 3.4 - 10.8 x10E3/uL [facility] 1 RBC 4.84 3.77 - 5.28 x10E6/uL [facility] 1 HGB 14.8 11.1 - 15.9 g/dL [facility] 1 HCT 42.8 34.0 - 46.6 % [facility] 1 MCV 88 79 - 97 fL [facility] 1 MCH 30.6 26.6 - 33.0 pg [facility] 1 MCHC 34.6 31.5 - 35.7 g/dL [facility] 1 RDW 12.1 11.7 - 15.4 % [facility] 1 PLATELET COUNT 150 150 - 450 x10E3/uL [facility] 1 NEUTROPHILS % 63 Not Estab. % [facility] 1 LYMPHOCYTES % 26 Not Estab. % [facility] 1 MONOCYTES % 7 Not Estab. % [facility] 1 EOSINOPHILS % 3 Not Estab. % [facility] 1 BASOPHILS % 1 Not Estab. % [facility] 1 ABS. NEUTROPHILS 4.2 1.4 - 7.0 x10E3/uL [facility] 1 ABS. LYMPHOCYTES 1.7 0.7 - 3.1 x10E3/uL [facility] 1 MONOCYTES 0.5 0.1 - 0.9 x10E3/uL [facility] 1 ABS. EOSINOPHILS 0.2 0.0 - 0.4 x10E3/uL [facility] 1 ABS. BASOPHILS 0.1 0.0 - 0.2 x10E3/uL [facility] 1 ABS. IMMATURE GRANULOCYTES 0 Not Estab. % [facility] 1 ABS. IMMATURE GRANULOCYTES 0.0 0.0 - 0.1 x10E3/uL [facility] 1 04/27/2024 9:37 AM CHIEF CLERK SHELTER 04/27/2024 Narrative [facility] - 04/28/2024 6:12 AM CHIEF CLERK SHELTER Performed at: - [facility] [address] [id number] Electroencephalographic Technologist: Parrish Hernandez PhD, Phone: [phone] [facility] Final Resul t Performing Organization Address City/State/[facility] Co de Phone Number [facility] [address] [place] [address] [facility] 1 documented in this encounter Visit Diagnoses Diagnosis Abnormal CBC- Primary Other abnormal blood chemistry documented in this encounter Additional Health Concerns Assessment Noted Time PHQ-9 Depression Total Score: 0 02/23/20 23 1:34 PM CHIEF CLERK SHELTER documented as of this encounter Care Teams Lawn Care Specialist Relationship Specialty Start Date End Date Radha Tucker APNP [address] [place] [address] PCP - General NURSE PRACTITIONER 12/30/20 Isael Khalil MD Three [facility] [address] [place] [address] [place] Hide Dropper CARDIOVASCULAR DISEASE 04/28/17 Tee Fajardo MD [facility] [address] [place] [address] EP Hide Dropper CLINICAL CARDIAC ELECTROPHYSIOLOGY 08/30/18 documented as of this encounter
--- OUTSIDE RECORDS SUMMARY | 2024-05-02 01:16 | XMS_ITS | Encounter Summary ---
Author Organization [facility] Address [facility] [place] [address] Care Team Providers Care Tester Food Products Name Role Phone Isael Khalil MD Unavailable [phone] Tee Fajardo MD Unavailable Yehuda Carrasco MD Primary Care Provider [phone] Radha Tucker Primary Care Provider [phone] Encounter Details Date Type Department Care Team (Late st Contact Info) Description 07/16/2019 MyChart Message Enc [facility] Medical Group Family and Sports Medicine - [place] [address] [place] [address] Aide Vieyra, S[place] [address] [place] [address] Medication Questions Social History Tobacco Use Types Packs/Day Years Used Date Smoking Tobacco: Never Smokeless Tobacco: Never Alcohol Use Standard Drinks/Week Comments No 0 (1 standard drink = 0.6 oz pur e alcohol) Comments No Sex and Gender Information Value Date Recorded Sex Assigned at Not on file Legal Sex Female 3:25 PM CUFF RUNNER Gender Identity Female 03/31/2021 3:03 PM CUFF RUNNER Sexual Orientation Straight 03/31/2021 3: 03 PM CUFF RUNNER Occupation Industry Job Start Date Job End Date Not on file Not on file Not on file Not on file COVID-19 Exposure Response Date Recorded In the last month, have you been in contact with someone who was confirmed or suspected to have Coronavirus / COVID-19? No / Unsure 07/19/2019 10:47 AM CDT documented as of this encounter Functional Status * RETIRED Are you deaf or do you have serious difficulty hearing Answer Date of Assessment Author Status No 01/26/2019 8:56 AM CUFF RUNNER Activ e * RETIRED Are you blind or do you have serious difficulty seeing, even when wearing glasses? Answer Date of Assessment Author Status No 01/26/2019 8:56 AM CUFF RUNNER Activ e * Do you have serious [...] Progress Notes * Aide Vieyra NP - 07/16/2019 8:43 AM CDT Yes please send to [facility] Thank you documented in this encounter Plan of Treatment Upcoming Encounters Date Type Department Care Team (Late st Contact Info) Description 05/07/2024 1:00 PM CUFF RUNNER Office Visit [facility] Medical Group Multispecialty Care - [facility] 3 [facility], [address] [place] [address] Radha Tucker APNP [address] [place] [address] Raj Barbour MD 3 [facility] [place] [address] 01/25/2025 9:40 AM CUFF RUNNER Office Visit [facility] Medical Group Multispecialty Care - [facility] 3 [facility] [address] [place] [address] Nhan Garcia MD 3 [facility] [address] [place] [address] 03/05/2025 9:00 AM CUFF RUNNER Office Visit [facility] THREE [facility], [address] [place] [address] Isael Khalil MD Three [facility]. [address] [place] [address] documented as of this encounter Visit Diagnoses Not on filedocumented in this encounter Additional Health Concerns Infection Onset Date Last Indicated Resolved Time COVID-19 Rule Out 08/06/2019 08/06/2019 08/08/2019 10:44 AM CDT COVID-19 Rule Out 02/29/2020 02/29/2020 03/01/2020 7:50 PM CUFF RUNNER COVID-19 Rule Out 03/19/2021 03/19/2021 03/19/2021 2:05 PM CUFF RUNNER COVID-19 Rule Out 03/19/2021 03/19/2021 03/21/2021 12:00 AM CUFF RUNNER COVID-19 Rule Out 12/01/2021 12/01/2021 12/01/2021 11:38 PM CDT documented as of this encounter Care Teams Tester Food Products Relationship Specialty Start Date End Date Yehuda Carrasco MD Three [facility]. [address] [place] [address] PCP - General FAMILY PRACTICE 06/04/19 12/29/20 Radha Tucker APNP [address] [place] [address] PCP - General NURSE PRACTITIONER 12/30/20 Isael Khalil MD Three [facility]. [address] [id number] [place] CARDIOVASCULAR DISEASE 04/28/17 Tee Fajardo MD Three [facility]. [address] [id number] [place] CLINICAL CARDIAC ELECTROPHYSIOLOGY 08/30/18 documented as of this encounter
--- OUTSIDE RECORDS SUMMARY | 2024-05-02 01:16 | XMS_ITS | Encounter Summary ---
Author Organization [facility] Address [facility] [place] [address] Care Team Providers Care Electrical Technician Instructor Name Role Phone Isael Khalil MD Unavailable [phone] Tee Fajardo MD Unavailable Radha Tucker Primary Care Provider [phone] Encounter Details Date Type Department Care Team (Late st Contact Info) Description 09/12/2023 sellpointshart Message Enc [facility] Medical Group Multispecialty Care - [facility] 3 [facility], [facility] [address] [place] [phone] Farzaneh Alejandre NP 3 [facility]. 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 Not [...] Author Status No 08/09/2019 2:57 PM CDT Kyaleigh Pickens RN Active documented as of this [...] st Contact Info) Description 05/07/2024 1:00 PM STAFFING DIRECTOR Office Visit [facility] Medical Group Multispecialty Care - [facility] 3 [facility], [address] [place] [address] Radha Tucker APNP [address] [place] [address] Raj Barbour MD 3 [facility] [place] [address] 01/25/2025 9:40 AM STAFFING DIRECTOR Office Visit [facility] Medical Group Multispecialty Care - [facility] 3 [facility] [address] [place] [address] Nhan Garcia MD 3 [facility] [address] [place] [address] 03/05/2025 9:00 AM STAFFING DIRECTOR Office Visit [facility] [address] [facility], [address] [place] [address] Isael Khalil MD [facility]. [address] [place] [address] documented as of this encounter Visit Diagnoses Not on filedocumented in this encounter Additional Health Concerns Assessment Noted Time PHQ-9 Depression Total Score: 0 02/23/20 23 1:34 PM STAFFING DIRECTOR documented as of this encounter Care Teams Electrical Technician Instructor Relationship Specialty Start Date End Date Radha Tucker APNP [address] [place] [address] PCP - General NURSE PRACTITIONER 12/30/20 Isael Khalil MD [facility]. [address] [place] [address] [place] Telecommunications Operator CARDIOVASCULAR DISEASE 04/28/17 Tee Fajardo MD [facility]. [address] [place] [address] EP Telecommunications Operator CLINICAL CARDIAC ELECTROPHYSIOLOGY 08/30/18 documented as of this encounter
--- OUTSIDE RECORDS SUMMARY | 2024-05-02 01:16 | XMS_ITS | Encounter Summary ---
Author Organization [facility] Address [facility] [place] [address] Care Team Providers Care Docket Specialist Name Role Phone Isael Khalil MD Unavailable [phone] Tee Fajardo MD Unavailable Yehuda Carrasco MD Primary Care Provider [phone] Radha Tucker Primary Care Provider [phone] Encounter Details Date Type Department Care Team (Late st Contact Info) Description 08/06/2020 Splothert Message Enc [facility] Medical Group Multispecialty Care - [address], [address] [place] [phone] Deborah Arvizu, [place] [address] [address] RE: Other Social History Tobacco Use Types [...] on file Legal Sex Female 3:25 PM DIVIDER OPERATOR Gender Identity Female 03/31/2021 3:03 PM DIVIDER OPERATOR Sexual Orientation Straight 03/31/2021 3: 03 PM DIVIDER OPERATOR Occupation Industry Job Start Date Job End Date Not on file Not on file Not on file Not on file COVID-19 Exposure Response Date Recorded In the last month, have you been in contact with someone who was confirmed or suspected to have Coronavirus / COVID-19? No / Unsure 08/09/2020 8:01 AM CDT documented as of this encounter [...] st Contact Info) Description 05/07/2024 1:00 PM DIVIDER OPERATOR Office Visit [facility] Medical Group Multispecialty Care - [address], [address] [place] [address] Radha Tucker APNP [address] [place] [address] Raj Barbour MD [address] [place] [address] 01/25/2025 9:40 AM DIVIDER OPERATOR Office Visit [facility] Medical Group Multispecialty Care - [facility] 3 [facility] [address] [place] [address] Nhan Garcia MD 3 [facility] [address] [place] [address] 03/05/2025 9:00 AM DIVIDER OPERATOR Office Visit [facility] THREE [facility], [address] [place] [address] Isael Khalil MD Three [facility]. [address] [place] [address] documented as of this encounter Visit Diagnoses Not on filedocumented in this encounter Additional Health Concerns Infection Onset Date Last Indicated Resolved Time COVID-19 Rule Out 03/19/2021 03/19/2021 03/19/2021 2:05 PM DIVIDER OPERATOR COVID-19 Rule Out 03/19/2021 03/19/2021 03/21/2021 12:00 AM DIVIDER OPERATOR COVID-19 Rule Out 12/01/2021 12/01/2021 12/01/2021 11:38 PM CDT documented as of this encounter Care Teams Docket Specialist Relationship Specialty Start Date End Date Yehuda Carrasco MD Three [facility]. [address] [place] [address] PCP - General FAMILY PRACTICE 06/04/19 12/29/20 Radha Tucker APNP [address] [place] [address] PCP - General NURSE PRACTITIONER 12/30/20 Isael Khalil MD Three [facility] [address] [place] [address] [place] [facility] Actuary CARDIOVASCULAR DISEASE 04/28/17 Tee Fajardo MD Three [facility] [address] [place], [place] [address] EP Health Actuary CLINICAL CARDIAC ELECTROPHYSIOLOGY 08/30/18 documented as of this encounter
--- OUTSIDE RECORDS SUMMARY | 2024-05-02 01:16 | XMS_ITS | Clinical Summary ---
Author Organization [facility] Address [facility] [place] [address] Care Team Providers Care Digital Watch Assembler Name Role Phone Isael Khalil MD Unavailable [phone] Tee Fajardo MD Unavailable Lola Mohamud Primary Care Provider [phone] Allergies Active Allergy Reactions Criticality Noted Date Comments Tape Contact Dermatitis High 09/16/2021 Cefuroxime Rash Low 05/14/2016 Gemifloxacin Rash,Unknown Medium 07/08/2016 Nalbuphine Vomiting High 09/16/2021 Vomiting for several hours Quinolones Rash Medium 05/14/2016 severe rash Medications fluticasone propionate 50 MCG/ACT nasal spray 1 spray by Nasal route as needed. 05/28/19 17 Active CPAP DME DEVICEIndication s:KRISTIAN (obstructive sleep apnea) Auto cpap 4-20 cm, use while sleeping 1 Device 1 11/18/19 19 Active famotidine 20 MG tablet Take 1 tablet (20 mg total) by mouth 2 (two) times daily as needed for Heartburn. Active calcium citrate-vitamin D 315 MG-250 UNIT 315-250 MG-UNIT Tab tablet Take 1 tablet by mouth 2 (two) times daily as needed. Pt states she takes 750mg Active probiotic (FLORAJEN3) Cap capsule Take 1 capsule by mouth 3 (three) times daily with meals. Active biotin 300 MCG Tab Take 1 tablet (300 mcg total) by mouth daily. Active RESTASIS 0.05 % ophthalmic emulsion 01/15/20 23 Active SYNTHROID 100 MCG tablet Take 1 tablet (100 mcg total) by mouth every morning. Take one tablet (100 mcg) daily except for Sundays (88mcg) 02/08/20 Active estradiol (ESTRACE) 0.1 MG/GM vaginal cream 02/19/20 Active hydroCHLOROthiaz yolanda (MICROZIDE) 12.5 MG tablet Take 1 tablet (12.5 mg total) by mouth every morning. 90 tablet 3 07/07/19 24 Active linaCLOtide (LINZESS) 72 MCG capsuleIndicatio ns:Drug-induced constipation Take 1 capsule (72 mcg total) by mouth daily as needed. 90 capsule 08/31/19 24 Active Multiple Vitamins-Mineral s ([facility]) Active ramipril (ALTACE) 10 MG capsule TAKE 1 CAPSULE TWICE DAILY 180 capsule 3 04/13/19 25 Active ramipril (ALTACE) 10 MG capsule Take 1 capsule (10 mg total) by mouth 2 (two) times daily. 180 capsule 3 07/14/19 24 025 Discontinued Active Problems Problem Noted Date Diagnosed Date Fibrosis of liver 10/29/2023 Constipation, unspecified constipation type 12/20 Overview (01/08/2022): Added automatically from request for surgery [id number] COVID-19 vaccine series completed 03/19/2021 Decreased GFR 02/18/2020 S/P cervical spinal fusion 02/06/2020 Lumbar degenerative disc disease 02/06/2020 Spinal stenosis of lumbar re gion without neurogenic claudication 02/06/2020 Spinal stenosis of cervical region 03/28/2019 Cervical myelopathy ([facility]) 03/28/2019 Cervical disc herniation 03/28/2019 KRISTIAN (obstructive sleep apnea) 12/12/2017 Sleep disorder 11/07/2017 Hypothyroidism 04/28/2017 Overview (02/06/2021): Overview: Hypothyroidism Last Assessment & Plan: Your goal of treatment is to keep [...] week, all 7 tabs have been taken. Hypothyroidism Last Assessment & Plan: continue Synthroid, 112 mcg daily Status post total right knee replacement 017 Acid reflux 07/08/2016 Bulging of cervical intervertebral disc 07/09/19 17 Radiculopathy, cervical region 05/27/2016 PVC's (premature ventricular contractions) 05/14 Osteoarthritis of knee, unspecified (CODE) 07/24 Insomnia 09/18/2014 Benign essential hypertension 07/02/2014 Resolved Problems Problem Noted Date Diagnosed Date Resolved Date Nephrolithiasis 02/18/2020 02/17/2023 Lumbar foraminal stenosis 02/06/2020 BMI 37.0-37.9, adult 11/07/2017 023 Inadequate sleep hygiene 11/07/2017 Eustachian tube dysfunction 04/19/2017 01/12/2019 Grieving 04/19/2017 01/12/2019 Snoring 04/19/2017 01/12/2019 Weight loss 04/19/2017 01/12/2019 S/P total knee replacement 01/24/2017 1 Numbness 10/21/2016 01/12/2019 Atrioventricular canal (AVC) (HHS/HCC) 07/08/2016 01/12/2019 Elevated LFTs 07/08/2016 01/12/2019 Primary osteoarthritis of left knee 07/08/2016 01/12/2019 Essential hypertension 05/14/201601/12 Hypothyroid 05/14/2016 01/12/2019 Abnormal laboratory test result 12/12/2015 01/12/2019 Hypothyroidism 07/02/2014 01/12/2019 Frequent PVCs 07/02/2014 01/12/2019 Contusion of right lower leg 03/16/2012 01/12/2019 Ganglion, other site 03/16/2012 019 Encounters Date Type Department Care Team Description 04/17/2024 Scan [facility] SRVCS Scanned, Doc Med Group 04/17/2024 MyChart Message Enc [facility] Medical Group Family & Internal Medicine [address] [address] Lola Mohamud APNP Platelets 03/27/2024 Scan [facility] HEALTH INFO SRVCS Scanned, Doc Med Group 03/27/2024 MyChart Message Enc [facility] Internal [address] [phone] Lola Mohamud APNP [facility] Hepatology (1-3) and [facility] GI (1-7)appts. 03/23/2024 Scan [facility] HEALTH INFO SRVCS Scanned, Doc Med Group 03/16/[address] [phone] Lola Mohamud APNP Radiology Results 03/08/2024 Travel 03/08/2024 MyChart Message Enc [address] [phone] Trey Fernandez Provider lab results 03/06/2024 10:20 AM PROFESSOR OF THEATER - 03/06/2024 11:59 PM PROFESSOR OF THEATER Hospital Encounter [facility] [place] [address] Lola Mohamud APNP Discharge Disposition: Home or Self Care (Routine Discharge) 03/06/2024 Travel 02/28/2024 9:00 AM PROFESSOR OF THEATER Office Visit [facility], [address] [address] Isael Khalil MD Annual (Follow up) 02/28/2024 Travel 02/25/2024 MyChart Message Enc [facility] Internal [address] [phone] Lola Mohamud APNP Lipid panel order 02/22/2024 MyChart Message Enc [facility] Internal [address] [address] Caitlin, Lola H, APNP Right ring finger 2024 MyChart Message Enc [facility] Family & Internal Medicine [address] [phone] [facility] Provider Xray results 02/07/2024 10:20 AM PROFESSOR OF THEATER Office Visit [facility] Internal [address] [phone] Lola Mohamud APNP Hypertension; Hypothyroidism 02/07/2024 Travel 02/03/2024 9:20 AM PROFESSOR OF THEATER Office Visit [facility] Family & Internal [address] [phone] Lola Mohamud APNP Cirrhosis 02/03/2024 - 02/03/2024 11:59 PM PROFESSOR OF THEATER Hospital Encounter [facility] [address] [place] [address] Lola Mohamud APNP Discharge Disposition: Home or Self Care (Routine Discharge) 02/02/2024 11:00 AM PROFESSOR OF THEATER Office Visit [facility]pecialty Care - [facility] [address] [facility] [place] [address] Nhan Garcia MD Follow Up 02/02/2024 Travel 01/31/2024 Scan [facility] INFO SRVCS Scanned, Doc Med Group 01/31/2024 Scan [facility] INFO SRVCS Scanned, Doc Med Group Sleep Study (SCAN) from Last 3 Months Immunizations Name Administration Dates Next Due Arexvy Respiratory Syncytial Virus (RSV, adjuvanted) 0.5 mL, PF 01/28/2023 Fluzone 6 Months+ Quad (0.5 mL Prefilled Syringe) 12/19/2019 Fluzone High Dose - >Age 65 (Prefilled Syringe) 12/20/2022,01/02/2022 Influenza (Generic) 12/11/2015 Influenza Adult (Generic) 01/09/2024,10/2020,12/19/2019,2018,12/11/2015 MODERNA COVID-19 BIVALENT (1 2+), MRNA, LNP-S, PF 01/26/2022 MODERNA COVID-19 (12+) MRNA, LNP-S, PF, 100 MCG/ 0.5 ML DOSE 01/23/2021,04/14/2020,03/17/2020 MODERNA COVID-19 (12+), MRNA , LNP-S, PF, 50 MCG/0.5 ML (SPIKEVAX) 12/20/2022 PFIZER COVID-19 (ZHANG CAP), MRNA, LNP-S, PF, 30 MCG/0.3 ML SWETHA-SUCROSE, IM 09/18/2021 Pneumococcal (Pneumovax 23) 09/18/2021 Shingrix 05/14/2020,12/19/2019 Tdap (Generic) 12/29/2018,03/21/2008 Zoster (Zostavax) 10994 Unt/0.65Ml 05/14/2020 Family History Medical History Relation Comments Heart Attack Brother 1 Valve Disease Brother 1 Asthma Brother 2 Hyperlipidemia Brother 2 Asthma Daughter Heart Attack Father Cancer Maternal Grandfather Colon Colon Cancer Maternal Grandfather Diabetes Maternal Grandfather Early Hearing Loss Maternal Grandfather No Known Problems Maternal Grandmother Asthma Mother Cancer Mother Colon Miscarriages / Stillbirths Mother Asthma Sister PULMONARY EMBOLISM Sister Asthma Son Relation Status Comments Brother 1 heart attack Brother 2 Alive Daughter Alive Father (Age 70) Maternal Grandfather 85 Maternal Grandmother (Age 91) Mother (Age 71) Sister (Age 51) Son Alive Social History Tobacco Use Types Packs/Day Years Used Date Smoking Tobacco: Never Passive Smoke Exposure: Past Smokeless Tobacco: Never Tobacco Cessation:Counseling Given: No Alcohol Use Standard Drinks/Week Comments No 0 [...] on file Legal Sex Female 3:25 PM PROFESSOR OF THEATER Gender Identity Female 03/31/2021 3:03 PM PROFESSOR OF THEATER Sexual Orientation Straight 03/31/2021 3: 03 PM PROFESSOR OF THEATER 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 Not on file Not on file Last Filed Vital Signs Vital Sign Reading Time Taken Comments Blood Pressure 134/80 02/28/2024 9:02 AM PROFESSOR OF THEATER Pulse 70 02/28/2024 9:02 AM PROFESSOR OF THEATER Temperature 36.3 C (97.3 F) 02/07/2024 10:35 AM PROFESSOR OF THEATER Respiratory Rate 16 02/07/2024 10:35 AM PROFESSOR OF THEATER Oxygen Saturation 98% 02/28/2024 9:02 AM PROFESSOR OF THEATER Inhaled Oxygen Concentration - - Weight 89.4 kg (197 lb) 02/28/2024 9:02 AM PROFESSOR OF THEATER Height 170.2 cm (5' 7 ) 02/28/2024 9:02 AM PROFESSOR OF THEATER Body Mass Index 30.85 02/28/2024 9:02 AM PROFESSOR OF THEATER Plan of Treatment Upcoming Encounters Date Type Department Care Team (Late st Contact Info) Description 05/07/2024 1:00 PM PROFESSOR OF THEATER [facility] [address], [address] [place] [phone] Lola Mohamud, APNP [address] [place] [address] Raj Barbour MD [address] [place] [id number] 01/25/2025 9:40 AM PROFESSOR OF THEATER [facility] [address] [facility] [place] [phone] Nhan Garcia MD [address] [facility] [address] [place] [address] 03/05/2025 9:00 AM PROFESSOR OF THEATER Office Visit [facility], [address] [place], [place] [phone] Isael Khalil MD [facility]. [address] [place], [place] [id number] Health Maintenance Due Date Last Done Comments Zoster Vaccines (3 of 3) 07/09/2020 021, 05/14/2020, 12/19/2019 Pneumococcal Vaccine: 65+ Years (2 of 2 - PCV) 09/18/2022 09/18/2021 Annual Medicare Wellness Visit 02/24/2024 02/22/2023 PHQ-2 (Physician [place]) 03/21/2024 02/07/2024 Mammogram Screening 08/11/2025 08/12/2023, 06/11/2021, 01/03/2020, Additional history exists DTaP, Tdap and Td Vaccines (3 - Td or Tdap) 12/29/2028 12/29/2018, 03/21/2008 Colorectal Cancer Screening Colonoscopy (10 Years) 04/21/2032 04/21/2022, 02/20/2018, 10/19/2012 Dexa Scan (General) Completed 06/11/2021 RSV Immunization or 60+ Years Completed 01/28/2023 Hepatitis C Completed 02/22/2023 Influenza Adult Completed 01/09/2024, 04/2022, 01/02/2022, Additional history exists COVID-19 Vaccine Completed 01/31/2024, 04/2022, 01/26/2022, Additional history exists Meningococcal B Vaccine Aged Out No l onger eligible based on patient's age to complete this topic Meningococcal Vaccine Aged Out No kiki sweta eligible based on patient's age to complete this topic RSV Immunizations Under 20 Months Aged Out No longer eligible based on patient's age to complete this topic Medical Devices Implanted Type Area Manufacturing Automation Engineer Device Identifier Shelf Expiration Date Model / Serial / Lot Cement Full Dose - [id number] Implanted:Qty: 1 on 01/24/2017 by Charan Chester MD at [facility] Cement Implant Right: Knee [employer] 06/19/2019 [id number] / / [id number] Cement Bone Smpx Ptobramycin Fd Radopq Preblend Ster - [id number] Implanted:Qty: 1 on 01/24/2017 by Charan Chester MD at [facility] Cement Implant Right: Knee [employer] 04/20/2018 [id number] / / [id number] Femoral Implant Ps Implanted:Qty: 1 on 01/24/2017 by Charan Chester MD at [facility] Right: Knee [employer] 12/18/2020 [id number] / / [id number] Ibalance Tka Tibial Tray Implanted:Qty: 1 on 01/24/2017 by Charan Chester MD at [facility] Right: Knee [employer] modular 07/18/2021 [id number] / / [id number] Patella Implant, Dome Implanted:Qty: 1 on 01/24/2017 by Charan Chester MD at [facility] Right: Knee [employer] 07/18/2021 [id number] / / [id number] Tibial Bearing Implant,Ps Implanted:Qty: 1 on 01/24/2017 by Charan Chester MD at [facility] Right: Knee [employer] 02/18/2020 [id number] / / [id number] 12mm Self Tapping Implanted:Qty: 6 on 08/09/2019 by Vincent Villalobos MD at [facility] N/A: Spine Cervical SYNTHES Description:C5-C7 Bio Dbm Gel Implanted:Qty: 1 on 08/09/2019 by Vincent Villalobos MD at [facility] N/A: Spine Cervical [employer] 11/10/2021 [id number] / / [id number] Description:C5-C6 C6-C7 Cervical 4 Deg W/ Hole 6mm Implanted:Qty: 1 on 08/09/2019 by Vincent Villalobos MD at [facility] N/A: Spine Cervical [employer] 05/08/2022 [id number] / / [id number] Description:ID: [id number] Code: [id number] C6-C7 Cervical 4 Deg W/ Hole 6mm Implanted:Qty: 1 on 08/09/2019 by Vincent Villalobos MD at [facility] N/A: Spine Cervical [employer] 10/17/2022 [id number] / / [id number] 18 Plate Cervical Aviator Mamie - [id number] Implanted:Qty: 1 on 08/09/2019 by Vincent Villalobos MD at [facility] N/A: Spine Cervical [employer] [id number] / / Description:C5-C7 Explanted Type Area Manufacturing Automation Engineer Device Identifier Shelf Expiration Date Model / Serial / Lot Distration Pin 12mm - [id number] Explanted:Qty: 2 on 08/09/2019 by Vincent Villalobos MD at [facility] N/A: Spine Cervical [employer] [id number] / / Description:C5-C7 Procedures Procedure Name Priority Date/Time Associated Diagnosis Comments CBC W/DIFF AUTOMATED Routine 04/27/2024 9:37 AM PROFESSOR OF THEATER Abnormal CBC XR HAND RT 3V Routine 03/08/2024 10:36 AM PROFESSOR OF THEATER Numbness and tingling in right hand Hand pain, right LIPID PANEL Routine 03/06/2024 10:26 AM PROFESSOR OF THEATER Routine general medical examination at a [facility] care facility CBC W/DIFF AUTOMATED Routine 03/06/2024 10:26 AM PROFESSOR OF THEATER Thrombocytopenia (CMS/HCC) XR CERV SPINE 3V Routine 02/07/2024 11:2 2 AM PROFESSOR OF THEATER Cervical myelopathy (CMS/HCC HHS/HCC) COLLECTION VENOUS BLOOD VENIPUNCTURE Routine 02/03/2024 1:28 PM PROFESSOR OF THEATER Elevated liver enzymes Elevated serum creatinine Hyperglycemia Thrombocytopenia (CMS/HCC) HEPATITIS B SURFACE AG, EIA Routine 02/03/2024 1:27 PM PROFESSOR OF THEATER Elevated liver enzymes HEPATITIS B CORE ANTIBODY Routine 02/03/2024 1:27 PM PROFESSOR OF THEATER Elevated liver enzymes HEPATITIS B SURFACE ANTIBODY Routine 02/03/2024 1:27 PM PROFESSOR OF THEATER Elevated liver enzymes COMPREHENSIVE METABOLIC PANEL Routine 02/03/2024 1:27 PM PROFESSOR OF THEATER Elevated liver enzymes Elevated serum creatinine HEMOGLOBIN, GLYCOSYLATED Routine 02/03/2024 1:27 PM PROFESSOR OF THEATER Hyperglycemia CBC W/DIFF AUTOMATED Routine 02/03/2024 1:27 PM PROFESSOR OF THEATER Thrombocytopenia (CMS/HCC) SLEEP STUDY GENERIC (SCAN ORDER) 01/31/2024 MAMMOGRAM GENERIC (SCAN ORDER) 08/12/2023 HEPATITIS C ANTIBODY Routine 02/22/2023 9:27 AM PROFESSOR OF THEATER Need for hepatitis C screening test BONE DENSITY GENERIC (SCAN ORDER) 06/11/2021 COLONOSCOPY GENERIC (SCAN ORDER) 02/20/2018 from Last 3 Months or Most Recently Relevant to Health Maintenance Results * CBC W/DIFF AUTOMATED (04/27/2024 9:37 AM PROFESSOR OF THEATER) Only the most recent of3 resultswithin the time period is included. WBC 6.7 3.4 - 10.8 x10E3/uL [facility] [...] 0.1 x10E3/uL [facility] 1 04/27/2024 9:37 AM PROFESSOR OF THEATER 04/27/2024 Narrative [facility] - 04/28/2024 6:12 AM PROFESSOR OF THEATER Performed at: [facility] [id number] Tape Stringer: Parrish Hernandez PhD, Phone: [phone] us [facility] Final Resul t [facility] [address] [place] [address] [facility] 1 * XR HAND RT 3V (03/08/2024 10:36 AM PROFESSOR OF THEATER) Anatomical Region Laterality Modality Hand Radiographic Maureen ging 03/08/2024 10:2 7 AM PROFESSOR OF THEATER Narrative 03/11/2024 8:35 AM PROFESSOR OF THEATER [facility] and Internal [facility] - [address] [address] Procedure(s): XR HAND RT 3V Date of service: 03/08/2024 10:27 AM Provided clinical information: 69 years, Female, pain and numbness in fingertips of right hand. pt. states rt. 4th digit pain/zinging sensation [id number]. states can see all the little veins. [...] Procedure Note Naveed Connelly MD - 03/11/2024 [facility] Internal [facility] - [address] [address] Procedure(s): XR HAND RT 3V Date of service: 03/08/2024 10:27 AM Provided clinical information: 69 years, Female, pain and numbness infingertips of right hand. pt. states rt. 4th digit pain/zinging sensation [id number]. states can seeall the little veins. no [...] By: Naveed Connelly MD, 03/11/2024 8:33 AM Lola Mohamud APNP GENERAL IMAGING Final Resul t * (ABNORMAL) LIPID PANEL (03/06/2024 10:26 AM PROFESSOR OF THEATER) CHOLESTEROL 175 <200 MG/DL 03/06/2024 12:36 PM [facility] TRIGLYCERIDES 185(H) <150 MG/DL 03/06/2024 12:36 PM [facility] HDL 47 >40.0 MG/DL 03/06/2024 12:36 PM [facility] LDL (CALCULATED) 91 <100 MG/DL 03/06/2024 12:36 PM [facility] NON HDL CHOLESTEROL 128 <130 MG/DL 03/06/2024 12:36 PM [facility] CHOL/HDL RATIO 3.7 0.0 - 4.5 03/06/2024 12:36 PM [facility] VLDL CALCULATION 37 5 - 55 MG/DL 03/06/2024 12:36 PM [facility] LIPID INTERPRETATION 03/06/2024 12:36 PM [facility] Comment: [facility] CONCENSUS REPORT RECOMMENDATIONS: ADULT CHILD LOW RISK: CHOLESTEROL <200 <170 TRIGLYCERIDE <150 --- HDL >=60 --- LDL <100 <110 BORDERLINE: CHOLESTEROL 200-239 170-199 TRIGLYCERIDE 150-199 --- HDL 40-59 --- LDL 100-159 110-129 HIGH RISK: CHOLESTEROL >=240 >=200 TRIGLYCERIDE >=200 --- HDL <40 --- LDL >=160 >=130 03/06/2024 10:2 6 AM PROFESSOR OF THEATER Lola Mohamud APNP LABORATORY Final Resul t [facility] [address] [facility] [place] [address], * XR CERV SPINE 3V (02/07/2024 11:22 AM PROFESSOR OF THEATER) Anatomical Region Laterality Modality Spine Radiographic Maureen ging 02/07/2024 7:02 PM PROFESSOR OF THEATER Impressions 02/07/2024 7:04 PM PROFESSOR OF THEATER IMPRESSION: 1. No acute findings. 2. Multilevel degenerative disc disease and facet arthropathy. 3. No evidence of hardware complication. Ordered By: LOLA MOHAMUD Interpreted By: Jluis Roblero DO, 02/07/2024 7:02 PM Narrative 02/07/2024 7:04 PM PROFESSOR OF THEATER [facility] [place] [address] EXAMINATION: XR CERV SPINE 3V HISTORY: Neck pain. Upper extremity numbness and tingling. Cervical radiculopathy. COMPARISON: X-ray cervical spine 12/24/2022. TECHNIQUE: Multiple views of the cervical spine. FINDINGS: No visible acute fracture or dislocation. No evidence of osteolysis. No vertebral body height loss. There is multilevel degenerative disc disease and facet arthropathy. There is anterior cervical spinal fusion hardware from C5-C7. No evidence of hardware loosening or breakage. No prevertebral soft tissue swelling. If the patient's symptoms persist or worsen over time, further evaluation with MRI would be recommended. Procedure Note Jluis Roblero DO - 02/07/2024 [facility] [place] [address] EXAMINATION: XR CERV SPINE 3V HISTORY: Neck pain. Upper extremity numbness and tingling. Cervicalradiculopathy. COMPARISON: X-ray cervical spine 12/24/2022. TECHNIQUE: Multiple views of the cervical spine. FINDINGS: No visible acute fracture or dislocation. No evidence of osteolysis. Novertebral body height loss. There is multilevel degenerative disc diseaseand facet arthropathy. There is anterior cervical spinal fusion hardwarefrom C5-C7. No evidence of hardware loosening or breakage. No prevertebralsoft tissue swelling. If the patient's symptoms persist or worsen overtime, further evaluation with MRI would be recommended. IMPRESSION: 1. No acute findings. 2. Multilevel degenerative disc disease and facet arthropathy. 3. No evidence of hardware complication. Ordered By: LOLA MOHAMUD Interpreted By: Jluis Roblero DO, 02/07/2024 7:02 PM [facility] Final Resul t * HEMOGLOBIN, GLYCOSYLATED (02/03/2024 1:27 PM PROFESSOR OF THEATER) HGB A1C 5.2 4.5 - 6.2 % 02/03/2024 4:25 PM PROFESSOR OF THEATER [facility] ESTIMATED AVG GLUCOSE 103 74 - 106 MG/DL 02/03/2024 4:25 PM PROFESSOR OF THEATER [facility] 02/03/2024 1:27 PM PROFESSOR OF THEATER [facility] Final Resul t [facility] [address] [place] [address], * (ABNORMAL) COMPREHENSIVE METABOLIC PANEL (02/03/2024 1:27 PM PROFESSOR OF THEATER) SODIUM S/P/B 140 136 - 145 MMOL/L 02/03/2024 2:57 PM PROFESSOR OF THEATER [facility] POTASSIUM S/P/B 4.0 3.5 - 5.1 MMOL/L 02/03/2024 2:57 PM PROFESSOR OF THEATER [facility] CHLORIDE S/P/B 103 98 - 107 MMOL/L 02/03/2024 2:57 PM PROFESSOR OF THEATER [facility] CO2 34.0(H) 21 - 32 MMOL/L 02/03/2024 3:49 PM PROFESSOR OF THEATER [facility] Comment:RESULTS CONFIRMED-TE ST REPEATED GLUCOSE 100(H) 70 - 99 MG/DL 02/03/2024 2:57 PM [facility] BUN 18 7 - 18 MG/DL 02/03/2024 2:57 PM [facility] CREATININE S/P/B 0.91 0.55 - 1.02 MG/DL 02/03/2024 2:57 PM PROFESSOR OF THEATER [facility] CALCIUM S/P/B 9.6 8.4 - 10.5 MG/DL 02/03/2024 2:57 PM [facility] BILIRUBIN TOTAL S/P/B 0.8 0.2 - 1.0 MG/DL 02/03/2024 2:57 PM [facility] ALKALINE PHOSPHATASE S/P/B 78 55 - 142 U/L 02/03/2024 2:57 PM [facility] AST 22 15 - 37 U/L 02/03/2024 2:57 PM [facility] ALT 33 14 - 59 U/L 02/03/2024 2:57 PM [facility] TOTAL PROTEIN S/P/B 6.9 6.4 - 8.2 G/DL 02/03/2024 2:57 PM [facility] ALBUMIN S/P/B 4.0 3.4 - 5.0 G/DL 02/03/2024 2:57 PM [facility] ANION GAP 3.0(L) 5 - 15 MMOL/L 02/03/2024 3:49 PM [facility] Comment:REFERENCE RANGE NOT ESTABLISHED OSMOLALITY (CALC) 292 MOSM/KG 024 2:57 PM [facility] Comment:REFERENCE RANGE NOT ESTABLISHED GFR ESTIMATE 69(L) >90 ML/MIN/1. 73 M2 02/03/2024 2:57 PM PROFESSOR OF THEATER [facility] GFR NOTES GFR REFERENCE S: 02/03/2024 2:57 PM PROFESSOR OF THEATER [facility] Comment: THE ESTIMATED GFR IS CALCULATED USING THE 2020 CKD-EPI EQUATION. THE FOLLOWING CATEGORIES FOR GRADING RENAL FUNCTION ARE RECOMMENDED BY THE INTERNATIONAL SOCIETY OF NEPHROLOGY (KDIGO 2012 CLINICAL PRACTICE GUIDELINE). G1,NORMAL OR HIGH: >89 ml/min/1.73 m2 G2,MILDLY DECREASED: 60-89 ml/min/1.73 m2 G3A,MILDLY TO MODERATELY DECREASED: 45-59 ml/min/1.73 m2 G3B,MODERATELY TO SEVERELY DECREASED: 30-44 ml/min/1.73 m2 G4,SEVERELY DECREASED: 15-29 ml/min/1.73 m2 G5,KIDNEY FAILURE: <15 ml/min/1.73 m2 02/03/2024 1:27 PM PROFESSOR OF THEATER [facility] Final Resul t Performing Organization Address City/[facility]/ZIP Co de Phone Number [facility] [address] [place] [address], [place] [phone] * HEPATITIS B SURFACE AG, EIA (02/03/2024 1:27 PM PROFESSOR OF THEATER) HEPATITIS B SURFACE AG NON-REACTI VE NON-REACTI VE 02/03/2024 6:41 PM PROFESSOR OF THEATER [facility] Comment:HBsAg NOT DETECTED. 02/03/2024 1:27 PM PROFESSOR OF THEATER [facility] Final Resul t [facility] [address] [place] [address], [place] [phone] * (ABNORMAL) HEPATITIS B SURFACE ANTIBODY (02/03/2024 1:27 PM PROFESSOR OF THEATER) HEP B SURFACE AB <3.1(L) >9.9 MIU/ML 02/03/2024 6:41 PM PROFESSOR OF THEATER [facility] Comment:INDIVIDUAL IS CONSID ERED NOT IMMUNE TO HBV INFECTION. 02/03/2024 1:27 PM PROFESSOR OF THEATER Lola Vera Caitlin [facility] Final Resul t Performing Organization Address [facility] Co de Phone Number [facility] [address] [place] [address], [place] [phone] * HEPATITIS B CORE ANTIBODY (02/03/2024 1:27 PM PROFESSOR OF THEATER) HEP B CORE TOTAL AB NON-REACTI VE NON-REACTI VE 02/03/2024 6:41 PM PROFESSOR OF THEATER [facility] Comment:IgM and IgG anti HBc not detected. 02/03/2024 1:27 PM PROFESSOR OF THEATER Lola Caitlin [facility] Final Resul t Performing Organization Address [facility] de Phone Number [facility] [address] [place] [address], [place] [phone] * SLEEP STUDY GENERIC (SCAN ORDER) (01/31/2024) 01/31/2024 [facility] Scanned SCANNING Final Resu lt * MAMMOGRAM GENERIC (SCAN ORDER) (08/12/2023) Anatomical Region Laterality Modality Other 08/12/2023 [facility] Scanned SCANNING Final Resu lt * HEPATITIS C AB ([facility] ONLY) (02/22/2023 9:27 AM PROFESSOR OF THEATER) HEPATITIS C AB NON-REACTI VE NON-REACTI VE 02/22/2023 11:01 AM PROFESSOR OF THEATER [facility] 02/22/2023 9:27 AM PROFESSOR OF THEATER us [facility] Final Resul t [facility] [address] [place] [address], [place] [phone] * BONE DENSITY GENERIC (06/11/2021) Anatomical Region Laterality Modality Other 06/11/2021 Narrative 06/11/2021 Ordered by an unspecified provider. us Documents Scanned SCANNING Final Result * COLONOSCOPY GENERIC (02/20/2018) 02/20/2018 Narrative 02/20/2018 Ordered by an unspecified provider. 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 Expl anation Advance Directives and Living Will 08/11/2019 8:10 AM 05/30/2019 MY POWER OF PROFESSOR OF APOLOGETICS FOR HEALTH CARE * Full Code (Latest Code Status on File) Date Activated Date Inactivated Comments 08/09/2019 2:20 PM 08/10/2019 12:29 PM * Full Code Date Activated Date Inactivated Comments 01/25/2019 2:39 PM 01/26/2019 11:43 AM * Full Code Date Activated Date Inactivated Comments 01/24/2017 4:51 PM 01/27/2017 6:25 PM Care Teams Digital Watch Assembler Relationship Specialty Start Date End Date Lola Mohamud APNP [address] [place] [address] PCP - General NURSE PRACTITIONER 12/30/20 Isael Khalil MD [facility]. [place] [address] [place], [place] [address] [place] Expediter CARDIOVASCULAR DISEASE 04/28/17 Tee Fajardo MD [facility]. [facility] [address] [place], [place] [phone] EP Expediter CLINICAL CARDIAC ELECTROPHYSIOLOGY 08/30/18
--- OUTSIDE RECORDS SUMMARY | 2024-05-02 01:17 | XMS_ITS | Encounter Summary ---
Author Organization [facility] Address [facility] [place] [address] Care Team Providers Care Consular Officer Name Role Phone Isael Khalil MD Unavailable [phone] Tee Fajardo MD Unavailable Radha Tucker Primary Care Provider [phone] Encounter Details Date Type Department Care Team (Late st Contact Info) Description 06/21/2021 MyChart Message Enc [facility] Family & Internal Medicine [facility] [address] [place] [address] Radha Tucker APNP [address] [place] [address] Eye problem Social History Tobacco Use Types Packs/Day Years [...] on file Legal Sex Female 3:25 PM TRAVELING MISSIONARY Gender Identity Female 03/31/2021 3:03 PM TRAVELING MISSIONARY Sexual Orientation Straight 03/31/2021 3: 03 PM TRAVELING MISSIONARY 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 No / Unsure 06/24/2021 9:10 AM CDT documented as of this encounter [...] st Contact Info) Description 05/07/2024 1:00 PM TRAVELING MISSIONARY Office Visit [facility] Multispecialty Care - [address], [address] [place] [address] Radha Tucker, LUCIO [address] [place] [address] Raj Barbour MD [address] [place] [address] 01/25/2025 9:40 AM TRAVELING MISSIONARY Office Visit [facility] - [facility] [address] [place] [address] Nhan Garcia MD [address] [place] [address] [place] [address] 03/05/2025 9:00 AM TRAVELING MISSIONARY Office Visit [facility] [address] [facility], [place] [address] [place] [address] Isael Khalil MD Three [facility]. [place] [address] [place], [place] [address] documented as of this encounter Visit Diagnoses Not on filedocumented in this encounter Additional Health Concerns Infection Onset Date Last Indicated Resolved Time COVID-19 Rule Out 12/01/2021 12/01/2021 12/01/2021 11:38 PM CDT Assessment Noted Time PHQ-9 Depression Total Score: 0 06/04/19 22 8:33 AM CDT documented as of this encounter Care Teams Consular Officer Relationship Specialty Start Date End Date Radha Tucker APNP [address] [place] [address] PCP - General NURSE PRACTITIONER 12/30/20 Isael Khalil MD Three [facility]. [place] [address] [place] [address] [place] Plastic Extrusion Operator CARDIOVASCULAR DISEASE 04/28/17 Tee Fajardo MD Three [facility]. [place] [address] [place], [place] [id number] EP Plastic Extrusion Operator CLINICAL CARDIAC ELECTROPHYSIOLOGY 08/30/18 documented as of this encounter
--- OUTSIDE RECORDS SUMMARY | 2024-05-02 01:17 | XMS_ITS | Encounter Summary ---
Author Organization [facility] Address [facility] [place] [address] Care Team Providers Care Field Artillery Crewmember Name Role Phone Paul Finley DO Primary Care Provider [phone] Isael Khalil MD Unavailable [phone] Tee Fajardo MD Unavailable Yehuda Carrasco MD Primary Care Provider [phone] Radha Tucker Primary Care Provider [phone] Encounter Details Date Type Department Care Team (Late st Contact Info) Description 04/26/2019 Rocket Software Message Enc [facility] Family Medicine [address] [address] Rebecca, [facility] Provider Social History Tobacco Use Types Packs/Day Years Used Date Smoking Tobacco: Never Smokeless Tobacco: Never Alcohol Use Standard Drinks/Week Comments No 0 (1 standard drink = 0.6 oz pur e alcohol) Comments No Sex and Gender Information Value Date Recorded Sex Assigned at Not on file Legal Sex Female 3:25 PM DIGITAL COLOR PRESS OPERATOR Gender Identity Female 03/31/2021 3:03 PM DIGITAL COLOR PRESS OPERATOR Sexual Orientation Straight 03/31/2021 3: 03 PM DIGITAL COLOR PRESS OPERATOR Occupation Industry Job Start Date Job End Date Not on file Not on file Not on file Not on file documented as of this encounter Functional Status * RETIRED Are you deaf or do you have serious difficulty hearing Answer Date of Assessment Author Status No 01/26/2019 8:56 AM DIGITAL COLOR PRESS OPERATOR Activ e * RETIRED Are you blind or do you have serious difficulty seeing, even when wearing glasses? Answer Date of Assessment Author Status No 01/26/2019 8:56 AM DIGITAL COLOR PRESS OPERATOR Activ e * Do you have serious [...] st Contact Info) Description 05/07/2024 1:00 PM DIGITAL COLOR PRESS OPERATOR [facility] [address], [address] [place] [phone] Radha Tucker, LUCIO [address] [place] [address] Raj Barbour MD [address] [place] [address] 01/25/2025 9:40 AM DIGITAL COLOR PRESS OPERATOR [facility] [address] [place] [phone] Nhan Garcia MD [address] [place] [address] [place] [address] [place] [address] 03/05/2025 9:00 AM DIGITAL COLOR PRESS OPERATOR Office Visit [facility] THREE [facility], [place] [address] [place] [address] Isael Khalil MD [facility]. [place] [address] [place], [place] [address] documented as of this encounter Visit Diagnoses Not on filedocumented in this encounter Additional Health Concerns Infection Onset Date Last Indicated Resolved Time COVID-19 Rule Out 08/06/2019 08/06/2019 08/08/2019 10:44 AM CDT COVID-19 Rule Out 02/29/2020 02/29/2020 03/01/2020 7:50 PM DIGITAL COLOR PRESS OPERATOR COVID-19 Rule Out 03/19/2021 03/19/2021 03/19/2021 2:05 PM DIGITAL COLOR PRESS OPERATOR COVID-19 Rule Out 03/19/2021 03/19/2021 03/21/2021 12:00 AM DIGITAL COLOR PRESS OPERATOR COVID-19 Rule Out 12/01/2021 12/01/2021 12/01/2021 11:38 PM CDT documented as of this encounter Care Teams Field Artillery Crewmember Relationship Specialty Start Date End Date Paul Finley DO PCP - General FAMILY PRACTICE 08/20/15 06/03/19 Yehuda Carrasco MD [facility]. [facility] [address] [place] [address] PCP - General FAMILY PRACTICE 06/04/19 12/29/20 Radha Tucker APNP [address] [place] [address] PCP - General NURSE PRACTITIONER 12/30/20 Isael Khalil MD [facility]. [facility] [address] [place] [address] [place] Swatch Clerk CARDIOVASCULAR DISEASE 04/28/17 Tee [facility] MD [facility] [address] [place] [address] EP Swatch Clerk CLINICAL CARDIAC ELECTROPHYSIOLOGY 08/30/18 documented as of this encounter
--- OUTSIDE RECORDS SUMMARY | 2024-05-02 01:17 | XMS_ITS | Encounter Summary ---
Author Organization [facility] Address [facility] [place] [address] Care Team Providers Care Sushi Chef Name Role Phone Paul Finley DO Primary Care Provider + [phone] Isael Khalil MD Unavailable [phone] Tee Fajardo MD Unavailable Yehuda Carrasco MD Primary Care Provider [phone] Radha Tucker Primary Care Provider [phone] Encounter Details Date Type Department Care Team (Late st Contact Info) Description 04/24/2019 N[employer]eb [employer] Message Enc [facility] Family Medicine - [place] [address] [place] [address] Aide Vieyra NP [address] [place] [address] Test Results Social History Tobacco Use Types Packs/Day Years Used Date Smoking Tobacco: Never Smokeless Tobacco: Never Alcohol Use Standard Drinks/Week Comments No 0 (1 standard drink = 0.6 oz pur e alcohol) Comments No Sex and Gender Information Value Date Recorded Sex Assigned at Not on file Legal Sex Female 3:25 PM TAX ANALYST Gender Identity Female 03/31/2021 3:03 PM TAX ANALYST Sexual Orientation Straight 03/31/2021 3: 03 PM TAX ANALYST Occupation Industry Job Start Date Job End Date Not on file Not on file Not on file Not on file documented as of this encounter Functional Status * RETIRED Are you deaf or do you have serious difficulty hearing Answer Date of Assessment Author Status No 01/26/2019 8:56 AM TAX ANALYST Activ e * RETIRED Are you blind or do you have serious difficulty seeing, even when wearing glasses? Answer Date of Assessment Author Status No 01/26/2019 8:56 AM TAX ANALYST Activ e * Do you have serious difficulty walking or climbing stairs? Answer Date of Assessment Author Status No 01/26/2019 8:56 AM Rogers Huntley RN Active * Do you have difficulty dressing or bathing? Answer Date of Assessment Author Status No 01/26/2019 8:56 AM Rogers Huntely RN Active * Because of a physical, [...] Progress Notes * Henrique Wu RN - 04/26/2019 3:32 PM CST Sent [employer] message to inform patient. ANALYST * Paul Finley DO - 04/26/2019 3:00 PM CST Her CK returned to normal. Elevated CK can be cause by medications such as statins, which she is not on, or muscle injury. Working out can also cause elevations in CK levels. Since it returned to normal, I recommend f/u in a provider in 3 mos to discuss further testing to make sure it stays down ANALYST * Aide Vieyra NP - 04/26/2019 1:03 PM CST She followed up with you for her elevated CPK Please advise Thank you ANALYST * Henrique Wu RN - 04/25/2019 8:56 AM CST Please advise about CPK. Pt was notified about MRI and what to do. Thanks! ANALYST * Henrique Wu RN - 04/25/2019 7:33 AM CST Please advise. Thanks! ANALYST documented in this encounter Plan of Treatment Upcoming Encounters Date Type Department Care Team (Late st Contact Info) Description 05/07/2024 1:00 PM TAX ANALYST [facility] [address] [facility], [address] [place] [phone] Radha Tucker, JO[address] [address] Raj Barbour MD [address] [place], [place] [address] 01/25/2025 9:40 AM TAX ANALYST [facility] [address] [facility] [place] [phone] Nhan Garcia MD [address] [facility] [place] [address] [place] [address] 03/05/2025 9:00 AM TAX ANALYST Office Visit [facility] THREE [facility], [place] [address] [place] [address] Isael Khalil MD Three [facility]. [place] [address] [place] [address] documented as of this encounter Visit Diagnoses Not on filedocumented in this encounter Additional Health Concerns Infection Onset Date Last Indicated Resolved Time COVID-19 Rule Out 08/06/2019 08/06/2019 08/08/2019 10:44 AM CDT COVID-19 Rule Out 02/29/2020 02/29/2020 03/01/2020 7:50 PM TAX ANALYST COVID-19 Rule Out 03/19/2021 03/19/2021 03/19/2021 2:05 PM TAX ANALYST COVID-19 Rule Out 03/19/2021 03/19/2021 03/21/2021 12:00 AM TAX ANALYST COVID-19 Rule Out 12/01/2021 12/01/2021 12/01/2021 11:38 PM CDT documented as of this encounter Care Teams Sushi Chef Relationship Specialty Start Date End Date Paul Finley DO PCP - General FAMILY PRACTICE 08/20/15 06/03/19 Yehuda Carrasco MD [facility]. [address] [address] PCP - General FAMILY PRACTICE 06/04/19 12/29/20 Radha Tucker APNP [address] [place] [address] PCP - General NURSE PRACTITIONER 12/30/20 Isael Khalil MD [facility]. [address] [id number] [place] [facility] Care Manager CARDIOVASCULAR DISEASE 04/28/17 Tee Fajardo MD [facility]. [facility] [address] [place], [place] [phone] EP Assisted Living Care Manager CLINICAL CARDIAC ELECTROPHYSIOLOGY 08/30/18 documented as of this encounter
--- OUTSIDE RECORDS SUMMARY | 2024-05-02 01:17 | XMS_ITS | Encounter Summary ---
Author Organization [facility] Address [facility] [place] [address] Care Team Providers Care Dip Tube Assembler Machine Name Role Phone Isael Khalil MD Unavailable [phone] Tee Fajardo MD Unavailable Radha Tucker Primary Care Provider [phone] Encounter Details Date Type Department Care Team (Late st Contact Info) Description 02/19/2021 Studio Ousiahart Message Enc [facility] Family & Internal Medicine [facility] [address] [place] [address] Radha Tucker APNP [address] [place] [address] [employer] 72 mcg Social History Tobacco Use Types Packs/Day Years Used Date Smoking Tobacco: Never Smokeless Tobacco: Never Alcohol Use Standard Drinks/Week Comments No 0 (1 standard drink = 0.6 oz pur e alcohol) PHQ-2 Answer Date Recorded PHQ-2 Score - If the patient scores above 3, please move on to questions 3-9 0 02/06/2021 Comments No Sex and Gender Information Value Date Recorded Sex Assigned at Not on file Legal Sex Female 3:25 PM CONTACT CENTER SPECIALIST Gender Identity Female 03/31/2021 3:03 PM CONTACT CENTER SPECIALIST Sexual Orientation Straight 03/31/2021 3: 03 PM CONTACT CENTER SPECIALIST 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 No / Unsure 02/18/2021 9:11 AM CONTACT CENTER SPECIALIST documented as of this encounter Functional Status [...] st Contact Info) Description 05/07/2024 1:00 PM CONTACT CENTER SPECIALIST Office Visit [facility] Multispecialty Care - [address], [address] [place] [address] Radha Tucker, LUCIO [address] [place] [address] Raj Barbour MD [address] [place] [address] 01/25/2025 9:40 AM CONTACT CENTER SPECIALIST Office Visit [facility] - [facility] [address] [facility] [place] [phone] Nhan Garcia MD 3 [facility] [place] [place] [address] 03/05/2025 9:00 AM CONTACT CENTER SPECIALIST Office Visit [facility] THREE [facility] [place] [address] [place] [address] Isael Khalil MD Three [facility]. [place] [address] [place] [address] documented as of this encounter Visit Diagnoses Not on filedocumented in this encounter Additional Health Concerns Infection Onset Date Last Indicated Resolved Time COVID-19 Rule Out 03/19/2021 03/19/2021 03/19/2021 2:05 PM CONTACT CENTER SPECIALIST COVID-19 Rule Out 03/19/2021 03/19/2021 03/21/2021 12:00 AM CONTACT CENTER SPECIALIST COVID-19 Rule Out 12/01/2021 12/01/2021 12/01/2021 11:38 PM CDT Assessment Noted Time PHQ-9 Depression Total Score: 0 02/07/20 21 1:43 PM CONTACT CENTER SPECIALIST documented as of this encounter Care Teams Dip Tube Assembler Machine Relationship Specialty Start Date End Date Radha Tucker APNP [address] [place] [address] PCP - General NURSE PRACTITIONER 12/30/20 Isael Khalil MD [facility]. [place] [address] [place] [address] [place] Payment Processor CARDIOVASCULAR DISEASE 04/28/17 Tee Fajardo MD [facility]. [place] [id number] [place] [address] EP Payment Processor CLINICAL CARDIAC ELECTROPHYSIOLOGY 08/30/18 documented as of this encounter
--- OUTSIDE RECORDS SUMMARY | 2024-05-02 01:17 | XMS_ITS | Continuity of Care Document ---
Author Organization [facility] Address [address] [place] [address] Phone Care Team Providers Care Inspector Balance Wheel Motion Name Role Phone Luis Miguel Jenkins DO Unavailable Unavailable Advance Directives Directive Yes / No Effective Date File Name No Information Encounters Encounter Description Practice Location Reason(s) For Visit Diagnoses Date Provider Providers Copied on [facility] [address], [place], [place], [id number], [place] tel:[phone] [facility] No Information [place]. [address] [facility], [place], [address], [place]. tel: [phone] Family History Family Member Type Diagnosis Age At Onset No Information Payers Payer name Insurance type Covered democrat ID Authoriza tion(s) No Information Social History Type Description Quantity Date Captured Comments Sex Female Smoking Status No Information Chief Complaint And Reason For Visit No Information Reason For Referral Reason For Referral No Information History Of Present Illness Encounter Date Complaint History Of Prese nt Illness No Information Functional Status Date Functional Assessmen t No Information Instructions Date Instruction Additional Infor mation No Information Assessments Type Assessment Date No Information Patient Care Teams Name Effective Dates (start - stop) Status Members No Information
--- OUTSIDE RECORDS SUMMARY | 2024-05-02 01:17 | XMS_ITS | Encounter Summary ---
Author Organization [facility] Address [facility] [place] [address] Care Team Providers Care Microbiology Lab Technician Name Role Phone Isael Khalil MD Unavailable [phone] Tee Fajardo MD Unavailable Radha Tucker Primary Care Provider [phone] Encounter Details Date Type Department Care Team (Late st Contact Info) Description 01/27/2021 MyChart Message Enc [facility] Medical Group Family & Internal Medicine [facility] [address] [place] [address] Radha Tucker APNP [address] [place] [address] RE: Medication Questions Social History Tobacco Use Types Packs/Day Years Used Date Smoking Tobacco: Never Smokeless Tobacco: Never Alcohol Use Standard Drinks/Week Comments No 0 (1 standard drink = 0.6 oz pur e alcohol) PHQ-2 Answer Date Recorded PHQ-2 Score - If the patient scores above 3, please move on to questions 3-9 0 12/30/2020 Comments No Sex and Gender Information Value Date Recorded Sex Assigned at Not on file Legal Sex Female 3:25 PM CLEARING SUPERVISOR Gender Identity Female 03/31/2021 3:03 PM CLEARING SUPERVISOR Sexual Orientation Straight 03/31/2021 3: 03 PM CLEARING SUPERVISOR Occupation Industry Job Start Date Job End Date Not on file Not on file Not on file Not on file COVID-19 Exposure Response Date Recorded In the last month, have you been in contact with someone who was confirmed or suspected to have Coronavirus / COVID-19? No / Unsure 01/07/2021 8:16 AM CDT documented as of this encounter [...] st Contact Info) Description 05/07/2024 1:00 PM CLEARING SUPERVISOR Office Visit [facility] Multispecialty Care - [address], [address] [place] [address] Radha Tucker, LUCIO [address] [place] [address] Raj Barbour MD [address] [place] [address] 01/25/2025 9:40 AM CLEARING SUPERVISOR Office Visit [facility]ialty Care - [facility] 3 [facility] [address] [place] [phone] Nhan Garcia MD 3 [facility] [place] [address] [place] [address] 03/05/2025 9:00 AM CLEARING SUPERVISOR Office Visit [facility] THREE [facility], [place] [place] [address] Isael Khalil MD Three [facility]. [place] [address] [place], [place] [address] documented as of this encounter Visit Diagnoses Not on filedocumented in this encounter Additional Health Concerns Infection Onset Date Last Indicated Resolved Time COVID-19 Rule Out 03/19/2021 03/19/2021 03/19/2021 2:05 PM CLEARING SUPERVISOR COVID-19 Rule Out 03/19/2021 03/19/2021 03/21/2021 12:00 AM CLEARING SUPERVISOR COVID-19 Rule Out 12/01/2021 12/01/2021 12/01/2021 11:38 PM CDT Assessment Noted Time PHQ-9 Depression Total Score: 2 12/31/19 21 12:03 PM CDT documented as of this encounter Care Teams Microbiology Lab Technician Relationship Specialty Start Date End Date Radha Tucker APNP [address] [place] [address] PCP - General NURSE PRACTITIONER 12/30/20 Isael Khalil MD Three [facility]. [place] [address] [place], [place] [address] [place] Eligibility Examiner CARDIOVASCULAR DISEASE 04/28/17 Tee Fajardo MD [facility]. [address] [address] EP Eligibility Examiner CLINICAL CARDIAC ELECTROPHYSIOLOGY 08/30/18 documented as of this encounter
--- OUTSIDE RECORDS SUMMARY | 2024-05-02 01:17 | XMS_ITS | Encounter Summary ---
Author Organization [facility] Address [facility] [place] [address] Care Team Providers Care Member Of Parliament Name Role Phone Isael Khalil MD Unavailable [phone] Tee Fajardo MD Unavailable Radha Tucker Primary Care Provider [phone] Encounter Details Date Type Department Care Team (Late st Contact Info) Description 07/22/2021 TeraFirrma Message Enc [facility] kiki [address] [facility], [facility] [address] [place] [address] Isael Khalil MD Three [facility]. 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 * Yoly Mondragon NP - 07/23/2021 10:58 AM CDT Try to obtain. Should not delay her surgery though * Chandni Huff RN - 07/23/2021 9:04 AM CDT . documented in this encounter Plan of Treatment Upcoming Encounters Date Type Department Care Team (Late st Contact Info) Description 05/07/2024 1:00 PM FOUNDER [facility] 3 [facility], [address] [place] [phone] Radha Tucker, APNP [address] [place] [address] Raj Barbour MD 3 [place] [address] 01/25/2025 9:40 AM FOUNDER Office Visit [facility] 3 [facility] [address] [place] [phone] Nhan Garcia MD 3 [facility] [place] [place] [address] 03/05/2025 9:00 AM FOUNDER Office Visit [facility] [address] [facility], [place] [address] [place] [address] Isael Khalil MD Three [facility]. [place] [address] [place] [address] documented as of this encounter Visit Diagnoses Not on filedocumented in this encounter Additional Health Concerns Infection Onset Date Last Indicated Resolved Time COVID-19 Rule Out 12/01/2021 12/01/2021 12/01/2021 11:38 PM CDT Assessment Noted Time PHQ-9 Depression Total Score: 0 06/04/19 22 8:33 AM CDT documented as of this encounter Care Teams Member Of Parliament Relationship Specialty Start Date End Date Radha Tucker APNP [address] [place] [address] PCP - General NURSE PRACTITIONER 12/30/20 Isael Khalil MD Three [facility]. [address] [address] [place] Plater Supervisor CARDIOVASCULAR DISEASE 04/28/17 Tee Fajardo MD Three [facility]. [address] [address] EP Plater Supervisor CLINICAL CARDIAC ELECTROPHYSIOLOGY 08/30/18 documented as of this encounter
--- OUTSIDE RECORDS SUMMARY | 2024-05-02 01:17 | XMS_ITS | Encounter Summary ---
Author Organization [facility] Address [facility] [place] [address] Care Team Providers Care Stage Set Up Worker Name Role Phone Paul Finley DO Primary Care Provider [phone] Isael Khalil MD Unavailable [phone] Tee Fajardo MD Unavailable Yehuda Carrasco MD Primary Care Provider [phone] Radha Tucker Primary Care Provider [phone] Encounter Details Date Type Department Care Team (Late st Contact Info) Description 04/13/2019 Fourier Educationt Message Enc [facility] Medical [facility] Family Medicine - [place] 5 [place] [address] Aide Vieyra NP [address] [place] [address] Question Social History Tobacco Use Types Packs/Day Years Used Date Smoking Tobacco: Never Smokeless Tobacco: Never Alcohol Use Standard Drinks/Week Comments No 0 (1 standard drink = 0.6 oz pur e alcohol) Comments No Sex and Gender Information Value Date Recorded Sex Assigned at Not on file Legal Sex Female 3:25 PM NAIL ARTIST Gender Identity Female 03/31/2021 3:03 PM NAIL ARTIST Sexual Orientation Straight 03/31/2021 3: 03 PM NAIL ARTIST Occupation Industry Job Start Date Job End Date Not on file Not on file Not on file Not on file documented as of this encounter Functional Status * RETIRED Are you deaf or do you have serious difficulty hearing Answer Date of Assessment Author Status No 01/26/2019 8:56 AM NAIL ARTIST Activ e * RETIRED Are you blind or do you have serious difficulty seeing, even when wearing glasses? Answer Date of Assessment Author Status No 01/26/2019 8:56 AM NAIL ARTIST Activ e * Do you have serious [...] Progress Notes * Henrique Wu RN - 04/13/2019 8:50 AM CST Spoke to patient and she made appt for 1140 today to discuss symptoms. Informed her to go to ER if any of the below develop and she verbalized understanding. ARTIST * Aide Vieyra NP - 04/13/2019 8:43 AM CST Please make an apt to discuss Sx If extreme pain or neurological Sx, falling, extreme h/a or vision changes, loss of bowel or bladder then go to ER. Thank you ARTIST * Henrique Wu RN - 04/13/2019 8:13 AM CST Please advise. Thanks! ARTIST documented in this encounter Plan of Treatment Upcoming Encounters Date Type Department Care Team (Late st Contact Info) Description 05/07/2024 1:00 PM NAIL ARTIST [facility] 3 [facility], [address] [place] [phone] Radha Tucker, APNP [address] [place] [address] Raj Barbour MD 3 [facility] [place] [address] 01/25/2025 9:40 AM NAIL ARTIST [facility] 3 [facility] [place] [phone] Nhan Garcia MD 3 [facility] [place] [place] [address] 03/05/2025 9:00 AM NAIL ARTIST Office Visit [facility] THREE [facility], [place] [address] [place] [address] Isael Khalil MD Three [facility]. [place] [address] [place] [address] documented as of this encounter Visit Diagnoses Not on filedocumented in this encounter Additional Health Concerns Infection Onset Date Last Indicated Resolved Time COVID-19 Rule Out 08/06/2019 08/06/2019 08/08/2019 10:44 AM CDT COVID-19 Rule Out 02/29/2020 02/29/2020 03/01/2020 7:50 PM NAIL ARTIST COVID-19 Rule Out 03/19/2021 03/19/2021 03/19/2021 2:05 PM NAIL ARTIST COVID-19 Rule Out 03/19/2021 03/19/2021 03/21/2021 12:00 AM NAIL ARTIST COVID-19 Rule Out 12/01/2021 12/01/2021 12/01/2021 11:38 PM CDT documented as of this encounter Care Teams Stage Set Up Worker Relationship Specialty Start Date End Date Finley Paul DO Isidra PCP - General FAMILY PRACTICE 08/20/15 06/03/19 Yehuda Carrasco MD [facility]. [facility] [address] [place], [place] [address] PCP - General FAMILY PRACTICE 06/04/19 12/29/20 Radha Tucker APNP [address] [place] [id number] PCP - General NURSE PRACTITIONER 12/30/20 Isael Khalil MD [facility] [address] [place], [place] [address] Lindsay Character Impersonator CARDIOVASCULAR DISEASE 04/28/17 Tee Fajardo MD [facility] [address] [place], [place] [address] EP Character Impersonator CLINICAL CARDIAC ELECTROPHYSIOLOGY 08/30/18 documented as of this encounter
--- OUTSIDE RECORDS SUMMARY | 2024-05-02 01:17 | XMS_ITS | Encounter Summary ---
Author Organization [facility] Address [facility]6 [place] [address] Care Team Providers Care Hand Touch Up Painter Name Role Phone Isael Khalil MD Unavailable [phone] Tee Fajardo MD Unavailable Yehuda Carrasco MD Primary Care Provider [phone] Radha Tucker Primary Care Provider [phone] Encounter Details Date Type Department Care Team (Late st Contact Info) Description 11/03/2020 eSolart Message Enc [facility] Medical Group Multispecialty Care - [address], [address] [place] [address] Deborah Arvizu, LUCIO [address] [address] Other Social History Tobacco Use Types Packs/Day [...] on file Legal Sex Female 3:25 PM CLINICAL RN MANAGER Gender Identity Female 03/31/2021 3:03 PM CLINICAL RN MANAGER Sexual Orientation Straight 03/31/2021 3: 03 PM CLINICAL RN MANAGER Occupation Industry Job Start Date Job [...] st Contact Info) Description 05/07/2024 1:00 PM CLINICAL RN MANAGER [facility] [address], [address] [place] [address] Radha Tucker, APNP [address] [place] [address] Raj Barbour MD [address] [place] [address] 01/25/2025 9:40 AM CLINICAL RN MANAGER [facility] 3 [facility] [address] [place] [address] Nhan Garcia MD [facility] [place] [address] [place] [address] 03/05/2025 9:00 AM CLINICAL RN MANAGER Office Visit [facility] THREE [facility], [place] [address] [place] [address] Isael Khalil MD Three [facility]. [place] [address] [place], [place] [address] documented as of this encounter Visit Diagnoses Not on filedocumented in this encounter Additional Health Concerns Infection Onset Date Last Indicated Resolved Time COVID-19 Rule Out 03/19/2021 03/19/2021 03/19/2021 2:05 PM CLINICAL RN MANAGER COVID-19 Rule Out 03/19/2021 03/19/2021 03/21/2021 12:00 AM CLINICAL RN MANAGER COVID-19 Rule Out 12/01/2021 12/01/2021 12/01/2021 11:38 PM CDT documented as of this encounter Care Teams Hand Touch Up Painter Relationship Specialty Start Date End Date Yehuda Carrasco MD Three [facility]. [place] [address] [place] [address] PCP - General FAMILY PRACTICE 06/04/19 12/29/20 Radha Tucker APNP [address] [place] [address] PCP - General NURSE PRACTITIONER 12/30/20 Isael Khalil MD Three [facility]. [place] [address] [place], [place] [address] [place] Scheduler CARDIOVASCULAR DISEASE 04/28/17 Tee Fajardo MD [facility]. [place] [address] [place] [address] EP Scheduler CLINICAL CARDIAC ELECTROPHYSIOLOGY 08/30/18 documented as of this encounter
--- OUTSIDE RECORDS SUMMARY | 2024-05-02 01:17 | XMS_ITS | Encounter Summary ---
Author Organization [facility] Address [facility] [place] [address] Care Team Providers Care Rn Transition Name Role Phone Isael Khalil MD Unavailable [phone] Tee Fajardo MD Unavailable Radha Tucker Primary Care Provider [phone] Encounter Details Date Type Department Care Team (Late st Contact Info) Description 06/11/2021 Weimi Message Enc [facility] kiki THREE [facility] [address] [place] [address] Isael Khalil MD Three [facility]. [facility] [address] [place], [place] [phone] Upcoming surgery Social History Tobacco Use Types Packs/Day Years [...] on file Legal Sex Female 3:25 PM DITTO MACHINE OPERATOR Gender Identity Female 03/31/2021 3:03 PM DITTO MACHINE OPERATOR Sexual Orientation Straight 03/31/2021 3: 03 PM DITTO MACHINE OPERATOR Occupation Industry Job Start Date Job End Date [employer] Not on file Not on file Not on file COVID-19 Exposure Response Date Recorded In the last 10 days, have yo u been in contact with someone who was confirmed or suspected to have Coronavirus/COVID-19? No / Unsure 05/31/2021 10:33 AM CDT documented as of this encounter [...] Progress Notes * Chandni Huff RN - 07/09/2021 4:46 PM CDT Received fax from Dr. Sanchez office requesting cardiac clearance. Printed and put on yoly GRAHAM desk for review if needed. * Chandni Huff RN - 07/09/2021 3:44 PM CDT Message left for them to return my call. * Yoly Mondragon NP - 07/09/2021 3:38 PM CDT Can you call this office and ask for an official letter? Need to know the type of surgery, etc. * Chandni Huff RN - 07/09/2021 2:34 PM CDT . * Chandni Huff RN - 06/11/2021 1:41 PM CDT . documented in this encounter Plan of Treatment Upcoming Encounters Date Type Department Care Team (Late st Contact Info) Description 05/07/2024 1:00 PM DITTO MACHINE OPERATOR [facility] - [address], [address] [place] [phone] Radha Tucker H, [place] [address] [place] [address] Raj Barbour MD 3 [place] [address] 01/25/2025 9:40 AM DITTO MACHINE OPERATOR [facility] 3 [facility] [address] [place] [phone] Nhan Garcia MD 3 [facility] [place] [address] [place] [address] 03/05/2025 9:00 AM DITTO MACHINE OPERATOR Office Visit [facility] THREE [facility], [place] [address] [place] [address] Isael Khalil MD [facility]. [place] [address] [place], [place] [address] documented as of this encounter Visit Diagnoses Not on filedocumented in this encounter Additional Health Concerns Infection Onset Date Last Indicated Resolved Time COVID-19 Rule Out 12/01/2021 12/01/2021 12/01/2021 11:38 PM CDT Assessment Noted Time PHQ-9 Depression Total Score: 0 06/04/19 8:33 AM CDT documented as of this encounter Care Teams Rn Transition Relationship Specialty Start Date End Date Radha Tucker APNP [address] [place] [address] PCP - General NURSE PRACTITIONER 12/30/20 Isael Khalil MD [facility]. [place] [address] [place] [address] [employer] Installation [employer] Maintenance Executive CARDIOVASCULAR DISEASE 04/28/17 Tee Fajardo MD [facility]. [place] [address] [place], [place] [address] EP Installation & Maintenance Executive CLINICAL CARDIAC ELECTROPHYSIOLOGY 08/30/18 documented as of this encounter
--- OUTSIDE RECORDS SUMMARY | 2024-05-02 01:17 | XMS_ITS | Encounter Summary ---
Author Organization [facility] Address [facility] [place] [address] Care Team Providers Care Machine Feeder Floorperson Name Role Phone Isael Khalil MD Unavailable [phone] Tee Fajardo MD Unavailable Yehuda Carrasco MD Primary Care Provider [phone] Radha Tucker Primary Care Provider [phone] Encounter Details Date Type Department Care Team (Late st Contact Info) Description 09/08/2020 Aspiret Message Enc [facility] Medical Group Multispecialty Care - [address], [address] [place] [phone] Deborah Arvizu, LUCIO [address] [address] Test Results Social History Tobacco Use Types [...] on file Legal Sex Female 3:25 PM TECHNICAL FELLOW Gender Identity Female 03/31/2021 3:03 PM TECHNICAL FELLOW Sexual Orientation Straight 03/31/2021 3: 03 PM TECHNICAL FELLOW Occupation Industry Job Start Date Job End [...] st Contact Info) Description 05/07/2024 1:00 PM TECHNICAL FELLOW Office Visit [facility] Medical Group Multispecialty Care - [address], [address] [place] [address] Radha Tucker APNP [address] [place] [address] Raj Barbour MD [address] [place] [address] 01/25/2025 9:40 AM TECHNICAL FELLOW Office Visit [facility] Medical Group Multispecialty Care - Health system 3 [facility] [address] [place] [address] Nhan Garcia MD 3 [facility] [place] [place] [address] 03/05/2025 9:00 AM TECHNICAL FELLOW Office Visit [facility] THREE [facility], [place] [place] [address] Isael Khalil MD Three [facility]. [place] [address] [place] [address] documented as of this encounter Visit Diagnoses Not on filedocumented in this encounter Additional Health Concerns Infection Onset Date Last Indicated Resolved Time COVID-19 Rule Out 03/19/2021 03/19/2021 03/19/2021 2:05 PM TECHNICAL FELLOW COVID-19 Rule Out 03/19/2021 03/19/2021 03/21/2021 12:00 AM TECHNICAL FELLOW COVID-19 Rule Out 12/01/2021 12/01/2021 12/01/2021 11:38 PM CDT documented as of this encounter Care Teams Machine Feeder Floorperson Relationship Specialty Start Date End Date Yehuda Carrasco MD Three [facility]. [place] [address] [place] [address] PCP - General FAMILY PRACTICE 06/04/19 12/29/20 Radha Tucker APNP [address] [place] [address] PCP - General NURSE PRACTITIONER 12/30/20 Isael Khalil MD Three [facility] [address] [place] [address] [place] [address] [place] [employer] Executive CARDIOVASCULAR DISEASE 04/28/17 Tee Fajardo MD [facility] [place] [address] [place], [place] [address] EP Research And Insights Executive CLINICAL CARDIAC ELECTROPHYSIOLOGY 08/30/18 documented as of this encounter
[2024-05-02 07:51] VITALS: BP 148/50; PULSE 88; RESP 16; TEMP 36.4; O2SAT 97; BMI 30.5
[2024-05-02] MEDS: LACTATED RINGERS 1,000 ML 150 ML IV CONT (08:01)
--- NOTE | 2024-05-02 08:12 | P.PNAN_ITS ---
Anes - Initial Pre Proc Eval Procedure: Operation Date: 05/02/24 09:00 Proposed Procedures p Colonoscopy - Apollo Beal MD Date/Time: 05/02/24 08:12 Surgeon: Apollo Beal MD Pre Op Diagnosis: hx of colon polyps,constipation Patient Data Age: 69 Gender: F Height: 1.7 m Weight: 88.4 kg Last Vital Signs Temp 97.5 F L 05/02/24 07:51 Pulse 88 05/02/24 07:51 Resp 16 05/02/24 07:51 BP 148/50 H 05/02/24 07:51 Pulse Ox 97 05/02/24 07:51 O2 Del Method Room Air 05/02/24 07:51 Allergies Allergy/AdvReac Type Severity Reaction Status Date / Time gemifloxacin Allergy Severe Rash Verified 05/02/24 07:49 cefuroxime Allergy Unknown Rash Verified 05/02/24 07:49 Cephalosporins Allergy Unknown Rash Verified 05/02/24 07:49 Quinolones Allergy Unknown Rash Verified 05/02/24 07:49 nalbuphine (From Nubain) AdvReac Nausea and Verified 05/02/24 07:49 Vomiting Home Medications ?Medication ?Instructions ?Recorded ?Confirmed ?Type ramipril 10 mg capsule (Altace) 10 mg PO BID 02/05/20 05/02/24 History hydrochlorothiazide 12.5 mg tablet 12.5 mg PO QAM 07/09/21 05/02/24 History calcium 600 mg (as 2 tablet PO DAILY 07/20/21 05/02/24 History carbonate)-vitamin D3 10 mcg (400 unit) tablet (Calcium 600 + D(3)) famotidine 20 mg tablet (Pepcid) 20 mg PO BID 07/20/21 05/02/24 History estradiol 0.01% (0.1 mg/gram) 1 g vaginal 2XW #42.5 grams 05/17/23 05/02/24 Rx vaginal cream (Estrace) linaclotide 72 mcg capsule 72 mcg PO DAILY #30 caps 01/05/24 05/02/24 Rx (Linzess) cyclosporine 0.05 % eye drops in a 1 drp EACH EYE BID 01/13/24 05/02/24 History dropperette (Restasis) levothyroxine 100 mcg tablet 100 mcg PO QAM 01/13/24 05/02/24 History (Synthroid) linaclotide 290 mcg capsule 290 mcg Capsule#1 Samples 03/27/24 05/02/24 Sample (Linzess) Patient hx anesthesia problems: none Family hx anesthesia problems: none Results Review: All pre-operative results and documents have been reviewed as part of the pre- operative evaluation. [facility] Past Medical History Medical History Dry eye Hypothyroid KRISTIAN (obstructive sleep apnea) Hypertension Arthritis History of diverticulosis Surgical History Surgical History S/P cystoscopy History of bladder surgery Urethral Sling S/P sacrocolpopexy H/O bilateral salpingo-oophorectomy S/P laparoscopic supracervical hysterectomy H/O cardiac radiofrequency ablation Hx of neck surgery History of right knee joint replacement Family History Family History Grandparent Diabetes mellitus, Onset Age: 85 Carcinoma of colon Family history of pulmonary embolism, Onset Age: 91 Family history of tuberculosis Sibling Family history of blood dyscrasia, Onset Age: 51 Cerebrovascular accident, Onset Age: 51 Patient's sister is Family history of migraine headaches Asthma Family history of eczema Patient's brother is in good health, Onset Age: 56 Family history of allergic disorder Family history of elevated blood lipids Father Hypertension Family history of coronary artery disease, Onset Age: 71 Patient's father is Family history of premature coronary heart disease, Onset Age: 70 Mother Carcinoma of colon Patient's mother is Family history of migraine headaches Asthma Family history of osteoarthritis Family history of hearing loss, Onset Age: 65 Other Family history of malignant neoplasm of male breast Social History Social History Smoking status: Never smoker Second hand tobacco smoke exposure: No Alcohol intake: never Substance use: never Substance use type: does not use Lack of Transportation: No Lack of Food: Never True Current Housing: I Have Housing Concerned About Future Housing: No Difficulty Paying Gas/Electric Bills: No Difficulty Paying for Meds: No Currently Unemployed: No Education: High School Diploma/GED Living arrangements: with family Spiritual care concerns: No Anes - Eval Final PreProcedure Day of Procedure 05/02/24 08:12 Patient weight: overweight Lungs: normal air movement Airway: Mallampati scale class II Neurological: alert and oriented Last oral intake: >/= 8 hours ASA classification: II Emergent: no Anesthetic plan: proceed Anesthesia type and monitoring: general GIVS and standard monitoring Results Review: All pre-operative results and documents have been reviewed as part of the pre- operative evaluation. HTN, hypothyroidism. Informed Consent: The patient's anesthetic plan and its attendant risks and benefits were discussed with the patient/family/POA. Questions were solicited and answers provided to the satisfaction of the patient/family/POA.
--- NOTE | 2024-05-02 08:41 | PM.IMHP ---
H&P: HPI History of Present Illness Date/Time: 05/02/24 08:41 Chief Complaint: family history of colon cancer Narrative: This patient has family history of colorectal cancer. Her mother had CRC when she was 70. in addition, the patient has a history of tubular adenomas. Her last colonoscopy was 2 years ago, however, it was not completed due to excessive looping. Review of Systems Review of Systems: All systems reviewed & are unremarkable except as noted in HPI and below PMFSH Past Medical History Medical History Dry eye Hypothyroid KRISTIAN (obstructive sleep apnea) Hypertension Arthritis History of diverticulosis Surgical History Surgical History S/P cystoscopy History of bladder surgery Urethral Sling S/P sacrocolpopexy H/O bilateral salpingo-oophorectomy S/P laparoscopic supracervical hysterectomy H/O cardiac radiofrequency ablation Hx of neck surgery History of right knee joint replacement Family History Family History Grandparent Diabetes mellitus, Onset Age: 85 Carcinoma of colon Family history of pulmonary embolism, Onset Age: 91 Family history of tuberculosis Sibling Family history of blood dyscrasia, Onset Age: 51 Cerebrovascular accident, Onset Age: 51 Patient's sister is Family history of migraine headaches Asthma Family history of eczema Patient's brother is in good health, Onset Age: 56 Family history of allergic disorder Family history of elevated blood lipids Father Hypertension Family history of coronary artery disease, Onset Age: 71 Patient's father is Family history of premature coronary heart disease, Onset Age: 70 Mother Carcinoma of colon Patient's mother is Family history of migraine headaches Asthma Family history of osteoarthritis Family history of hearing loss, Onset Age: 65 Other Family history of malignant neoplasm of male breast Social History Social History Smoking status: Never smoker Second hand tobacco smoke exposure: No Alcohol intake: never Substance use: never Substance use type: does not use Lack of Transportation: No Lack of Food: Never True Current Housing: I Have Housing Concerned About Future Housing: No Difficulty Paying Gas/Electric Bills: No Difficulty Paying for Meds: No Currently Unemployed: No Education: High School Diploma/GED Living arrangements: with family Spiritual care concerns: No Meds Home Medications and Allergies Home Medications ?Medication ?Instructions ?Recorded ?Confirmed ?Type ramipril 10 mg capsule (Altace) 10 mg PO BID 02/05/20 05/02/24 History hydrochlorothiazide 12.5 mg tablet 12.5 mg PO QAM 07/09/21 05/02/24 History calcium 600 mg (as 2 tablet PO DAILY 07/20/21 05/02/24 History carbonate)-vitamin D3 10 mcg (400 unit) tablet (Calcium 600 + D(3)) famotidine 20 mg tablet (Pepcid) 20 mg PO BID 07/20/21 05/02/24 History estradiol 0.01% (0.1 mg/gram) 1 g vaginal 2XW #42.5 grams 05/17/23 05/02/24 Rx vaginal cream (Estrace) linaclotide 72 mcg capsule 72 mcg PO DAILY #30 caps 01/05/24 05/02/24 Rx (Linzess) cyclosporine 0.05 % eye drops in a 1 drp EACH EYE BID 01/13/24 05/02/24 History dropperette (Restasis) levothyroxine 100 mcg tablet 100 mcg PO QAM 01/13/24 05/02/24 History (Synthroid) linaclotide 290 mcg capsule 290 mcg Capsule#1 Samples 03/27/24 05/02/24 Sample (Linzess) Allergies Allergy/AdvReac Type Severity Reaction Status Date / Time gemifloxacin Allergy Severe Rash Verified 05/02/24 07:49 cefuroxime Allergy Unknown Rash Verified 05/02/24 07:49 Cephalosporins Allergy Unknown Rash Verified 05/02/24 07:49 Quinolones Allergy Unknown Rash Verified 05/02/24 07:49 nalbuphine (From Nubain) AdvReac Nausea and Verified 05/02/24 07:49 Vomiting Vital Signs Vital Signs - 24 hr 05/02/24 07:51 Temperature 97.5 F L Pulse Rate 88 Respiratory Rate 16 Blood Pressure 148/50 H Pulse Oximetry 97 Oxygen Delivery Room Air Exam Const: General: cooperative and healthy appearing Resp: Effort & Inspection: normal respiratory effort and able to speak in complete sentences Auscultation: clear to auscultation bilaterally Cardio: Rate: regular rate Rhythm: regular rhythm GI: Inspection: normal to inspection GI Palp: No No hepatosplenomegaly present Auscultation: normal bowel sounds Rectal Exam: deferred Skin: General skin exam: normal color Psych: Appearance: grossly normal Mental Status: mental status grossly normal Assessment and Plan Assessment and plan (1) Personal history of colon polyps, unspecified: Code(s): Z86.010 - Personal history of colon polyps Status: Acute Assessment and Plan: The patient is deemed a good candidate for the procedure. Consent signed. Will proceed. (2) Family history of colon cancer: Code(s): Z80.0 - Family history of malignant neoplasm of digestive organs Status: Acute
[2024-05-02 09:09] VITALS: BP 115/56; PULSE 61; RESP 20; O2SAT 98
[2024-05-02 09:19] VITALS: BP 102/50; PULSE 61; RESP 20; O2SAT 98
[2024-05-02 09:29] VITALS: BP 98/60; PULSE 56; RESP 22; O2SAT 100
== END 2024-05-02 09:44 | disposition home or self-care (01) ==
PROVIDERS: PCP Registered Nurse; Referring Provider Nurse Practitioner Family; Visit Provider Internal Medicine Gastroenterology
PROC: 0DJD8ZZ Inspection of Lower Intestinal Tract, Via Natural or Artificial Opening Endoscopic (ICD-10-PCS; CPT 45378; principal; 2024-05-02 09:00)
DX: Z12.11 Encounter for screening for malignant neoplasm of colon (principal); D12.0 Benign neoplasm of cecum; K57.30 Diverticulosis of large intestine without perforation or abscess without bleeding; Z80.0 Family history of malignant neoplasm of digestive organs
CPT/HCPCS: 45385; 88305; J2704; J7120

== ENCOUNTER 2024-08-31 14:53 | Outpatient (CLI) | payer MEDICARE, SELFPAY ==
--- NOTE | ~2024-08-31 | MM_ITS ---
EXAMINATION: MM screening vic BI w zoila HISTORY: Screening TECHNIQUE: Craniocaudal and mediolateral oblique 3-D tomosynthesis images were obtained and synthetic 2-D images were generated. CAD analysis was submitted and interpreted. COMPARISON: Comparison to multiple prior studies sequentially, with oldest reviewed study dated 12/19. BREAST PARENCHYMAL COMPOSITION: Not dense: There are scattered areas of fibroglandular density. FINDINGS: There is no evidence of suspicious mass, calcification, or architectural distortion to sugg est malignancy in either breast. There has been no suspicious interval change. IMPRESSION: 1. No mammographic evidence of malignancy. 2. Recommend routine screening mammography in one year. BI-RADS Category 1: Negative Reviewed, dictated and finalized at location B.
== END 2024-08-31 14:54 | disposition home or self-care (01) ==
LOC: MICIMG 14:54
PROVIDERS: PCP Obstetrics & Gynecology; Visit Provider Obstetrics & Gynecology
DX: Z12.31 Encounter for screening mammogram for malignant neoplasm of breast (principal)
CPT/HCPCS: 77063; 77067

== ENCOUNTER 2024-12-17 08:43 | Outpatient (CLI) | payer MEDICARE, SELFPAY ==
--- NOTE | ~2024-12-17 | DEXA_ITS ---
Bone Density Report Name: SG DASILVA Age: 69 Sex: Female Ethnicity: White Date of : 1955 Indication: postmenopausal; screening for osteoporosis; prior fracture; hysterectomy; Referring Provider: ATTILA BLANCHARD Study: Bone densitometry was performed. Exam Date: December 17, 2024 Accession number: [id number] Bone Density: Region BMD T-score Z-score Classification AP Spine(L1-L4) 1.082 0.3 2.4 Normal Femoral Neck (Left) 0.727 -1.1 0.7 Osteopenia Total Hip (Left) 1.022 0.7 2.1 Normal Femoral Neck (Right) 0.732 -1.1 0.7 Osteopenia Total Hip (Right) 0.980 0.3 1.8 Normal Total Hip Mean 1.001 0.5 2.0 Normal World Health Organization criteria for BMD impression classify patients as: Normal (T-score at or above -1.0), Osteopenia (T-score between -1.0 and -2.5), or Osteoporosis (T-score at or below -2.5). 10-year Fracture Risk(1): Major Osteoporotic Fracture 14% Hip Fracture 1.5% Reported Risk Factors: [place] (), Neck BMD=0.727, BMI=29.6, previous fracture (1) FRAX(R) Version 3.08. Fracture probability calculated for an untreated patient. Fracture probability may be lower if the patient has received treatment. Previous Exams: -- Region Exam Age BMD T-score BMD Change BMD Change Date g/cm2 vs Baseline vs Previous -- AP Spine (L1-L4) 12/17/2024 69 1.082 0.3 -4.6%# -0.2%# 06/11/2021 66 1.085 0.3 -4.4%* 3.1%* 07/05/2018 63 1.053 0.1 -7.2%* 0.7%# 11/21/2014 59 1.046 0.0 -7.8%# -4.5%# 10/29/2011 56 1.096 0.4 -3.5%* 0.6%# 03/19/2009 54 1.089 0.4 -4.0%# -4.0%# 02/09/2008 53 1.135 0.8 Total Hip(Left) 12/17/2024 69 1.022 0.7 -10.9%# -10.1%# 06/11/2021 66 1.136 1.6 -1.0% 2.7%* 07/05/2018 63 1.106 1.3 -3.6%* -5.5%# 11/21/2014 59 1.170 1.9 2.0%# -1.9%# 10/29/2011 56 1.192 2.1 3.9%* 14.6%# 03/19/2009 54 1.040 0.8 -9.3%# -9.3%# 02/09/2008 53 1.147 1.7 Total Hip(Right) 12/17/2024 69 0.980 0.3 -12.7%# -5.0%# 06/11/2021 66 1.032 0.7 -8.1%* 0.7% 07/05/2018 63 1.025 0.7 -8.7%* -6.9%# 11/21/2014 59 1.101 1.3 -2.0%# -3.4%10/29/2011 56 1.139 1.6 1.5% 9.7%# 03/19/2009 54 1.039 0.8 -7.5%# -7.5%# 02/09/2008 53 1.123 1.5 -- *Denotes significance at 95% confidence level, LSC for AP Spine = 0.022 g/cm2, LSC for Total Hip = 0.027 g/cm2 # Denotes dissimilar scan types or analysis methods Clinical Information Provided by Patient: Has had a low trauma fracture Has used the following medications: HRT (i.e. estrogen/hormone therapy), Vitamin D, Calcium Has the following medical conditions: Hysterectomy Patient maximum height was 68 Menopause Age: 51 No regular weight bearing exercise Does not regularly consume dairy products Drinks caffeinated beverages Onset of menses at age 12 Number of children 2 Missed period for more than 6 months in a row Impression: The patient has low bone mass, based on the Left Femoral Neck T-score. The patient has an estimated ten-year risk of hip fracture of 1.5% and an estimated ten-year risk of major fracture of 14%, based on the WHO FRAX algorithm. The patient has risk factors, including: previous fracture. Unable to evaluate interval change due to the use of different scan modes. Discussion: BONE DENSITY IS LOW AT ONE OR MORE SKELETAL SITES. This patient's lowest T-score is low at one or more skeletal sites. It meets the World Health Organization's (WHO) criteria for ?low bone mass? (T-score between -1.0 and -2.5). The patient's 10-year risk of fracture as calculated by FRAX is less than the threshold where pharmacological therapy is recommended by the National Osteoporosis Foundation (NOF). However, all treatment decisions require clinical judgment and consideration of individual patient factors, including patient preferences, comorbidities, previous drug use, risk factors not captured in the FRAX model (e.g., frailty, falls, vitamin D deficiency, increased bone turnover, interval significant decline in bone density) and possible under or overestimation of fracture risk by FRAX. The patient should follow a healthful lifestyle (good nutrition with adequate calcium and vitamin D, and appropriate weight-bearing exercise). Follow-Up: Consider repeating this study in 2 to 3 years to reassess this patient's status, or sooner if there is some new clinical indication. Reported by: TIM on 12/17/2024 9:17:00 AM. Reviewed, dictated and finalized at location A.
== END 2024-12-17 08:44 | disposition home or self-care (01) ==
LOC: MICIMG 08:43
PROVIDERS: PCP Obstetrics & Gynecology; Visit Provider Obstetrics & Gynecology
DX: Z78.0 Asymptomatic menopausal state (principal); M85.852 Other specified disorders of bone density and structure, left thigh; M85.851 Other specified disorders of bone density and structure, right thigh
CPT/HCPCS: 77080